=== PATIENT | female | born 1945 | race Caucasian/White ===

== ENCOUNTER 2018-12-09 09:17 | Emergency (ER) | payer MEDICARE, SELFPAY ==
[2018-12-09] MEDS ORDERED: TYLENOL EXTRA STRENGTH 500 MG PO STA (09:50)
[2018-12-09] MEDS ORDERED: TYLENOL EXTRA STRENGTH 500 MG ONE (09:55)
--- NOTE | 2018-12-09 09:58 | ERPHSYRPT ---
- History of Present Illness Time Seen by Provider: 12/09/18 09:54 Source: patient Patient Subjective Stated Complaint: stated fell last night, leg gave out. co pain in left foot, hips, upper back/shoulder pain. rating pain 10/10 at this time after moving around. states unable to put any weight on left foot. states I feel like I need xrayed from my shoulder down. Triage Nursing Assessment: pt brought in by son in /. A/O speech clear, denies hitting head or loc. bruising noted to top of left foot. no other bruising or swelling noted. pt transferred to bed from [facility] with assist, no pressure applied to left. Physician History: mild ache pain constant for one day after trip and fall, left foot and hip and shoulder and back, no bleeding no neck pain no loc, speech fluent, no other injury Allergies/Adverse Reactions: Tetanus Vaccines and Toxoid [Tetanus Vaccines & Toxoid] Adverse Reaction (Severe , Verified 12/09/18 10:03) Difficulty Swallowing Home Medications: Aspirin 81 gm Chew [Baby Aspirin 81 mg Chew] 81 mg PO DAILY 12/31/14 [ History] Melatonin/Pyridoxine [Melatonin 3 mg Tablet] 1 tab PO HS PRN 12/31/14 [History] Naproxen Sodium 220 mg [Aleve 220 MG] 220 mg PO BID PRN 12/31/14 [History] Calcium Carb, Citrate/Vit D3 [Calcium + D3 ER Tablet] 1 ea PO DAILY 04/19/15 [ History] [place]-3 Fatty Acids/Fish Oil [Fish Oil 1,000 mg Softgel] 3 ea PO DAILY 04/19/15 [History] Vitamin E 1,000 unit PO DAILY 04/19/15 [History] Vitamin B Complex Vit C No.3 [B Complex with Vitamin C] 1 each PO DAILY [History] Atenolol 12.5 mg PO DAILY 12/09/18 [History] Lisinopril 10 mg [Zestril 10 MG] 10 mg PO DAILY 12/09/18 [History] Hx Tetanus, Diphtheria Vaccination/Date Given: No (recd once and had reaction to it) Hx Influenza Vaccination/Date Given: No Hx Pneumococcal Vaccination/Date Given: No Immunizations Up to Date: No - Review of Systems Constitutional: No Fever Eyes: No Vision Changes Ears, Nose, & Throat: No Throat Pain, No Painful Swallowing Respiratory: No Dyspnea Cardiac: No Chest Pain Abdominal/Gastrointestinal: No Abdominal Pain, No Vomiting Musculoskeletal: Back Pain, Fall, Joint Pain, No Neck Pain Skin: No Skin Lesions Neurological: No Dizziness, No Focal Weakness, No Headache, No Lethargy - Past Medical History Pertinent Past Medical History: Yes Neurological History: Other ENT History: Cataracts Cardiac History: Other Respiratory History: Other Endocrine Medical History: No Pertinent History Musculoskeletal History: Fibromyalgia, Osteoarthritis GI Medical History: No Pertinent History History: No Pertinent History Psycho-Social History: No Pertinent History Female Reproductive Disorders: No Pertinent History Other Medical History: R JONELLE 2006, blockages below the waist. Pt cant walk very far due to fatigue in legs. - Past Surgical History Past Surgical History: Yes Neuro Surgical History: No Pertinent History Cardiac: No Pertinent History Respiratory: No Pertinent History Gastrointestinal: No Pertinent History Genitourinary: No Pertinent History Musculoskeletal: Other Female Surgical History: Tubal Ligation, Other Other Surgical History: subcut. bakari. mastectomy with reconstruction,right hip replacement - Social History Smoking Status: Current every day smoker How long have you smoked: 45yrs Exposure to second hand smoke: Yes Drug Use: none Patient Lives Alone: No - Female History Hx Now: No - Nursing Vital Signs Nursing Vital Signs: Initial Vital Signs Temperature 99.2 F 12/09/18 09:17 Pulse Rate 70 12/09/18 09:17 Respiratory Rate 70 H 12/09/18 09:17 Blood Pressure 181/64 12/09/18 09:17 O2 Sat by Pulse Oximetry 97 12/09/18 09:17 Pain Scale Pain Intensity 6 - Adrein Coma Score Best Eye Response (Adrien): (4) open spontaneously Best Verbal Response ([place]): (5) oriented Best Motor Response (Adrien): (6) obeys commands Adrien Total: 15 - Physical Exam General Appearance: no apparent distress Head Injury: no evidence of injury Eye Exam: PERRL/EOMI, eyes nml inspection ENT Exam: airway nml Neck Exam: supple, full range of motion, No stiff neck, No meningismus Cardiovascular Exam: regular rate/rhythm Gastrointestinal Exam: soft, No tenderness Back Exam: other (tender lumbar paraspinal), No vertebral tenderness Extremity Exam: normal range of motion, pelvis stable, other (tender left deltoid and hip and foot, nontender knee and ankle and elbow, unable to bear weight on the left) Neurologic Exam: alert, oriented x 3, cooperative, 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 nml as tested Skin Exam: warm, dry SpO2 Interpretation: normal SpO2: 97 - Course Nursing assessment & vital signs reviewed: Yes - Radiology Exams Foot X-ray Interpretation: Discussed w/ radiologist, Other (+fx of 4th prox phalanx) Pelvis X-ray Interpretation: Discussed w/ radiologist, Other (+fx left pubic symphisis) Ordered Tests: Active Orders 24 hr Category Date Time Status CHEST 1 VIEW (PORTABLE) Stat Exams 12/09/18 09:51 Completed FOOT (MINIMUM 3 VIEWS) Stat Exams 12/09/18 09:51 Completed HIP BAKARI (4V) INCL PELV IF DONE Stat Exams 12/09/18 09:51 Completed LUMBAR SPINE W/O [CT] Stat Exams 12/09/18 09:53 Completed SHOULDER Stat Exams 12/09/18 09:51 Completed THORACIC SPINE W/O CONTRAST [CT] Stat Exams 12/09/18 09:53 Completed Medication Summary Discontinued Medications Generic Name Dose Route Start Last Admin Trade Name Freq PRN Reason Stop Dose Admin Acetaminophen 500 mg 12/09/18 09:50 12/09/18 09:56 Tylenol Extra Strength 500 Mg PO 12/09/18 09:51 500 mg STAT STA Administration Acetaminophen Confirm 12/09/18 09:55 Tylenol Extra Strength 500 Mg Administered 12/09/18 09:56 Dose 1,000 mg .ROUTE .STK-MED ONE - Progress Progress: unchanged Progress Note: 12/09/18 12:21 pt accepted for transfer to [facility] trauma by Dr Maldonado - Departure Departure Disposition: Transfer Clinical Impression: Fracture, pelvis closed Qualifiers: Encounter type: initial encounter Pelvic bone location: pubis Fracture alignment: displaced Laterality: left Qualified Code(s): S32.502A - Unspecified fracture of left pubis, initial encounter for closed fracture Fracture, foot Qualifiers: Encounter type: initial encounter Fracture type: closed Laterality: left Qualified Code(s): S92.902A - Unspecified fracture of left foot, initial encounter for closed fracture Condition: Stable Critical Care Time: No Referrals: MADHU MOREL NP [Primary Care Provider] -
--- NOTE | 2018-12-09 11:14 | XRAY ---
Indication: Pain following fall. Multiple contiguous axial images obtained through the thoracic spine. Sagittal and coronal reformatted images obtained. Comparison: None. Osseous structures demineralized consistent with patient's age. Axial images negative for acute fracture, suspicious bony lesions, or spinal canal stenosis. Minimal multilevel endplate spurring. Sagittal and coronal reformatted images demonstrates normal thoracic alignment with disc spaces maintained. No acute compression fracture or subluxation. Visualized noncontrasted soft tissues demonstrates moderate pulmonary emphysema, mild bilateral dependent atelectasis, indeterminate 7 mm superior right lower lobe noncalcified nodule, and scattered vascular calcifications. CT lumbar spine reported separately. Impression: 1. Osteopenia and degenerative changes similar in appearance to thoracic radiograph June 26, 2018. 2. CT thoracic spine negative for acute fracture/subluxation. 3. 7 mm indeterminate right lower lobe pulmonary nodule. Comparison studies would be of benefit if performed elsewhere. If not, consider CT chest to establish baseline with follow-up for Fleischner guidelines. 4. Pulmonary emphysema, arteriosclerotic disease, and bilateral dependent atelectasis. CT DI 33.93
--- NOTE | 2018-12-09 11:20 | XRAY ---
Indication: Pain following fall. Multiple contiguous axial images obtained through the lumbar spine. Sagittal and coronal reformatted images obtained. Comparison: None. CT thoracic spine reported separately. Osseous structures demineralized consistent with patient's age. Remote appearing L2 superior endplate fracture with 50% height loss and kyphoplasty. Remaining levels negative for acute fracture or suspicious bony lesions. Mild multilevel annular disc osteophyte complex without large focal disc herniation or spinal canal stenosis. Also L3-S1 degenerative vacuum disc phenomena and mild bilateral L5-S1 degenerative facet arthropathy. Sagittal and coronal reformatted images demonstrates normal lumbar lordosis with minimal dextroscoliosis centered at L1. L4-S1 disc space loss. No acute compression fracture or subluxation. Visualized noncontrasted soft tissues demonstrates scattered vascular calcifications including bilateral renal arteries. Scattered sigmoid diverticulosis. Impression: 1. Negative acute fracture/subluxation. 2. Osteopenia, remote L2 endplate fracture with kyphoplasty, multilevel degenerative changes, and scoliosis. 3. Incidental scattered arteriosclerotic calcifications and sigmoid diverticulosis. CT DI 37.76
--- NOTE | 2018-12-09 11:22 | XRAY ---
Indication: Pain following fall. Comparison: None 3 views of the left shoulder demonstrates osteopenia, mild AC degenerative arthropathy, multilevel cervical thoracic degenerative spondylosis and high riding humeral head commonly seen with rotator cuff tear. No other bony, articular, or soft tissue abnormalities.
--- NOTE | 2018-12-09 11:27 | XRAY ---
Indication: Pain following fall. Comparison: Left hip November 20, 2016. AP pelvis and 2 views of the left and right hip demonstrates new minimally displaced left pubic symphysis acute fracture. Incidental osteopenia, old left inferior pubic ramus fracture, right total hip arthroplasty with intact bipolar prosthesis, mild left hip degenerative arthropathy, and scattered vascular calcifications. CT lumbar spine reported separately.
--- NOTE | 2018-12-09 11:29 | XRAY ---
Indication: Pain following fall. Comparison: August 31, 2016. Portable chest remains hyperinflated and clear. Heart is not enlarged. Bony thorax intact again with osteopenia, degenerative changes, L2 kyphoplasty, and bilateral breast augmentation. Impression: Stable nonacute hyperinflated chest with chronic features.
--- NOTE | 2018-12-09 11:33 | XRAY ---
Indication: Pain following fall. Comparison: None 3 nonweightbearing views of the left foot demonstrates tiny minimally displaced acute corner fracture base 4th proximal phalanx medial aspect. Elsewhere osteopenia, old 5th metatarsal shaft fracture, and mild 1st MTP degenerative changes.
[2018-12-09 12:16] VITALS: PULSE 73; O2SAT 97
[2018-12-09 13:07] VITALS: BP 158/101
== END 2018-12-09 13:13 | disposition short-term general hospital (02) ==
LOC: ED 09:17
DX: S32.502A Unspecified fracture of left pubis, initial encounter for closed fracture (principal); S92.902A Unspecified fracture of left foot, initial encounter for closed fracture; M79.672 Pain in left foot; M25.552 Pain in left hip; M25.551 Pain in right hip; M54.6 Pain in thoracic spine; M25.519 Pain in unspecified shoulder; M79.7 Fibromyalgia; Z96.641 Presence of right artificial hip joint; W19.XXXA Unspecified fall, initial encounter
CPT/HCPCS: 29515; 36000; 71045; 72128; 72131; 73030; 73522; 73630; 99285; A9270-GY

== ENCOUNTER 2020-04-06 13:58 | Day surgery (SDC) | payer MEDICARE ==
[2020-04-06] MEDS ORDERED: Xylocaine 1% Vial 30 ML PF IJ ONE (13:59)
[2020-04-06] MEDS ORDERED: Sodium Chloride 0.9(Preservative Free) 10 ML IJ ONE (13:59)
[2020-04-06] MEDS ORDERED: Decadron 4 MG INJ IV ONE (13:59)
[2020-04-06] MEDS ORDERED: Lactated Ringers 1,000 ML IV ONE (15:32)
--- NOTE | 2020-04-06 21:54 | XRAY ---
Indication: Cervical LEXI. Intraoperative fluoroscopy was provided for 24 seconds. 2 digital spot images submitted for interpretation demonstrates posterior midline needle tip projecting just posterior to the C7-T1 level. Small amount of contrast injected for needle tip placement. Correlate with intraoperative findings/report.
--- NOTE | 2020-04-06 21:56 | XRAY ---
24 seconds fluoroscopy time in surgery for cervical LEXI.
== END 2020-04-06 16:45 | disposition home or self-care (01) ==
LOC: SDC-PAIN 13:58
PROVIDERS: ATTEND Psychiatry & Neurology Pain Medicine
DX: M54.12 Radiculopathy, cervical region (principal); M19.90 Unspecified osteoarthritis, unspecified site; M06.9 Rheumatoid arthritis, unspecified; M79.7 Fibromyalgia; I10 Essential (primary) hypertension; Z79.899 Other long term (current) drug therapy
CPT/HCPCS: 62321; 72040; 77003; J1100; J2001; Q9966

== ENCOUNTER 2020-04-27 09:51 | Day surgery (SDC) | payer MEDICARE ==
[~2020-04-27 09:51] MED LIST: DIPRIVAN 200 MG/20 ML IV ONE; Ketamine HCl 50 MG/ML ONE
[2020-04-27] MEDS ORDERED: Xylocaine-Mpf 2% 5 Ml Vial IJ ONE (09:52)
[2020-04-27] MEDS ORDERED: Depo-Medrol 40 MG/ML IM ONE (09:52)
[2020-04-27 11:01] LABS: Absolute Neutrophil Ct (ANC) 3.65 (1.4-6.9); BASOPHIL % 0.3 % (0.0-0.4); Basophil (Absolute #) 0.02 (0-0.4); Eosinophil (Absolute #) 0.12 (0-0.5); Hematocrit 43.5 % (35-47); Hemoglobin 14.4 gm/dl (12.0-16.0); Lymphocyte (Absolute #) 1.91 (1.0-4.6); Lymphocytes % 31.4 % (24.0-44.0); Mean Cell Volume 100.5 fl (78-100); Mean Corpuscular Hemoglobin 33.3 pg (26-32); Mean Corpuscular Hgb Concent. 33.1 g/dl (32-36); Monocyte (Absolute #) 0.39 (0.0-1.3); Monocytes % 6.4 % (0.0-12.0); Neutrophil % 59.9 % (36.0-66.0); Platelet Count 232 K/mm3 (150-450); Red Blood Count 4.33 M/mm3 (4.1-5.4); Red Cell Distribution Width 13.6 % (11.5-14.0); White Blood Count 6.1 K/mm3 (4.0-10.5)
[2020-04-27 12:02] LABS: ALBUMIN 4.2 g/dL (3.5-5.0); ALKALINE PHOSPHATASE 70 U/L (38-126); ANION GAP 7.7 MEQ/L (5-15); BLOOD UREA NITROGEN 13 mg/dL (7-17); CHLORIDE 103 mmol/L (98-107); Calcium 9.5 mg/dL (8.4-10.2); Carbon Dioxide 30 mmol/L (22-30); Cholesterol 240 mg/dL (50-200); Creatinine 1 0.63 mg/dL (0.52-1.04); EST GLOMERULAR FILTRATION RATE > 60.0 ML/MIN; Glucose 103 mg/dL (74-106); HDL CHOLESTEROL 96 mg/dL (40-60); LDL, DIRECT 132 mg/dL (30-100); Potassium 3.9 mmol/L (3.5-5.1); Risk Ratio 2.5; SGOT/AST 32 U/L (14-36); SGPT/ALT 15 U/L (0-35); SODIUM 137 mmol/L (137-145); TRIGLYCERIDE 123 mg/dL (30-150); Total Protein 7.2 g/dL (6.3-8.2)
[2020-04-27] MEDS ORDERED: Lactated Ringers 1,000 ML IV ONE (13:53)
--- NOTE | 2020-04-28 14:55 | XRAY ---
39 seconds fluoroscopy time in surgery for bilateral L4-S1 MBB.
--- NOTE | 2020-04-30 22:44 | XRAY ---
Indication: Bilateral L4-S1 MBB. Intraoperative fluoroscopy was provided for 39 seconds. A single digital spot image submitted for interpretation demonstrates posterior spinal needle tips projected over the expected course of the left and right L4-S1 nerve roots. Correlate with intraoperative findings/report.
== END 2020-04-27 12:03 | disposition home or self-care (01) ==
LOC: SDC-PAIN 09:51
PROVIDERS: ATTEND Psychiatry & Neurology Pain Medicine
DX: M47.816 Spondylosis without myelopathy or radiculopathy, lumbar region (principal); M47.817 Spondylosis without myelopathy or radiculopathy, lumbosacral region; I10 Essential (primary) hypertension; M06.9 Rheumatoid arthritis, unspecified; E78.5 Hyperlipidemia, unspecified; R53.83 Other fatigue; M79.7 Fibromyalgia; Z79.899 Other long term (current) drug therapy
CPT/HCPCS: 36415; 64493; 64494; 72020; 77002; 80053; 80061; 83721; 85025; J1030; J2704

== ENCOUNTER 2020-07-20 12:35 | Day surgery (SDC) | payer MEDICARE ==
[2020-07-20] MEDS ORDERED: Depo-Medrol 40 MG/ML IM ONE (12:36)
[2020-07-20] MEDS ORDERED: BUPIVACAINE 0.5% VIAL IJ ONE (12:36)
[2020-07-20] MEDS ORDERED: Ketamine HCl 50 MG/ML ONE (13:50)
[2020-07-20] MEDS ORDERED: DIPRIVAN 200 MG/20 ML IV ONE (13:50)
--- NOTE | 2020-07-20 15:04 | XRAY ---
Indication: Bilateral L4-S1 MBB. Intraoperative fluoroscopy was provided for 8 seconds. Single digital spot image submitted for interpretation demonstrates posterior needle tips projecting over the expected left and right L4-S1 nerve roots. Correlate with intraoperative findings/report.
--- NOTE | 2020-07-20 15:21 | XRAY ---
8 seconds fluoroscopy time in surgery for bilateral L4-S1 MBB.
[2020-07-20] MEDS ORDERED: Lactated Ringers 1,000 ML IV ONE (16:06)
== END 2020-07-20 14:14 | disposition home or self-care (01) ==
LOC: SDC-PAIN 12:35
PROVIDERS: ATTEND Psychiatry & Neurology Pain Medicine
DX: M47.816 Spondylosis without myelopathy or radiculopathy, lumbar region (principal); I10 Essential (primary) hypertension; M79.7 Fibromyalgia; Z79.899 Other long term (current) drug therapy
CPT/HCPCS: 64493; 64494; 72020; 77002; J1030; J2704

== ENCOUNTER 2020-07-26 09:14 | Emergency (ER) | payer MEDICARE ==
--- NOTE | 2020-07-26 09:36 | ERPHSYRPT ---
- History of Present Illness Time Seen by Provider: 07/26/20 09:35 Source: patient Exam Limitations: no limitations Patient Subjective Stated Complaint: Pt states "I fell a little over a week ago and went to Dr. Madison and got a steroid epidural a week ago and the pain was down but when the steroid wore off, I just cannot get comfotable." Triage Nursing Assessment: Pt presented alert and oriented X 3, skin pwd Pt ambulates with a slow shuffling gait, able to speak in clear full sentences pt in no apparent respiratory distress. Pt has no bruising, no swelling noted to back. 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 Physician History: This is a 74-year-old white female who has chronic back problems. She has a history of peripheral vascular disease and hypertension. She sees a pain specialist, Dr. Rivera for control of her chronic back pain. Patient has had a right hip replacement. She had a kyphoplasty in 2008. She saw Dr[address] Rivera approximately 07/21/2020 for a injection in her spine of steroid and Marcaine combination. That injection, per her report was in the lumbar spine area. However, she did tell him that she had fallen a couple days earlier and she was having pain in the thoracic spine region. Since that time of fall, she has had persistent pain in the thoracic spine area and the right rib area. She states she is only here to obtain x-rays to make sure there is no new fractures p resent. Timing/Duration: other (Over a week ago) Severity: moderate Modifying Factors: Improves With: movement (Worsens) Associated Symptoms: denies symptoms Allergies/Adverse Reactions: Tetanus Vaccines and Toxoid [Tetanus Vaccines & Toxoid] Adverse Reaction (Severe, Verified 12/09/18 10:03) Difficulty Swallowing Home Medications: Aspirin 81 gm Chew [Baby Aspirin 81 mg Chew] 81 mg PO DAILY 12/31/14 [History] Melatonin/Pyridoxine [Melatonin 3 mg Tablet] 1 tab PO HS PRN 12/31/14 [History] Naproxen Sodium 220 mg [Aleve 220 MG] 220 mg PO BID PRN 12/31/14 [History] Calcium Carb, Citrate/Vit D3 [Calcium + D3 ER Tablet] 1 ea PO DAILY 04/19/15 [History] [place]-3 Fatty Acids/Fish Oil [Fish Oil 1,000 mg Softgel] 3 ea PO DAILY 04/19/15 [History] Vitamin E 1,000 unit PO DAILY 04/19/15 [History] Vitamin B Complex Vit C No.3 [B Complex with Vitamin C] 1 each PO DAILY 06/16/15 [History] Lisinopril 10 mg [Zestril 10 MG] 10 mg PO DAILY 12/09/18 [History] atenoloL [Atenolol] 12.5 mg PO DAILY 12/09/18 [History] Hx Tetanus, Diphtheria Vaccination/Date Given: No Hx Influenza Vaccination/Date Given: Yes Hx Pneumococcal Vaccination/Date Given: Yes Immunizations Up to Date: Yes Travel Risk - International Travel Have you traveled outside of the country in past 3 weeks: No - Coronavirus Screening Are you exhibiting any of the following symptoms?: No Close contact with a COVID-19 positive Pt in past 14-21 Days: No - Review of Systems Constitutional: No Symptoms Eyes: No Symptoms Ears, Nose, & Throat: No Symptoms Respiratory: No Symptoms Cardiac: No Symptoms Abdominal/Gastrointestinal: No Symptoms Genitourinary Symptoms: No Symptoms Musculoskeletal: Fall Skin: No Symptoms Neurological: No Symptoms Psychological: No Symptoms Endocrine: No Symptoms Hematologic/Lymphatic: No Symptoms Immunological/Allergic: No Symptoms All Other Systems: Reviewed and Negative - Past Medical History Pertinent Past Medical History: Yes Neurological History: Other ENT History: Cataracts Cardiac History: Other Respiratory History: Other Endocrine Medical History: No Pertinent History Musculoskeletal History: Fibromyalgia, Osteoarthritis GI Medical History: No Pertinent History History: No Pertinent History Psycho-Social History: No Pertinent History Female Reproductive Disorders: No Pertinent History Other Medical History: R JONELLE 2006, blockages below the waist. Pt cant walk very far due to fatigue in legs. - Past Surgical History Past Surgical History: Yes Neuro Surgical History: No Pertinent History Cardiac: No Pertinent History Respiratory: No Pertinent History Gastrointestinal: No Pertinent History Genitourinary: No Pertinent History Musculoskeletal: Other Female Surgical History: Tubal Ligation, Other Other Surgical History: subcut. shaheen. mastectomy with reconstruction,right hip replacement - Social History Smoking Status: Current every day smoker How long have you smoked: years Exposure to second hand smoke: Yes Drug Use: none Patient Lives Alone: No - Female History Hx Now: No - Nursing Vital Signs Nursing Vital Signs: Initial Vital Signs Temperature 98.7 F 07/26/20 09:25 Pulse Rate 66 07/26/20 09:25 Respiratory Rate 20 07/26/20 09:25 Blood Pressure 198/94 07/26/20 09:25 O2 Sat by Pulse Oximetry 97 07/26/20 09:25 Pain Scale Pain Intensity [Back] 8 Pain Intensity 8 - Physical Exam General Appearance: no apparent distress, alert, anxiety, thin Eye Exam: PERRL/EOMI, eyes nml inspection Ears, Nose, Throat Exam: normal ENT inspection, moist mucous membranes Neck Exam: normal inspection, non-tender, supple, full range of motion Respiratory Exam: airway intact, No chest tenderness, No respiratory distress Gastrointestinal/Abdomen Exam: No tenderness Pelvic Exam: not done Rectal Exam: not done Back Exam: normal inspection, vertebral tenderness (Mid thoracic level), decreased range of motion, No CVA tenderness Extremity Exam: normal inspection, normal range of motion, No pelvis stable Neurologic Exam: alert, oriented x 3, cooperative, life advisor II-XII nml as tested, normal mood/affect, nml cerebellar function, sensation nml Skin Exam: normal color, warm, dry Lymphatic Exam: No adenopathy SpO2 Interpretation: normal SpO2: 97 O2 Delivery: Room Air - Course Nursing assessment & vital signs reviewed: Yes Ordered Tests: Active Orders 24 hr Category Date Time Status RIBS UNILATERAL Stat Exams 07/26/20 10:32 Completed THORACIC SPINE (AP,LAT,SWIMM) Stat Exams 07/26/20 09:49 Completed - Progress Progress: pain not gone completely, re-examined Progress Note: 07/26/20 11:01 Right side rib x-ray shows old rib fractures no acute fractures present. X-ray of the thoracic spine (comparison CT chest May 13, 2020) there is a new T8 superior endplate fracture with approximately 50% height loss. Counseled pt/family regarding: diagnosis, need for follow-up, rad results - Departure Departure Disposition: Home Clinical Impression: Thoracic spine fracture Condition: Stable Critical Care Time: No Referrals: MADHU MOREL NP [Primary Care Provider] - Additional Instructions: Make sure you contact your pain specialist prior to picking up the narcotic pain medicine that was written for. This is to help prevent any cancellation of your pain contract with your pain specialist. If you do not verify, prior to picking up the prescription and taking it, you take the chance of canceling your pain co ntract. Bedrest except for bathroom privileges. Prescriptions: Oxycodone HCl/Acetaminophen [Percocet 5-325 mg Tablet] 1 each PO Q8H PRN PRN #6 tablet MDD 3 PRN Reason: Pain
--- NOTE | 2020-07-26 10:55 | XRAY ---
Indication: Pain following fall one week ago. Comparison: None 2 view right ribs demonstrates osteopenia, old 5-7 rib fractures, minimal/mild multilevel degenerative spondylosis, L2 kyphoplasty, mild/moderate right shoulder degenerative changes, and scattered aortic calcifications. Right midlung nodule detailed on CT chest May 13, 2020. No other bony, articular, or soft tissue abnormalities.
--- NOTE | 2020-07-26 10:57 | XRAY ---
Indication: Pain following fall one week ago. Comparison: CT chest May 13, 2020. AP/lateral thoracic spine demonstrates new T8 superior endplate fracture with 50% height loss. Stable osteopenia, mild multilevel degenerative spondylosis, remote L1 fracture with kyphoplasty, and scattered aortic calcifications. No other bony, articular, or soft tissue abnormalities.
[2020-07-26] MEDS ORDERED: Hydromorphone 1 mg/ml Injection IM ONE (10:59)
[2020-07-26] MEDS ORDERED: ZOFRAN ODT 4 MG PO ONE (11:00)
[2020-07-26] MEDS ORDERED: ZOFRAN ODT 4 MG ONE (11:16)
[2020-07-26] MEDS ORDERED: Hydromorphone 1 mg/ml Injection ONE (11:16)
[2020-07-26 11:31] VITALS: BP 170/67; PULSE 64; O2SAT 99
== END 2020-07-26 12:06 | disposition home or self-care (01) ==
LOC: ED 09:14
DX: S22.068A Other fracture of T7-T8 thoracic vertebra, initial encounter for closed fracture (principal); I10 Essential (primary) hypertension; I73.9 Peripheral vascular disease, unspecified; Z79.899 Other long term (current) drug therapy; Z79.891 Long term (current) use of opiate analgesic
CPT/HCPCS: 71100; 72072; 96372; 99284; J1170; Q0162

== ENCOUNTER 2022-07-12 11:01 | Emergency (ER) | payer MEDICARE ==
[2022-07-12 11:15] VITALS: O2SAT 95
--- NOTE | 2022-07-12 12:30 | XRAY ---
Indication: Headache following fall 5 days ago. Bruising both eyes and nose. Multiple contiguous axial images obtained through the head without contrast. Comparison: None Age-appropriate global atrophy, moderate periventricular degenerative micro-ischemia bilaterally, and remote lacunar infarct right basal ganglia. No acute intracranial hemorrhage, abnormal extra-axial fluid collection, or mass effect. Fourth ventricle is midline without hydrocephalus. Bony calvarium intact. Visualized paranasal sinuses and mastoid air cells are clear. 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
--- NOTE | 2022-07-12 12:34 | XRAY ---
Indication: Headache following fall 5 days ago. Bruising both eyes and nose. Multiple contiguous axial images obtained through the facial bones. Sagittal and coronal reformatted images obtained. Comparison: None Patient is edentulous. Osseous structures demineralized consistent with patient's age. No acute fracture, suspicious bony lesions, or radiopaque foreign body. Orbits including roof, delaney, and floors intact. Minimal mucosal thickening floor right maxillary sinus. Remaining paranasal sinuses and nasal passages are clear. Mild nasal septal deviation to the left. Mild right and moderate left TMJ degenerative changes. Remaining visualized noncontrasted soft tissues are unremarkable. Impression: 1. Osteopenia, bilateral TMJ degenerative changes, mild nasoseptal deviation, and minimal right maxillary sinus disease. 2. Remaining CT facial bones is negative.
--- NOTE | 2022-07-12 12:38 | XRAY ---
Indication: Headache following fall 5 days ago. Bruising both eyes and nose. Multiple contiguous axial images obtained through the cervical spine. Sagittal and coronal reformatted images obtained. Comparison: None Osseous structures demineralized consistent with patient's age. Anatomic variant referred nonunited posterior arch C1. Axial images are negative for acute fracture or suspicious bony lesions. Mild/moderate multilevel degenerative endplate spurring greatest at C5-C6 level where there is subsequent spinal canal stenosis. Also mild/moderate multilevel bilateral degenerative facet hypertrophy left greater than right and moderate atlantoaxial degenerative changes. Sagittal and coronal reformatted images demonstrates normal alignment. C5-C7 disc space loss. Remote T1 superior endplate fracture with less than 25% height loss. No acute compression fracture, subluxation, or jumped facet. Normal appearing craniocervical junction. Visualized noncontrasted soft tissues demonstrates moderate bilateral carotid calcifications. Impression: 1. Negative acute fracture/subluxation. 2. Osteopenia. Also multilevel degenerative changes greatest at C5-C6 level where there is spinal canal stenosis. 3. Scattered archers carotid calcifications.
--- NOTE | 2022-07-12 12:44 | XRAY ---
Indication: Chest pain following fall 5 days ago. Multiple contiguous axial images obtained through the chest without contrast. Comparison: December 06, 2020 Lungs again demonstrates diffuse pulmonary emphysema with bibasilar fibrosis/scarring. There remains a few small bilateral calcified and noncalcified pulmonary nodules favored to be granulomatous. No new suspicious pulmonary mass, infiltrate, effusion, or pneumothorax. Heart not enlarged again with scattered coronary calcifications. Aorta remains moderately a sclerotic without aneurysm. No pathologic mediastinal lymphadenopathy. Bony thorax again demonstrates osteopenia, mild/moderate degenerative changes throughout the spine,T9/L2 kyphoplasty, old right 4-6 rib fractures, and bilateral calcified breast implants.. New T8 kyphoplasty. Limited upper abdomen again demonstrate scattered vascular calcifications including renal arteries. Impression: 1. Again chronic findings including pulmonary emphysema, calcified/noncalcified nodules, arteriosclerotic disease, and chronic bony findings. 2. No new or acute cardiopulmonary abnormalities on this noncontrast exam.
--- NOTE | 2022-07-12 13:08 | ERPHSYRPT ---
- History of Present Illness Time Seen by Provider: 07/12/22 11:10 Source: patient Exam Limitations: no limitations Patient Subjective Stated Complaint: " I fell on Saturday evening and I have had a headache ever since. I felt like I was struck on the head by something and fell to the ground, the pain was so bad and I had to crawl around until I got my phone to call my grandson to come pick me up off the floor". Triage Nursing Assessment: [facility], pt experienced a fall on Saturday at approx 5:30pm, unknown trauma or LOC. Pt does have some slight bruising to the right eye and forehead. Pt is alert and alexandra ented x 3 at this time. Skin is pink, warm, and dry. Skin tears to below bilateral knees from the fall which is being treated for by the wound clinic. Pt states has headache since fall, rates pain 5/10 scale. States pain is continous pressure. States pain radiates down her upper back by her shoulder blades, pt eyes are PERRL. Physician History: Patient is a 76-year-old white female who suffered a fall several days ago and has had a bilateral frontal headache since. She said she was walking through the house when she felt almost like a crack over the top of the head and she fell back hitting the back of her head on the door and sliding down. She says it is a burning type of pain. She denies any loss of consciousness she has had no vomiting. Occurred: days ago (6) Reason for Fall: unknown Injuries/Pain Location: head, neck Loss of Consciousness: no loss of consciousness Quality: throbbing Severity of Pain-Max: moderate Severity of Pain-Current: moderate Associated Symptoms (Fall): headache, neck pain Allergies/Adverse Reactions: Tetanus Vaccines and Toxoid [Tetanus Vaccines & Toxoid] Adverse Reaction (Severe, Verified 07/12/22 11:17) Difficulty Swallowing states CAN have toxiod but no other tetanus Sulfa (Sulfonamide Antibiotics) Adverse Reaction (Unknown, Verified 07/12/22 11:17) states was allergic to sulfa at age 4 when had meningitis Home Medications: Melatonin/Pyridoxine [Melatonin 3 mg Tablet] 1 tab PO HSPRN PRN 12/31/14 [History] [place]-3 Fatty Acids/Fish Oil [Fish Oil 1,000 mg Softgel] 3 ea PO DAILY 04/19/15 [History] Lisinopril 10 mg [Zestril 10 MG] 10 mg PO DAILY 12/09/18 [History] atenoloL [Atenolol] 12.5 mg PO DAILY 12/09/18 [History] Amlodipine Besylate [Norvasc] 5 mg PO DAILY 01/08/22 [History] Ascorbic Acid [Vitamin C] 1,000 mg PO DAILY 01/08/22 [History] Cholecalciferol (Vitamin D3) [Vitamin D3] 125 mcg PO DAILY 01/08/22 [History] Cyanocobalamin (Vitamin B-12) [Vitamin B-12] 1,000 mcg PO DAILY 01/08/22 [History] Meloxicam 15 mg [Meloxicam 15 MG] 15 mg PO DAILY 01/08/22 [History] Vit A/Vit C/Vit E/Zinc/Copper [Eye Multivitamin Tablet] 1 each PO DAILY 01/08/22 [History] Zinc Gluconate [Zinc] 20 mg PO DAILY 01/08/22 [History] Hx Tetanus, Diphtheria Vaccination/Date Given: No Hx Influenza Vaccination/Date Given: Yes Hx Pneumococcal Vaccination/Date Given: Yes Immunizations Up to Date: Yes Travel Risk - International Travel Have you traveled outside of the country in past 3 weeks: No - Coronavirus Screening Are you exhibiting any of the following symptoms?: No Close contact with a COVID-19 positive Pt in past 14-21 Days: No - Vaccine Status Have you recieved a Covid-19 vaccination: Yes [employer]: [employer] - Review of Systems Constitutional: No Fever, No Chills Eyes: No Symptoms Ears, Nose, & Throat: No Symptoms Respiratory: No Cough, No Dyspnea Cardiac: No Chest Pain, No Edema, No Syncope Abdominal/Gastrointestinal: No Abdominal Pain, No Nausea, No Vomiting, No Diarrhea Genitourinary Symptoms: No Dysuria Musculoskeletal: No Back Pain, No Neck Pain Skin: No Rash Neurological: No Dizziness, No Focal Weakness, No Sensory Changes Psychological: No Symptoms Endocrine: No Symptoms All Other Systems: Reviewed and Negative - Past Medical History Pertinent Past Medical History: Yes Neurological History: Other ENT History: Cataracts Cardiac History: Hypertension, Other Respiratory History: Other Endocrine Medical History: No Pertinent History Musculoskeletal History: Fibromyalgia, Fractures, Osteoarthritis GI Medical History: No Pertinent History History: No Pertinent History Psycho-Social History: No Pertinent History Female Reproductive Disorders: No Pertinent History Other Medical History: R JONELLE 2006, blockages below the waist. Pt cant walk very far due to fatigue in legs. Meningitis at age 4 - Past Surgical History Past Surgical History: Yes Neuro Surgical History: No Pertinent History Cardiac: No Pertinent History Respiratory: No Pertinent History Gastrointestinal: No Pertinent History Genitourinary: No Pertinent History Musculoskeletal: Other Female Surgical History: Tubal Ligation, Other Other Surgical History: subcut. shaheen. mastectomy with reconstruction,right hip replacement, kyphoplasty x 2. - Social History Smoking Status: Current every day smoker How long have you smoked: years Exposure to second hand smoke: Yes Drug Use: none Patient Lives Alone: No - Nursing Vital Signs Nursing Vital Signs: Initial Vital Signs Temperature 97.8 F 07/12/22 11:02 Pulse Rate 70 07/12/22 11:02 Respiratory Rate 14 07/12/22 11:02 Blood Pressure 185/85 07/12/22 11:02 O2 Sat by Pulse Oximetry 95 07/12/22 11:02 Pain Scale Pain Intensity 5 - Adrien Coma Score Best Eye Response (Adrien): (4) open spontaneously Best Verbal Response ([place]): (5) oriented Best Motor Response ([place]): (6) obeys commands Adrien Total: 15 - Physical Exam General Appearance: mild distress, alert Head Injury: no evidence of injury Eye Exam: PERRL/EOMI ENT Exam: airway nml Neck Exam: normal inspection, No tenderness Respiratory/Chest Exam: normal breath sounds, No chest tenderness, No respiratory distress Cardiovascular Exam: normal heart sounds, regular rate/rhythm Gastrointestinal Exam: soft, No tenderness, No distention, No guarding, No ecchymosis Back Exam: normal inspection, No vertebral tenderness Extremity Exam: normal inspection, normal range of motion, pelvis stable, No deformities Neurologic Exam: alert, oriented x 3, cooperative, sensation nml, No motor deficits Skin Exam: normal color, warm, dry SpO2: 95 - Course Nursing assessment & vital signs reviewed: Yes - CT Exams Head CT Interpretation: Negative, No Fracture Maxillofacial Bones CT Interpretation: Other (Right maxillary sinusitis) Cervical Spine CT Interpretation: Negative, No Fracture Chest CT Interpretation: Negative, No Fracture Ordered Tests: Active Orders 24 hr Category Date Time Status CERVICAL SPINE WO CONTRAST [CT] Stat Exams 07/12/22 11:30 Completed CHEST WITHOUT CONTRAST [CT] Stat Exams 07/12/22 11:30 Completed FACIAL BONES WO CONTRAST [CT] Stat Exams 07/12/22 11:30 Completed HEAD WITHOUT CONTRAST [CT] Stat Exams 07/12/22 11:30 Completed - Progress Progress: unchanged - Departure Departure Disposition: Home Clinical Impression: Fall, Sinusitis, Multiple contusions, Fall at home Condition: Stable Critical Care Time: No Referrals: ANAIS GAN DO [Primary Care Provider] - Follow up/PCP as directed Instructions: Contusion (DC), Sinusitis, Adult (DC) Prescriptions: Azithromycin 250 mg [Zithromax 250 MG TABLET] 250 mg PO ZPACK #6 tablet
[2022-07-12 13:33] VITALS: BP 160/70; PULSE 66
== END 2022-07-12 13:25 | disposition home or self-care (01) ==
LOC: ED 11:01 → EDSTATUS 11:01 → ED 13:25
DX: T14.8XXA Other injury of unspecified body region, initial encounter (principal); W18.30XA Fall on same level, unspecified, initial encounter; J32.9 Chronic sinusitis, unspecified; I10 Essential (primary) hypertension; Z79.899 Other long term (current) drug therapy; Z72.0 Tobacco use
CPT/HCPCS: 70450; 70486; 71250; 72125; 99283

== ENCOUNTER 2023-06-14 13:40 | Emergency (ER) | payer MEDICARE ==
[2023-06-14 14:11] VITALS: TEMP 99.2
[2023-06-14] MEDS ORDERED: Zofran 4 MG/2 ML VIAL IV ONE (14:25)
[2023-06-14] MEDS ORDERED: Sodium Chloride 0.9% 1000 ML 1,000 ML IV STA ×2 (14:25→17:24)
[2023-06-14] MEDS ORDERED: Sodium Chloride 0.9% 1000 ML 1,000 ML ONE ×2 (14:34→17:45)
[2023-06-14] MEDS ORDERED: Zofran 4 MG/2 ML VIAL ONE (14:34)
[2023-06-14 14:46] LABS: Absolute Neutrophil Ct (ANC) 4.43 x10^3/uL (1.4-6.9); BASOPHIL % 0.2 % (0.0-0.4); Basophil (Absolute #) 0.01 x10^3/uL (0-0.4); Eosinophil (Absolute #) 0 x10^3/uL (0-0.5); Hematocrit 45.3 % (35-47); Hemoglobin 15.2 g/dL (12.0-16.0); Lymphocyte (Absolute #) 0.29 x10^3/uL (1.0-4.6); Mean Cell Volume 96.4 fL (78-100); Mean Corpuscular Hemoglobin 32.3 pg (26-32); Mean Corpuscular Hgb Concent. 33.6 g/dL (32-36); Mean Platelet Volume 9.2 fL (7.5-11.0); Monocyte (Absolute #) 0.07 x10^3/uL (0.0-1.3); Monocytes % 1.5 % (0.0-12.0); Neutrophil % 92.3 % (36.0-66.0); Platelet Count 208 x10^3/uL (150-450); Red Cell Distribution Width 13.1 % (11.5-14.0); White Blood Count 4.8 x10^3/uL (4.0-10.5)
[2023-06-14 15:00] LABS: ALBUMIN 4.2 g/dL (3.5-5.0); ANION GAP 15.8 MEQ/L (5-15); Calcium 9.8 mg/dL (8.4-10.2); Creatinine 1 0.7 mg/dL (0.52-1.04); EST GLOMERULAR FILTRATION RATE 89.6 ML/MIN; Potassium 3.5 mmol/L (3.5-5.1); Total Protein 7.2 g/dL (6.3-8.2)
[2023-06-14 15:26] LABS: INFLUENZA A NEGATIVE (NEGATIVE); INFLUENZA B NEGATIVE (NEGATIVE); RESPIRATORY SYNCTIAL VIRUS NEGATIVE (NEGATIVE); SARS-CoV-2 Xpert Express NEGATIVE (NEGATIVE)
--- NOTE | 2023-06-14 15:30 | XRAY ---
Indication: Cough. Covid 19 exposure. Comparison: April 07, 2021 Portable chest again demonstrates COPD without focal infiltrate, consolidation, or large effusion. Heart not enlarged. Bony thorax intact again with osteopenia, degenerative changes, mild scoliosis, and T8/T9/L2 vertebroplasty. New right humerus orthopedic hardware. Impression: Continued nonacute chest with chronic features.
[2023-06-14 15:45] LABS: Slide Review 1 YES
--- NOTE | 2023-06-14 16:54 | XRAY ---
Indication: Cough. Covid 19 exposure. Nonacute chest radiograph. Abdominal pain. Multiple contiguous axial images obtained through the chest without contrast. Comparison: July 12, 2022 Lungs again demonstrates diffuse pulmonary emphysema, minimal bibasilar fibrosis/scarring, and small bilateral calcified/noncalcified granulomatous nodules. No new pulmonary mass/nodule, infiltrate, effusion, or pneumothorax. Heart not enlarged again with scattered coronary calcifications. Aorta again moderately arteriosclerotic without aneurysm. No pathologic mediastinal lymphadenopathy. Bony thorax intact again with osteopenia, mild/moderate degenerative changes about spine, T8/T9/L2 kyphoplasty, old right rib fractures, and bilateral calcified breast implants. Limited upper abdomen again demonstrates scattered vascular calcifications including both renal arteries. Impression: Again chronic findings include pulmonary emphysema, calcified/noncalcified granulomatous nodules, arteriosclerotic disease, and chronic bony findings. No new/acute abnormalities on this noncontrast exam.
--- NOTE | 2023-06-14 16:58 | XRAY ---
Indication: Abdomen pain. Multiple contiguous axial images obtained through abdomen and pelvis without contrast. Comparison: None CT chest reported separately. Beam artifact from patient's right arm and right hip prosthesis limits exam. Noncontrasted stomach and bowel loops appear nonobstructed. Descending and sigmoid diverticulosis without diverticulitis. No free fluid/air. Remaining liver, gallbladder, pancreas, spleen, adrenal glands, kidneys, ureters, bladder, and uterus are unremarkable for noncontrast exam. Heavy scattered arteriosclerotic calcifications including both renal arteries. No AAA. Osseous structures intact with osteopenia, mild/moderate multilevel degenerative spondylosis, L2 kyphoplasty, old left pubic bone fracture, and mild left hip degenerative arthropathy. Impression: 1. Beam artifact from patient's right arm and right hip prosthesis. 2. Chronic findings including colonic diverticulosis, extensive arteriosclerotic disease, and chronic bony findings. 3. Remaining CT abdomen/pelvis without contrast exam grossly negative.
[2023-06-14 17:49] LABS: Appearance Clear (Clear); Bacteria None Seen /HPF (None Seen); Bilirubin Negative (Negative); Blood Negative (Negative); Epithelial Cells Rare /HPF (None Seen); Glucose, Urine Negative (Negative); Hyaline Casts NONE SEEN /LPF (0-2); Ketones Trace (Negative); Leukocyte Esterase Trace (Negative); Nitrite Negative (Negative); Ph 6.5 (4.6-8.0); Protein,Urine Dip Trace (Negative); RBC 0-2 /HPF (0-5); Specific Gravity 1.015 (1.005-1.030); Urobilinogen 0.2 mg/dL (0.2); WBC 0-2 /HPF (0-5)
[2023-06-14 17:50] LABS: ADD URINE CULTURE? NO (NO)
--- NOTE | 2023-06-14 18:21 | ERPHSYRPT ---
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 My belly feels like someone gut punched me and I am vomiting. I just hurt." Triage Nursing Assessment: Pt presented alert and oriented X3, skin pwd. Pt ambulates with a slow gait, able to speak in clear full sentences. PT has some generalized weakness and tender in abdomen to touch. Physician History: Patient is 77-year-old female reports to the ER complaining of nausea vomiting x1 day associated with chills and generalized lethargy. She has mild diffuse abdominal pain which she rates mild to moderate. Patient has been exposed to COVID by her caregiver. She has mild coryza without cough. Patient has history of hypertension and still smokes less than 1 pack a day. Denies chest pain, dysuria, hematuria, melena, hematochezia, and focal weakness. Additional history from her [id number]. Timing/Duration: yesterday Activities at Onset: rest Quality: dullness, fullness Abdominal Pain Onset Location: generalized abdomen Pain Radiation: no radiation Severity of Pain-Max: moderate Severity of Pain-Current: mild Modifying Factors: Improves With: nothing Associated Symptoms: denies symptoms Previous symptoms: no prior history Allergies/Adverse Reactions: Tetanus Vaccines and Toxoid [Tetanus Vaccines & Toxoid] Adverse Reaction (Severe, Verified 07/12/22 11:17) Difficulty Swallowing states CAN have toxiod but no other tetanus Sulfa (Sulfonamide Antibiotics) Adverse Reaction (Unknown, Verified 07/12/22 11:17) states was allergic to sulfa at age 4 when had meningitis Home Medications: Melatonin/Pyridoxine [Melatonin 3 mg Tablet] 1 tab PO HSPRN PRN 12/31/14 [History] [employer] Fatty Acids/Fish Oil [Fish Oil 1,000 mg Softgel] 3 ea PO DAILY 04/19/15 [History] Lisinopril 10 mg [Zestril 10 MG] 10 mg PO DAILY 12/09/18 [History] atenoloL [Atenolol] 12.5 mg PO DAILY 12/09/18 [History] Amlodipine Besylate [Norvasc] 5 mg PO DAILY 01/08/22 [History] Ascorbic Acid [Vitamin C] 1,000 mg PO DAILY 01/08/22 [History] Cholecalciferol (Vitamin D3) [Vitamin D3] 125 mcg PO DAILY 01/08/22 [History] Cyanocobalamin (Vitamin B-12) [Vitamin B-12] 1,000 mcg PO DAILY 01/08/22 [History] Meloxicam 15 mg [Meloxicam 15 MG] 15 mg PO DAILY 01/08/22 [History] Vit A/Vit C/Vit E/Zinc/Copper [Eye Multivitamin Tablet] 1 each PO DAILY 01/08/22 [History] Zinc Gluconate [Zinc] 20 mg PO DAILY 01/08/22 [History] Hx Tetanus, Diphtheria Vaccination/Date Given: No Hx Influenza Vaccination/Date Given: Yes Hx Pneumococcal Vaccination/Date Given: Yes Immunizations Up to Date: Yes Travel Risk - International Travel Have you traveled outside of the country in past 3 weeks: No - Coronavirus Screening Are you exhibiting any of the following symptoms?: Yes Symptoms: Fever, Vomiting/Diarrhea, Headaches/Body Aches/Fatigue Close contact with a COVID-19 positive Pt in past 14-21 Days: Yes - Vaccine Status Have you recieved a Covid-19 vaccination: Yes 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: [employer] - Review of Systems Constitutional: No Symptoms, Lethargy, Malaise, Weakness Eyes: No Symptoms Ears, Nose, & Throat: No Symptoms, Nose Congestion Respiratory: No Symptoms Cardiac: No Symptoms Abdominal/Gastrointestinal: No Symptoms, Abdominal Pain, Nausea, Vomiting Genitourinary Symptoms: No Symptoms Musculoskeletal: No Symptoms Skin: No Symptoms Neurological: No Symptoms Psychological: No Symptoms Endocrine: No Symptoms Hematologic/Lymphatic: No Symptoms Immunological/Allergic: No Symptoms - Past Medical History Pertinent Past Medical History: Yes Neurological History: Other ENT History: Cataracts Cardiac History: Hypertension, Other Respiratory History: Other Endocrine Medical History: No Pertinent History Musculoskeletal History: Fibromyalgia, Fractures, Osteoarthritis GI Medical History: No Pertinent History History: No Pertinent History Psycho-Social History: No Pertinent History Female Reproductive Disorders: No Pertinent History Other Medical History: R JONELLE 2006, blockages below the waist. Pt cant walk very far due to fatigue in legs. Meningitis at age 4 - Past Surgical History Past Surgical History: Yes Neuro Surgical History: No Pertinent History Cardiac: No Pertinent History Respiratory: No Pertinent History Gastrointestinal: No Pertinent History Genitourinary: No Pertinent History Musculoskeletal: Other Female Surgical History: Tubal Ligation, Other Other Surgical History: subcut. shaheen. mastectomy with reconstruction,right hip replacement, kyphoplasty x 2. right arm humurus - Social History Smoking Status: Current every day smoker How long have you smoked: years Exposure to second hand smoke: Yes Drug Use: none Patient Lives Alone: No - Nursing Vital Signs Nursing Vital Signs: Initial Vital Signs Temperature 99.2 F 06/14/23 14:02 Pulse Rate 91 H 06/14/23 14:02 Respiratory Rate 20 06/14/23 14:02 Blood Pressure 147/83 06/14/23 14:02 O2 Sat by Pulse Oximetry 96 06/14/23 14:02 Pain Scale Pain Intensity 0 Mildly hypertensive - Physical Exam General Appearance: no apparent distress (Elderly white female in no apparent distress) Eye Exam: PERRL/EOMI, eyes nml inspection Ears, Nose, Throat Exam: normal ENT inspection, TMs normal, pharynx normal, moist mucous membranes Neck Exam: normal inspection, No meningismus, No Brudzinski, No Kernig's, No carotid bruit Respiratory Exam: normal breath sounds (Lungs clear to auscultation bilaterally) Cardiovascular Exam: regular rate/rhythm (Regular rate and rhythm no heaves gallops murmurs or rubs) Gastrointestinal/Abdomen Exam: soft (Good bowel sounds/soft/mild diffuse tenderness palpation) Back Exam: normal inspection (No T or L-spine tenderness palpation) Extremity Exam: normal inspection, normal range of motion Neurologic Exam: alert, oriented x 3, 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 Gutierrez.) - CT Exams Chest CT Interpretation: Discussed w/radiologist (No acute disease on chest x-ray/COPD productively) Abdomen/Pelvis CT Interpretation: Discussed w/radiologist (No acute findings on CT abdomen pelvis without contrast productively) Ordered Tests: Active Orders 24 hr Category Date Time Status ABDOMEN AND PELVIS W/0 CONTRAS [CT] Stat Exams 06/14/23 16:18 Completed CHEST 1 VIEW (PORTABLE) Stat Exams 06/14/23 14:26 Completed CHEST WITHOUT CONTRAST [CT] Stat Exams 06/14/23 16:18 Completed AMYLASE Stat Lab 06/14/23 14:35 Completed CBC W DIFF Stat Lab 06/14/23 14:35 Completed CMP Stat Lab 06/14/23 14:35 Completed LIPASE Stat Lab 06/14/23 14:35 Completed Lactic Acid Stat Lab 06/14/23 14:25 Completed Lactic Acid Stat Lab 06/14/23 16:45 Received Lactic Acid Stat Lab 06/14/23 17:32 Completed TROPONIN Q4H Lab 06/14/23 14:35 Completed UA W/RFX UR CULTURE Stat Lab 06/14/23 15:14 Completed Medication Summary Discontinued Medications Generic Name Dose Route Start Last Admin Trade Name Freq PRN Reason Stop Dose Admin Sodium Chloride 1,000 mls @ 999 mls/hr 06/14/23 14:25 06/14/23 16:10 Sodium Chloride 0.9% 1000 Ml IV 06/14/23 15:25 Infused .Q1H1M STA Infusion Sodium Chloride Confirm 06/14/23 14:34 Sodium Chloride 0.9% 1000 Ml Administered 06/14/23 14:35 Dose 1,000 mls @ ud .ROUTE .STK-MED ONE Sodium Chloride 1,000 mls @ 999 mls/hr 06/14/23 17:24 06/14/23 18:49 Sodium Chloride 0.9% 1000 Ml IV 06/14/23 18:24 Infused .Q1H1M STA Infusion Sodium Chloride Confirm 06/14/23 17:45 Sodium Chloride 0.9% 1000 Ml Administered 06/14/23 17:46 Dose 1,000 mls @ ud .ROUTE .STK-MED ONE Ondansetron HCl 4 mg 06/14/23 14:25 06/14/23 14:37 Ondansetron Hcl 4 Mg/2 Ml Vial IV 06/14/23 14:26 4 mg STAT ONE Administration Ondansetron HCl Confirm 06/14/23 14:34 Ondansetron Hcl 4 Mg/2 Ml Vial Administered 06/14/23 14:35 Dose 4 mg .ROUTE .STK-MED ONE Lab/Rad Data: Laboratory Result Diagrams 06/14/23 14:35 06/14/23 14:35 Laboratory Results 06/14/23 06/14/23 06/14/23 Range/Units 17:32 15:14 14:40 WBC (4.0-10.5) x10^3/uL RBC (4.1-5.4) x10^6/uL Hgb (12.0-16.0) g/dL Hct (35-47) % MCV (78-100) fL MCH (26-32) pg MCHC (32-36) g/dL RDW (11.5-14.0) % Plt Count (150-450) x10^3/uL MPV (7.5-11.0) fL Gran % (36.0-66.0) % Immature Gran % (Auto) (0.00-0.4) % Nucleat RBC Rel Count (0.00-0.1) % Eos # (Auto) (0-0.5) x10^3/uL Immature Gran # (Auto) (0.00-0.03) x10^3u/L Absolute Lymphs (auto) (1.0-4.6) x10^3/uL Absolute Monos (auto) (0.0-1.3) x10^3/uL Absolute Nucleated RBC (0.00-0.01) x10^3u/L Lymphocytes % (24.0-44.0) % Monocytes % (0.0-12.0) % Eosinophils % (0.00-5.0) % Basophils % (0.0-0.4) % Absolute Granulocytes (1.4-6.9) x10^3/uL Basophils # (0-0.4) x10^3/uL Sodium (137-145) mmol/L Potassium (3.5-5.1) mmol/L Chloride (98-107) mmol/L Carbon Dioxide (22-30) mmol/L Anion Gap (5-15) MEQ/L BUN (7-17) mg/dL Creatinine (0.52-1.04) mg/dL Estimated GFR ML/MIN Glucose (74-106) mg/dL Lactic Acid 1.2 (0.4-2.0) Calcium (8.4-10.2) mg/dL Total Bilirubin (0.2-1.3) mg/dL AST (14-36) U/L ALT (0-35) U/L Alkaline Phosphatase (38-126) U/L Troponin I (0.000-0.034) ng/mL Serum Total Protein (6.3-8.2) g/dL Albumin (3.5-5.0) g/dL Amylase (30-110) U/L Lipase (23-300) U/L Urine Color Yellow (Yellow) Urine Appearance Clear (Clear) Urine pH 6.5 (4.6-8.0) Ur Specific Warren 1.015 (1.005-1.030) Urine Protein Trace A (Negative) Urine Glucose (UA) Negative (Negative) mg/dL Urine Ketones Trace A (Negative) Urine Blood Negative (Negative) Urine Nitrite Negative (Negative) Urine Bilirubin Negative (Negative) Urine Urobilinogen 0.2 (0.2) mg/dL Ur Leukocyte Esterase Trace A (Negative) U Hyaline Cast (Auto) NONE SEEN (0-2) /LPF Urine Microscopic RBC 0-2 (0-5) /HPF Urine Microscopic WBC 0-2 (0-5) /HPF Ur Epithelial Cells Rare (None Seen) /HPF Urine Bacteria None Seen (None Seen) /HPF Urine Culture Reflexed NO (NO) Influenza Type A Ag NEGATIVE (NEGATIVE) Influenza Type B Ag NEGATIVE (NEGATIVE) RSV (PCR) NEGATIVE (NEGATIVE) SARS-CoV-2 (PCR) NEGATIVE (NEGATIVE) Slides for Path Review 06/14/23 06/14/23 06/14/23 Range/Units 14:35 14:35 14:35 WBC 4.8 (4.0-10.5) x10^3/uL RBC 4.70 (4.1-5.4) x10^6/uL Hgb 15.2 (12.0-16.0) g/dL Hct 45.3 (35-47) % MCV 96.4 (78-100) fL MCH 32.3 H (26-32) pg MCHC 33.6 (32-36) g/dL RDW 13.1 (11.5-14.0) % Plt Count 208 (150-450) x10^3/uL MPV 9.2 (7.5-11.0) fL Gran % 92.3 H (36.0-66.0) % Immature Gran % (Auto) 0.0 (0.00-0.4) % Nucleat RBC Rel Count 0.0 (0.00-0.1) % Eos # (Auto) 0 (0-0.5) x10^3/uL Immature Gran # (Auto) 0.00 (0.00-0.03) x10^3u/L Absolute Lymphs (auto) 0.29 L (1.0-4.6) x10^3/uL Absolute Monos (auto) 0.07 (0.0-1.3) x10^3/uL Absolute Nucleated RBC 0.00 (0.00-0.01) x10^3u/L Lymphocytes % 6.0 L (24.0-44.0) % Monocytes % 1.5 (0.0-12.0) % Eosinophils % 0.0 (0.00-5.0) % Basophils % 0.2 (0.0-0.4) % Absolute Granulocytes 4.43 (1.4-6.9) x10^3/uL Basophils # 0.01 (0-0.4) x10^3/uL Sodium 134 L (137-145) mmol/L Potassium 3.5 (3.5-5.1) mmol/L Chloride 95 L (98-107) mmol/L Carbon Dioxide 26 (22-30) mmol/L Anion Gap 15.8 H (5-15) MEQ/L BUN 18 H (7-17) mg/dL Creatinine 0.70 (0.52-1.04) mg/dL Estimated GFR 89.6 ML/MIN Glucose 209 H (74-106) mg/dL Lactic Acid (0.4-2.0) Calcium 9.8 (8.4-10.2) mg/dL Total Bilirubin 1.00 (0.2-1.3) mg/dL AST 32 (14-36) U/L ALT 47 H (0-35) U/L Alkaline Phosphatase 93 (38-126) U/L Troponin I < 0.012 (0.000-0.034) ng/mL Serum Total Protein 7.2 (6.3-8.2) g/dL Albumin 4.2 (3.5-5.0) g/dL Amylase 64 (30-110) U/L Lipase 31 (23-300) U/L Urine Color (Yellow) Urine Appearance (Clear) Urine pH (4.6-8.0) Ur Specific Warren (1.005-1.030) Urine Protein (Negative) Urine Glucose (UA) (Negative) mg/dL Urine Ketones (Negative) Urine Blood (Negative) Urine Nitrite (Negative) Urine Bilirubin (Negative) Urine Urobilinogen (0.2) mg/dL Ur Leukocyte Esterase (Negative) U Hyaline Cast (Auto) (0-2) /LPF Urine Microscopic RBC (0-5) /HPF Urine Microscopic WBC (0-5) /HPF Ur Epithelial Cells (None Seen) /HPF Urine Bacteria (None Seen) /HPF Urine Culture Reflexed (NO) Influenza Type A Ag (NEGATIVE) Influenza Type B Ag (NEGATIVE) RSV (PCR) (NEGATIVE) SARS-CoV-2 (PCR) (NEGATIVE) Slides for Path Review YES 06/14/23 Range/Units 14:25 WBC (4.0-10.5) x10^3/uL RBC (4.1-5.4) x10^6/uL Hgb (12.0-16.0) g/dL Hct (35-47) % MCV (78-100) fL MCH (26-32) pg MCHC (32-36) g/dL RDW (11.5-14.0) % Plt Count (150-450) x10^3/uL MPV (7.5-11.0) fL Gran % (36.0-66.0) % Immature Gran % (Auto) (0.00-0.4) % Nucleat RBC Rel Count (0.00-0.1) % Eos # (Auto) (0-0.5) x10^3/uL Immature Gran # (Auto) (0.00-0.03) x10^3u/L Absolute Lymphs (auto) (1.0-4.6) x10^3/uL Absolute Monos (auto) (0.0-1.3) x10^3/uL Absolute Nucleated RBC (0.00-0.01) x10^3u/L Lymphocytes % (24.0-44.0) % Monocytes % (0.0-12.0) % Eosinophils % (0.00-5.0) % Basophils % (0.0-0.4) % Absolute Granulocytes (1.4-6.9) x10^3/uL Basophils # (0-0.4) x10^3/uL Sodium (137-145) mmol/L Potassium (3.5-5.1) mmol/L Chloride (98-107) mmol/L Carbon Dioxide (22-30) mmol/L Anion Gap (5-15) MEQ/L BUN (7-17) mg/dL Creatinine (0.52-1.04) mg/dL Estimated GFR ML/MIN Glucose (74-106) mg/dL Lactic Acid 4.7 H (0.4-2.0) Calcium (8.4-10.2) mg/dL Total Bilirubin (0.2-1.3) mg/dL AST (14-36) U/L ALT (0-35) U/L Alkaline Phosphatase (38-126) U/L Troponin I (0.000-0.034) ng/mL Serum Total Protein (6.3-8.2) g/dL Albumin (3.5-5.0) g/dL Amylase (30-110) U/L Lipase (23-300) U/L Urine Color (Yellow) Urine Appearance (Clear) Urine pH (4.6-8.0) Ur Specific Warren (1.005-1.030) Urine Protein (Negative) Urine Glucose (UA) (Negative) mg/dL Urine Ketones (Negative) Urine Blood (Negative) Urine Nitrite (Negative) Urine Bilirubin (Negative) Urine Urobilinogen (0.2) mg/dL Ur Leukocyte Esterase (Negative) U Hyaline Cast (Auto) (0-2) /LPF Urine Microscopic RBC (0-5) /HPF Urine Microscopic WBC (0-5) /HPF Ur Epithelial Cells (None Seen) /HPF Urine Bacteria (None Seen) /HPF Urine Culture Reflexed (NO) Influenza Type A Ag (NEGATIVE) Influenza Type B Ag (NEGATIVE) RSV (PCR) (NEGATIVE) SARS-CoV-2 (PCR) (NEGATIVE) Slides for Path Review - Progress Progress: improved Progress Note: 06/14/23 19:11 Nursing note and vital signs reviewed. No food or housing insecurities noted. Additional history per [id number]. All lab results reviewed and shared with patient/family. Chest x-ray result reviewed and shared with patient/family. CT result of chest abdomen pelvis without contrast reviewed and shared with patient/family. Patient received 2 L normal saline IV bolus while in ER. 06/14/23 19:12 Patient received 4 mils IV Zofran with improvement while in ER. Patient most likely has viral etiology of her nausea and vomiting. She has no evidence of a small bowel obstruction. Serial physical exams without evidence of surgical abdomen. Patient much improved with treatment and will be discharged to follow-up with her primary care physician. Patient advised to return to ER for worsening of condition. Patient without chest pain shortness of breath or focal weakness while in the ER. No nausea or vomiting observed while patient was in the ER. Counseled pt/family regarding: lab results, diagnosis, need for follow-up, rad results Medical Desision Making - Independent Historian Additional History obtained from: Family - Diagnostic Testing Diagnostic test were ordered, analyzed, and reviewed by me: Yes Radiological Interpretation: Reviewed by me - Risk of complications The pt has a mod risk of morbidity or mortality based on: Need for prescription drug management - Departure Departure Disposition: Home Clinical Impression: Nausea & vomiting Condition: Stable Critical Care Time: No Referrals: MADHU MOREL NP [Primary Care Provider] - Follow up/PCP as directed Instructions: Nausea and Vomiting, Adult (DC) Additional Instructions: Fluids Rest Zofran for nausea vomiting Follow-up with your family MD on Saturday Return to ER for inability to hold down fluids, temperature greater 100.5, or increased abdominal pain. Prescriptions: Ondansetron ODT 4 MG [Zofran Odt 4 mg] 4 mg PO Q6HPRN PRN #10 tab PRN Reason: Nausea
[2023-06-14 18:33] VITALS: BP 134/65; PULSE 91; RESP 15
[2023-06-14 19:12] VITALS: O2SAT 95
== END 2023-06-14 18:45 | disposition home or self-care (01) ==
LOC: ED 13:40
DX: R11.2 Nausea with vomiting, unspecified (principal); R68.83 Chills (without fever); R53.83 Other fatigue; R10.84 Generalized abdominal pain; I10 Essential (primary) hypertension; Z79.899 Other long term (current) drug therapy; Z72.0 Tobacco use; Z20.828 Contact with and (suspected) exposure to other viral communicable diseases
CPT/HCPCS: 0241U; 36000; 36415; 71045; 71250; 74176; 80053; 81001; 82150; 83605; 83690; 84484; 85025; 96360; 96374; 99284; J2405

== ENCOUNTER 2023-08-14 11:19 | Day surgery (SDC) | payer MEDICARE ==
[2023-08-14] MEDS ORDERED: Depo-Medrol 40 MG/ML IM ONE (11:20)
[2023-08-14] MEDS ORDERED: LIDOCAINE HCL 2% 100 MG/5 ML IJ ONE (11:20)
[2023-08-14] MEDS ORDERED: DIPRIVAN 200 MG/20 ML IV ONE (13:25)
[2023-08-14] MEDS ORDERED: Lactated Ringers 1,000 ML IV ONE (14:11)
--- NOTE | 2023-08-14 14:58 | XRAY ---
Indication: Bilateral L4-S1 MBB Intraoperative fluoroscopy provided for 15 seconds. Single digital spot image submitted for interpretation demonstrates posterior needle tips projecting over the expected left and right L4-S1 nerve roots. Correlate with intraoperative findings/report.
--- NOTE | 2023-08-14 16:56 | XRAY ---
15 seconds of fluoroscopy was used in surgery for a bilateral L4-S1 MBB.
== END 2023-08-14 13:52 | disposition home or self-care (01) ==
LOC: SDC-PAIN 11:19
PROVIDERS: ATTEND Psychiatry & Neurology Pain Medicine
DX: M47.816 Spondylosis without myelopathy or radiculopathy, lumbar region (principal); Z79.899 Other long term (current) drug therapy
CPT/HCPCS: 64493; 64494; 72020; 77002; J1030; J2704

== ENCOUNTER 2023-09-11 07:04 | Day surgery (SDC) | payer MEDICARE ==
[2023-09-11] MEDS ORDERED: BUPIVACAINE 0.5% VIAL IJ ONE (07:05)
[2023-09-11] MEDS ORDERED: Depo-Medrol 40 MG/ML IM ONE (07:05)
[2023-09-11] MEDS ORDERED: DIPRIVAN 200 MG/20 ML IV ONE (08:34)
--- NOTE | 2023-09-11 10:25 | XRAY ---
Indication: Bilateral L4-S1 MBB. Intraoperative fluoroscopy was provided for 15 seconds. Single digital spot image submitted for interpretation demonstrates posterior needle tips projecting over the expected left and right L4-S1 nerve roots. Correlate with intraoperative findings/report.
--- NOTE | 2023-09-11 10:47 | XRAY ---
15 seconds of fluoroscopy was used in surgery for a bilateral L4-S1 MBB.
[2023-09-11] MEDS ORDERED: Lactated Ringers 1,000 ML IV ONE (13:35)
== END 2023-09-11 09:02 | disposition home or self-care (01) ==
LOC: SDC-PAIN 07:04
PROVIDERS: ATTEND Psychiatry & Neurology Pain Medicine
DX: M47.816 Spondylosis without myelopathy or radiculopathy, lumbar region (principal)
CPT/HCPCS: 64493; 64494; 72020; 77002; J1030; J2704

== ENCOUNTER 2023-09-16 08:36 | Day surgery (SDC) | payer MEDICARE ==
--- NOTE | 2023-09-13 14:44 | HP ---
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 Some choking upper esophagus. No prior upper endoscopy per patient. 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 She is in need of upper endoscopy. PAST MEDICAL HISTORY: Chronic obstructive pulmonary disease, arthritis, history of pneumonia, pleuritis, scleroderma, cataracts. CURRENT MEDICATIONS: Magnesium, vitamin C, fish oil, lutein, Anoro Ellipta, meloxicam, atenolol, Lisinopril, gabapentin, amlodipine. ALLERGIES: TETANUS. PAST SURGICAL HISTORY: Had cataract surgery, had mastectomy and implants back in 1986, had a tubal in the past, shoulder surgery, hip replacement, skin cancer excision, and had back surgery in the past. FAMILY HISTORY: As mentioned above included history of thyroid cancer and esophageal cancer. Cousin had esophageal cancer. SOCIAL HISTORY: Smoker, drinks alcohol daily. REVIEW OF SYSTEMS: 12 systems reviewed. Pertinent for multiple medical problems noted above, chronic lung disease, history of scleroderma. Other systems negative or noncontributory other than above and per preadmission questionnaire. PHYSICAL EXAMINATION: Height 5' 4", BMI 16. GENERAL: No acute distress. HEENT: Sclerae nonicteric. EOM intact. NECK: No JVD. CHEST: Equal excursion. Breath sounds symmetrical. CVS: Regular rate and rhythm. ABDOMEN: Soft. EXTREMITIES: No cyanosis. NEURO: Alert, moving extremities symmetrically. PSYCH: Appropriate mood and affect. SKIN: Dry. IMPRESSION: 1. DYSPHAGIA UPPER ESOPHAGUS. NEEDS EGD, POSSIBLE BIOPSY, POSSIBLE DILATATION. Risks were explained to the patient in detail, but not limited to, bleeding; infection; bowel injury or perforation possibly requiring open procedure; possibly if no improvement in swallowing possibly may require other procedures, dilators, or referrals; risk of with the dilator possible neurological/functional problems and dilatation may not benefit particularly given her history of scleroderma, she may have esophageal dysfunction; if dilatation is performed and does improve swallowing, might need it again down the road; all the above, but not limited to; risk of mortality; risk of anesthesia or sedation. Patient agrees to proceed. Will proceed with EGD, possible biopsy, possible dilatation as an outpatient. Otherwise, continue medication for chronic obstructive pulmonary disease, hypertension, and continue her vitamins as listed above.
[2023-09-16 09:13] VITALS: RESP 16; O2SAT 95
[2023-09-16] MEDS ORDERED: Lactated Ringers 1,000 ML IV ONE (09:23)
[2023-09-16] MEDS: Lactated Ringers 1,000 ML IV SCH (09:58)
[2023-09-16] MEDS ORDERED: Xylocaine-Mpf 2% 5 Ml Vial ONE (11:07)
[2023-09-16] MEDS ORDERED: DIPRIVAN 200 MG/20 ML IV ONE (11:07)
[2023-09-16 12:24] VITALS: BP 144/84; PULSE 71; TEMP 97.7
--- NOTE | 2023-09-17 10:09 | OP ---
SURGERY DATE/TIME: 09/16/2023 1113 PREOPERATIVE DIAGNOSIS: History of dysphagia upper esophagus. POSTOPERATIVE DIAGNOSES: 1) Mild erosive gastritis. 2) Proximal esophageal narrowing and spasm. PROCEDURES: 1) EGD with cold biopsy of the antrum to evaluate for Helicobacter pylori. 2) Proximal esophageal balloon dilatation (size 20 balloon dilator). SURGEON: Dr. Wisam Ayala M.D. ANESTHESIA: MAC. FINDINGS: 1) Mild erosive gastritis. 2) Some tertiary contractions of the esophagus with some possible esophageal narrowing and spasm requiring dilatation. 3) The patient had a transient, question of little submucosal fatty density in the duodenum but whether this is part of a fold flopped back or not could not be revisualized for biopsy at this time. The patient would benefit from upper GI study down the road if she has not had one recently. ESTIMATED BLOOD LOSS: Minimal. DESCRIPTION OF PROCEDURE AND FINDINGS: The patient is taken to the endoscopy room. MAC anesthesia induced. After official time out and no disagreement with planned procedure, a bite block positioned. Video gastroscope passed down the oropharynx. There was some proximal esophageal narrowing and spasm where she was complaining of some symptoms. There is no evidence of any mass to biopsy. The scope is passed back down through the patent gastroesophageal junction to the patent pylorus to the junction of the third and fourth portion of the duodenum. Third and fourth portion of duodenum grossly unremarkable. The scope is carefully withdrawn. Just past the duodenal bulb, junction of first and second portion of the duodenum question a little bit of fatty fullness but whether this is part of a fold flopping back out could consider biopsy there but it seems it is not easily visualized after that. I felt the patient would benefit from upper GI down the road. I will see how she is doing when she follows up from dysphagia standpoint but just for completeness whether she could have a duodenal lipoma or this is a normal variation of one of her folds flopped back. Otherwise, scope had been pulled back into the stomach. Some mild erosive gastritis noted. Cold biopsy taken to evaluate for Helicobacter pylori. Good hemostasis noted. On retroflex, she had a slight hiatal weakness but no evidence of any large hiatal hernia. Scope pulled back and gastroesophageal junction was about 38 cm. Z-line was fairly crisp there. Normal distal esophageal mucosa. She did have a few tertiary contractions in the esophagus, just a narrowed area where she was having some symptoms more proximally but no evidence of any significant erosion, no signs of Diaz's in the distal esophagus at this point. Again, it was felt the patient would benefit from dilatation given her symptoms of choking there. The scope is passed back down the stomach, a 20 balloon catheter is carefully inserted and pulled back up to the proximal esophagus carefully inflated first stage 30 seconds, second stage 30 seconds and final stage size 20 balloon dilator for 2 minutes. The balloon was then decompressed. The scope much more easily passed through this area back down in the stomach and carefully withdrawn. Biopsy sites had good hemostasis. There was no evidence of any full thickness issues or injury secondary to dilatation. The scope is withdrawn. The patient tolerated the procedure well. There were no immediate complications. There was no family at the time to discuss the findings with. Should they return and have questions, I could be paged otherwise I will see her back in the office next week.
== END 2023-09-16 12:45 | disposition home or self-care (01) ==
LOC: SDC 08:36
PROVIDERS: ATTEND Surgery
DX: Z87.19 Personal history of other diseases of the digestive system (principal); Z85.810 Personal history of malignant neoplasm of tongue; Z85.01 Personal history of malignant neoplasm of esophagus; K29.70 Gastritis, unspecified, without bleeding; K22.2 Esophageal obstruction
CPT/HCPCS: 99100; C1726; J2704

== ENCOUNTER 2023-11-06 11:06 | Day surgery (SDC) | payer MEDICARE ==
[2023-11-06] MEDS ORDERED: BUPIVACAINE 0.5% VIAL IJ ONE (11:07)
[2023-11-06] MEDS ORDERED: LIDOCAINE HCL 1% 50 MG/5 ML VL PF IJ ONE (11:07)
[2023-11-06] MEDS ORDERED: Depo-Medrol 40 MG/ML IM ONE (11:07)
[2023-11-06] MEDS ORDERED: DIPRIVAN 200 MG/20 ML IV ONE (12:13)
[2023-11-06] MEDS ORDERED: Lactated Ringers 1,000 ML IV ONE (12:26)
--- NOTE | 2023-11-06 13:38 | XRAY ---
Indication: Right L4-S1 RFA. Intraoperative fluoroscopy provided for 20 seconds. 2 digital spot images submitted for interpretation demonstrates posterior needle tip projecting over expected right L4-S1 nerve roots. Correlate with intraoperative findings/report.
--- NOTE | 2023-11-06 14:10 | XRAY ---
20 seconds of fluoroscopy was used in surgery for a right L4-S1 RFA.
== END 2023-11-06 12:51 | disposition home or self-care (01) ==
LOC: SDC-PAIN 11:06
PROVIDERS: ATTEND Psychiatry & Neurology Pain Medicine
DX: M47.816 Spondylosis without myelopathy or radiculopathy, lumbar region (principal)
CPT/HCPCS: 64635; 64636; 72100; 77002; 99100; J1010; J2001; J2704; J1030

== ENCOUNTER 2023-11-14 12:09 | Day surgery (SDC) | payer MEDICARE ==
[2023-11-14] MEDS ORDERED: BUPIVACAINE 0.5% VIAL IJ ONE (12:10)
[2023-11-14] MEDS ORDERED: LIDOCAINE HCL 1% 50 MG/5 ML VL PF IJ ONE (12:10)
[2023-11-14] MEDS ORDERED: Depo-Medrol 40 MG/ML IM ONE (12:10)
[2023-11-14] MEDS ORDERED: DIPRIVAN 200 MG/20 ML IV ONE (13:23)
[2023-11-14] MEDS ORDERED: Lactated Ringers 1,000 ML IV ONE (13:49)
--- NOTE | 2023-11-14 13:49 | XRAY ---
Indication: Left L4-S1 RFA. Intraoperative fluoroscopy provided for 21 seconds. 5 digital spot image submitted for interpretation demonstrates posterior needle tips projecting over the expected left L4-S1 nerve roots. Correlate with intraoperative findings/report.
--- NOTE | 2023-11-14 14:32 | XRAY ---
21 seconds of fluoroscopy was used in surgery for a left L4-S1 RFA.
== END 2023-11-14 13:50 | disposition home or self-care (01) ==
LOC: SDC-PAIN 12:09
PROVIDERS: ATTEND Psychiatry & Neurology Pain Medicine
DX: M47.816 Spondylosis without myelopathy or radiculopathy, lumbar region (principal)
CPT/HCPCS: 64635; 64636; 72100; 77002; 99100; J1010; J2001; J2704; J1030

== ENCOUNTER 2024-08-09 00:54 | Inpatient (IN) | payer MEDICARE, OTHER ==
--- NOTE | 2024-08-09 01:05 | ERPHSYRPT ---
- History of Present Illness Source: patient Exam Limitations: no limitations Physician History: The patient fell because she lost balance. There is no syncope or anything like that. She was turning around and tripped and lost her balance. She is not on blood thinners. She did hit her forehead on the left side as well as her cheek. There is some bruising there. She does not have any cervical spine pain. She does not really have much of a headache. She is more concerned with her knee. It is tender with some effusion already. It is held in a fixed position at about 30 degrees flexed and she said she is unable to straighten it because of pain. When she does that it hurts in her proximal tibia area. Allergies/Adverse Reactions: Tetanus Vaccines and Toxoid [Tetanus Vaccines & Toxoid] Adverse Reaction (Severe, Verified 08/09/24 01:17) Difficulty Swallowing states CAN have toxiod but no other tetanus Sulfa (Sulfonamide Antibiotics) Adverse Reaction (Unknown, Verified 08/09/24 01:17) states was allergic to sulfa at age 4 when had meningitis Home Medications: Melatonin/Pyridoxine [Melatonin 3 mg Tablet] 1 tab PO HSPRN PRN 12/31/14 [History] [place]-3 Fatty Acids/Fish Oil [Fish Oil 1,000 mg Softgel] 3 ea PO DAILY 04/19/15 [History] Lisinopril 10 mg [Zestril 10 MG] 10 mg PO DAILY 12/09/18 [History] atenoloL [Atenolol] 12.5 mg PO DAILY 12/09/18 [History] Amlodipine Besylate [Norvasc] 5 mg PO DAILY 01/08/22 [History] Ascorbic Acid [Vitamin C] 1,000 mg PO DAILY 01/08/22 [History] Cholecalciferol (Vitamin D3) [Vitamin D3] 125 mcg PO DAILY 01/08/22 [History] Cyanocobalamin (Vitamin B-12) [Vitamin B-12] 1,000 mcg PO DAILY 01/08/22 [History] Meloxicam 15 mg [Meloxicam 15 MG] 15 mg PO DAILY 01/08/22 [History] Vit A/Vit C/Vit E/Zinc/Copper [Eye Multivitamin Tablet] 1 each PO DAILY 01/08/22 [History] Zinc Gluconate [Zinc] 20 mg PO DAILY 01/08/22 [History] Calcium Carbonate [Calcium] 600 mg PO DAILY 09/16/23 [History] Loratadine 10 mg PO DAILY 09/16/23 [History] Magnesium 200 mg PO DAILY 09/16/23 [History] Hx Tetanus, Diphtheria Vaccination/Date Given: No Hx Influenza Vaccination/Date Given: Yes Hx Pneumococcal Vaccination/Date Given: Yes - Review of Systems Constitutional: No Symptoms Eyes: No Symptoms Ears, Nose, & Throat: No Symptoms Respiratory: No Symptoms Skin: No Symptoms Neurological: No Symptoms - Past Medical History Pertinent Past Medical History: Yes Neurological History: Other ENT History: Cataracts Cardiac History: Hypertension, Other Respiratory History: Other Endocrine Medical History: No Pertinent History Musculoskeletal History: Fibromyalgia, Fractures, Osteoarthritis GI Medical History: No Pertinent History History: No Pertinent History Psycho-Social History: No Pertinent History Female Reproductive Disorders: No Pertinent History Other Medical History: R JONELLE 2006, blockages below the waist. Pt cant walk very far due to fatigue in legs. Meningitis at age 4 - Past Surgical History Past Surgical History: Yes Neuro Surgical History: No Pertinent History Cardiac: No Pertinent History Respiratory: No Pertinent History Gastrointestinal: No Pertinent History Genitourinary: No Pertinent History Musculoskeletal: Other Female Surgical History: Tubal Ligation, Other Other Surgical History: subcut. shaheen. mastectomy with reconstruction,right hip replacement, kyphoplasty x 2. right arm humurus - Social History Smoking Status: Current every day smoker How long have you smoked: years Exposure to second hand smoke: Yes Drug Use: none Patient Lives Alone: No Physical Exam - Nursing Vital Signs Nursing Vital Signs: Initial Vital Signs Temperature 97.0 F 08/09/24 00:58 Pulse Rate 81 08/09/24 00:58 Respiratory Rate 18 08/09/24 00:58 Blood Pressure 154/76 08/09/24 00:58 O2 Sat by Pulse Oximetry 94 L 08/09/24 00:58 Pain Scale Pain Intensity 8 - [place] Coma Score Best Eye Response (Adrien): (4) open spontaneously Best Verbal Response ([place]): (5) oriented Best Motor Response ([place]): (6) obeys commands [place] Total: 15 - Physical Exam General Appearance: no apparent distress Head Injury: tenderness (LeftMaxillary sinus area. There is also a small contusion on her left forehead. The trauma appear to be pretty minimal.) Eye Exam: bilateral eye: normal inspection, PERRL, EOMI Neck Exam: supple, trachea midline, full range of motion, normal alignment, normal inspection, No focal neuro deficit Respiratory/Chest Exam: chest tenderness, normal breath sounds, No respiratory distress Cardiovascular Exam: normal heart sounds, regular rate/rhythm Gastrointestinal Exam: soft Extremity Exam: other (The right leg is tender in the anterior tibia mainly. There is a small effusion. Examination was difficult due to pain. She is unable to straighten her leg past about 30 or 40 degrees without pain. She said it also feels like it is physically obstructed) Peripheral Pulses: dorsalis-pedis (R): 3+, dorsalis-pedis (L): 3+ Neurologic Exam: alert, oriented x 3, cooperative Skin Exam: normal color, warm Ordered Tests: Active Orders 24 hr Category Date Time Status FACIAL BONES WO CONTRAST [CT] Stat Exams 08/09/24 01:00 Completed HEAD WITHOUT CONTRAST [CT] Stat Exams 08/09/24 01:00 Completed KNEE (3 VIEWS) Stat Exams 08/09/24 01:00 Taken - Progress Progress Note: Her head and face CT was performed as interpreted by me. There is no acute abnormalities noted. Her knee films showed a tibial plateau fracture. I called the Orthopedist Dr. Ndiaye. 08/09/24 02:08 Medical Desision Making - Social Determinants of Health Limited access to: transportation - Diagnostic Testing Diagnostic test were ordered, analyzed, and reviewed by me: Yes Radiological Interpretation: Interpreted by me - Risk of complications Low Risk: Low risk of morbidity from additional dx testing or treatment - Departure Departure Disposition: In-patient Admission Clinical Impression: Tibial plateau fracture, Fall at home Condition: Stable Critical Care Time: No Referrals: MADHU MOREL NP [NON-STAFF PHY W/O PRIVILEGES] - Follow up/PCP as directed
--- NOTE | 2024-08-09 02:01 | XRAY ---
CLINICAL HISTORY: trauma COMPARISON: None. TECHNIQUE: Axial noncontrast CT scan of the brain was performed from the skull base to the high parietal region. One of the following dose reduction techniques was utilized for this exam: Automated exposure control, adjustment of the mA and/or kV according to patient size, use of iterative reconstruction. CT scan performed according to ALARA principles. FINDINGS: hypodensities denoting hypoperfusion with periventricular and subcortical as well as left thalamic and bilateral basal ganglia hypodense foci are noted. The prince-white matter differentiation is preserved. Normal CT appearance of the posterior fossa structures namely the cerebellar hemispheres, brain stem, and cerebellar peduncles. No intracerebral or extra axial hematoma. Prominent ventricular system, cortical sulci, and extra-axial CSF spaces. No midline shifts or deformity. No definite calvarial fractures. The osseous structures in the skull base are unremarkable. The scanned paranasal sinuses show right maxillary mucosal thickening. IMPRESSION: 1. No intra or extra-axial hematomas or parenchymal territorial hypodense areas suggestive of acute ischemic insult. Early changes of stroke may not be detected on a CT scan. If strong clinical suspicion of stroke then suggest MRI with diffusion-weighted imaging. 2. Microvascular ischemic changes with age match mild brain involutional changes. Electronically Signed by: Isabel Sequeira MD. (08/09/2024 01:56:37 EST)
--- NOTE | 2024-08-09 02:03 | XRAY ---
CLINICAL HISTORY: trauma COMPARISON: none TECHNIQUE: Fine slice non-contrast helical CT images were obtained through the maxillofacial bones without contrast injection. Soft tissue and bone windows were reconstructed. One of the following dose reduction techniques were utilized for this exam: Automated exposure control, adjustment of the mA and/or kV according to patient size, use of iterative reconstruction FINDINGS: The nasal bones are intact with no fractures. Bowing of the nasal septum convex to the left side with cortical irregularities/buckling of its anterosuperior aspect showing related mucosal thickening . The scanned paranasal sinuses show intact bony boundaries. Mild mucosal thickening of the maxillary antra, more evident on the right side. Clear ethmoidal air cells, frontal and sphenoid sinuses. Patent osteomeatal unit and both sphenoethmoidal recesses. Prominent inferior nasal turbinates. Normal osseous texture of the mandible with no fractures or destructive osseous lesions. Degenerative changes of the temporomandibular joints. The orbital bony boundaries are intact. The orbits have a normal appearance with unremarkable eye globes and extra-ocular muscles. Clear intra-orbital fat planes. The pterygoid plates and pterygopalatine fossa are normal. The zygomatic arch is normal and there is no diastasis of the frontozygomatic suture. Cervical spondylosis. IMPRESSION: 1. Intact maxillofacial bones and mandible with no fractures. 2. Bowing of the nasal septum convex to the left side with cortical irregularities/buckling of its anterosuperior aspect showing related mucosal thickening that could represent post traumatic sequel. Advise clinical correlation. 3. Mild maxillary sinusitis. Electronically Signed by: Isabel Sequeira MD. (08/09/2024 01:58:55 EST)
--- NOTE | 2024-08-09 02:27 | PCM.HP ---
History of Present Illness - Chief Complaint Chief Complaint: Tibial plateau fracture History of Present Illness: 78 year old female with no major medical issues who had a fall and hit her forehead and left knee, which showed a tibial plateau fracture. Dr. Ndiaye from orthopedic surgery is planning for surgery on Thursday 08/10 so patient is admitted for observation until then. CTH was also done that was unremarkable. Patient reports pain in her knee but otherwise has no other complaints. - Review of Systems Constitutional: No Fever, No Chills Eyes: No Symptoms Ears, Nose, & Throat: No Symptoms Respiratory: No Cough, No Short Of Breath Cardiac: No Chest Pain, No Edema, No Syncope Abdominal/Gastrointestinal: No Abdominal Pain, No Nausea, No Vomiting, No Diarrhea Genitourinary Symptoms: No Dysuria Musculoskeletal: No Back Pain, No Neck Pain Skin: No Rash Neurological: No Dizziness, No Focal Weakness, No Sensory Changes Psychological: No Symptoms Endocrine: No Symptoms Hematologic/Lymphatic: No Symptoms Immunological/Allergic: No Symptoms Medications & Allergies Home Medications: Home Medication List [place]-3 Fatty Acids/Fish Oil [Fish Oil 1,000 mg Softgel] 3 ea PO BID 04/19/15 [History Confirmed 08/09/24] Lisinopril 10 mg [Zestril 10 MG] 10 mg PO HS 12/09/18 [History Confirmed 08/09/24] atenoloL [Atenolol] 25 mg PO HS 12/09/18 [History Confirmed 08/09/24] Amlodipine Besylate [Norvasc] 2.5 mg PO DAILY 01/08/22 [History Confirmed 0 08/09/24] Ascorbic Acid [Vitamin C] 1,000 mg PO DAILY 01/08/22 [History Confirmed 08/09/24] Cholecalciferol (Vitamin D3) [Vitamin D3] 125 mcg PO DAILY 01/08/22 [History Confirmed 08/09/24] Cyanocobalamin (Vitamin B-12) [Vitamin B-12] 1,000 mcg PO DAILY 01/08/22 [History Confirmed 08/09/24] Meloxicam 15 mg [Meloxicam 15 MG] 15 mg PO DAILY 01/08/22 [History Confirmed 08/09/24] Calcium Carbonate [Calcium] 600 mg PO DAILY 09/16/23 [History Confirmed 08/09/24] Magnesium 400 mg PO DAILY 09/16/23 [History Confirmed 08/09/24] [place] 1 tab PO DAILY 08/09/24 [History] Lutein [Natural Lutein] 20 mg PO DAILY 08/09/24 [History Confirmed 08/09/24] Thiamine HCl [Vitamin B-1] 250 mg PO DAILY 08/09/24 [History Confirmed 08/09/24] Turmeric Root Extract [Turmeric Curcumin] 1,500 mg PO BID 08/09/24 [History Confirmed 08/09/24] Umeclidinium Brm/Vilanterol Tr [Anoro Ellipta 62.5-25 Mcg INH] 1 each IH DAILY 08/09/24 [History Confirmed 08/09/24] Zinc Gluconate 50 mg [Zinc Gluconate 50 MG] 50 mg PO DAILY 08/09/24 [History Confirmed 08/09/24] Allergies/Adverse Reactions: Allergies Allergy/AdvReac Type Severity Reaction Status Date / Time Tetanus Vaccines and Toxoid AdvReac Severe Difficulty Verified 08/09/24 01:17 [Tetanus Vaccines & Toxoid] Swallowing Sulfa (Sulfonamide AdvReac Unknown Verified 08/09/24 01:17 Antibiotics) - Past Medical History Past Medical History: Yes Neurological History: Other ENT History: Cataracts Cardiac History: Hypertension, Other Respiratory History: Other Endocrine Medical History: No Pertinent History Musculoskelatal History: Fibromyalgia, Fractures, Osteoarthritis GI Medical History: No Pertinent History History: No Pertinent History Pyscho-Social History: No Pertinent History Reproductive Disorders: No Pertinent History Comment: R JONELLE 2006, blockages below the waist. Pt cant walk very far due to fatigue in legs. Meningitis at age 4 - Past Surgical History Past Surgical History: Yes Neuro Surgical History: No Pertinent History Cardiac History: No Pertinent History Respiratory Surgery: No Pertinent History GI Surgical History: No Pertinent History Genitourinary Surgical Hx: No Pertinent History Musculskeletal Surgical Hx: Other Female Surgical History: Tubal Ligation, Other Other Surgical History: subcut. shaheen. mastectomy with reconstruction,right hip replacement, kyphoplasty x 2. right arm humurus - Social History Smoking Status: Current every day smoker How long have you smoked: years Exposure to second hand smoke: Yes Alcohol: Daily Drug Use: none - Social Determinants of Health Will the patient participate in the screening: Yes Do you worry about a steady place to live?: No Do you have any problems with any of the following?: No known problems In the past 12 months,have you had to go without utilities?: No Have you or anyone in your house had to go without enough: No Transportation Issues: No Has anyone in your support network made you feel unsafe?: No - Physical Exam Vital Signs: Vital Signs - 24 hr Temp Pulse Resp BP BP Pulse Ox 08/09/24 01:03 154/76 94 L 08/09/24 00:58 97.0 F 81 18 154/76 94 L General Appearance: no apparent distress, alert Neurologic Exam: alert, oriented x 3, cooperative, normal mood/affect, nml cerebellar function, nml station & gait, sensation nml, No motor deficits Eye Exam: PERRL/EOMI, eyes nml inspection Ears, Nose, Throat Exam: normal ENT inspection, TMs normal, pharynx normal, moist mucous membranes Neck Exam: normal inspection, non-tender, supple, full range of motion Respiratory Exam: normal breath sounds, lungs clear, No respiratory distress Cardiovascular Exam: regular rate/rhythm, normal heart sounds, normal peripheral pulses Gastrointestinal/Abdomen Exam: soft, normal bowel sounds, No tenderness, No mass Back Exam: normal inspection, normal range of motion, No CVA tenderness, No vertebral tenderness Extremity Exam: normal inspection, normal range of motion, pelvis stable Skin Exam: normal color, warm, dry, No rash Lymphatic Exam: No adenopathy Results - Radiology Impressions Radiology Exams & Impressions: Radiology Procedures Category Date Time Status FACIAL BONES WO CONTRAST [CT] Stat Exams 08/09/24 01:00 Completed HEAD WITHOUT CONTRAST [CT] Stat Exams 08/09/24 01:00 Completed KNEE (3 VIEWS) Stat Exams 08/09/24 01:00 Taken Assessment/Plan (1) Tibial plateau fracture Current Visit: Yes Status: Acute Assessment & Plan: 1. Plan for surgery by orthopedics on Thursday 08/10 2. Pain control with acetaminophen PRN, can give stronger meds if required Code(s): S82.143A - DISPLACED BICONDYLAR FRACTURE OF UNSP TIBIA, INIT Telemedicine Encounter - Telemedicine Encounter Telemedicine Encounter: "The entirety of this encounter was performed via Telemedicine" This visit was performed using real-time audio and video connection between my location and thepatients locationwith the assistance of a surrogateat the patients location. Written or verbal consent was obtained from the patient/guardian to [facility]. Any patient questions regarding the telemedicine interaction were answered.
[2024-08-09] MEDS ORDERED: Hydromorphone 1 mg/ml Injection ONE (03:18)
[2024-08-09] MEDS: Hydromorphone 1 mg/ml Injection IV ONE ×2 (03:19→03:55)
--- NOTE | 2024-08-09 05:31 | XRAY ---
CLINICAL HISTORY: fx COMPARISON: None. TECHNIQUE: Spiral axial continuous cuts were taken through the right lower extremity with multiplanar reformatting and without contrast administration. One of the following dose-reduction techniques was utilized for this exam. Automated exposure control, adjustment of the mA and/or kV according to patient size, and use of iterative reconstruction. CT scan performed according to ALARA principles. FINDINGS: There is ca omminuted fracture and depression of the medial tibial plateau. The depression reaches about 1.5 cm below the tibial plateau. There is associated lipohaemoarthriosis of the knee joint There is a soft tissue hematoma surrounding the knee joint. There is diffuse reduction of osseous mineralization. The distal femur and fibula appear unremarkable. Vascular calcification is noted. IMPRESSION: 1. Comminuted depression fracture of the medial tibial condyle (Schatzker type IV). 2. Lipohemoarthriosis of the knee joint. 3. Periarticular soft tissue hematoma. 4. Reduced osseous mineralization. Electronically Signed by: Isabel Sequeira MD. (08/09/2024 05:28:17 EST)
[2024-08-09 07:25] LABS: Hematocrit 43.4 % (34.1-44.9); Hemoglobin 14.7 g/dL (11.2-15.7); Mean Cell Volume 97.5 fL (79.4-94.8); Mean Corpuscular Hgb Concent. 33.9 g/dL (32.2-35.5); Mean Platelet Volume 9.5 fL (9.4-12.3); Platelet Count 238 x10^3/uL (182-369); Red Blood Count 4.45 x10^6/uL (3.93-5.22); Red Cell Distribution Width 12.8 % (11.7-14.4); White Blood Count 7.2 x10^3/uL (3.98-10.04)
[2024-08-09 07:33] LABS: ALBUMIN 4.1 g/dL (3.5-5.0); ANION GAP 8.9 MEQ/L (5-15); BILIRUBIN,TOTAL 0.3 mg/dL (0.2-1.3); Calcium 9.5 mg/dL (8.4-10.2); Creatinine 1 0.97 mg/dL (0.52-1.04); EST GLOMERULAR FILTRATION RATE 60.2 ML/MIN; Potassium 4.2 mmol/L (3.5-5.1); Total Protein 6.7 g/dL (6.3-8.2)
[2024-08-09] MEDS ORDERED: MEDICATION INTERVENTION MC SCH ×3 (07:45)
--- NOTE | 2024-08-09 07:48 | PCM.CONS ---
History of Present Illness - Consult Date of Consultation Date: 08/09/24 Reason for Consult: Right medial tibial plateau fracture Consulting Provider: ELSA PARRISH MD - [facility] History of Present Illness: is a 78 year old White female who fell at home yesterday sustaining a right medial tibial plateau fracture. No prior problems with the knee. Pain is mild now. Was splinted by the emergency room with long-leg splint. No other injuries. No complaints of numbness or tingling. She does have a previous nailing of her right humerus which was to require a reverse shoulder replacement in [place]. That has been delayed by a skin infection in her elbow which is cleared up. She has had cardiac clearance for that surgery in the last year.She gets around at home with a cane. She lives with her son but he is at work most of the time. She smokes half pack per day.He has COPD. No cardiac disease. No diabetes. She is not on blood thinners.No chest pain fevers or chills. Medications & Allergies Home Medications: Home Medication List [place]-3 Fatty Acids/Fish Oil [Fish Oil 1,000 mg Softgel] 3 ea PO BID 04/19/15 [History Confirmed 08/09/24] Lisinopril 10 mg [Zestril 10 MG] 10 mg PO HS 12/09/18 [History Confirmed 08/09/24] atenoloL [Atenolol] 25 mg PO HS 12/09/18 [History Confirmed 08/09/24] Amlodipine Besylate [Norvasc] 2.5 mg PO DAILY 01/08/22 [History Confirmed 08/09/24] Ascorbic Acid [Vitamin C] 1,000 mg PO DAILY 01/08/22 [History Confirmed 08/09/24] Cholecalciferol (Vitamin D3) [Vitamin D3] 125 mcg PO DAILY 01/08/22 [History Confirmed 08/09/24] Cyanocobalamin (Vitamin B-12) [Vitamin B-12] 1,000 mcg PO DAILY 01/08/22 [History Confirmed 08/09/24] Meloxicam 15 mg [Meloxicam 15 MG] 15 mg PO DAILY 01/08/22 [History Confirmed 08/09/24] Calcium Carbonate [Calcium] 600 mg PO DAILY 09/16/23 [History Confirmed 08/09/24] Magnesium 400 mg PO DAILY 09/16/23 [History Confirmed 08/09/24] Garlique 1 tab PO DAILY 08/09/24 [History] Lutein [Natural Lutein] 20 mg PO DAILY 08/09/24 [History Confirmed 08/09/24] Thiamine HCl [Vitamin B-1] 250 mg PO DAILY 08/09/24 [History Confirmed 08/09/24] Turmeric Root Extract [Turmeric Curcumin] 1,500 mg PO BID 08/09/24 [History Confirmed 08/09/24] Umeclidinium Brm/Vilanterol Tr [Anoro Ellipta 62.5-25 Mcg INH] 1 each IH DAILY 08/09/24 [History Confirmed 08/09/24] Zinc Gluconate 50 mg [Zinc Gluconate 50 MG] 50 mg PO DAILY 08/09/24 [History Confirmed 08/09/24] Allergies/Adverse Reactions: Allergies Allergy/AdvReac Type Severity Reaction Status Date / Time Tetanus Vaccines and Toxoid AdvReac Severe Difficulty Verified 08/09/24 01:17 [Tetanus Vaccines & Toxoid] Swallowing Sulfa (Sulfonamide AdvReac Unknown Verified 08/09/24 01:17 Antibiotics) - Past Medical History Past Medical History: Yes Neurological History: Other ENT History: Cataracts Cardiac History: Hypertension, Other Respiratory History: Other Endocrine Medical History: No Pertinent History Musculoskelatal History: Fibromyalgia, Fractures, Osteoarthritis GI Medical History: No Pertinent History History: No Pertinent History Pyscho-Social History: No Pertinent History Reproductive Disorders: No Pertinent History Comment: R JONELLE 2006, blockages below the waist. Pt cant walk very far due to fatigue in legs. Meningitis at age 4 - Past Surgical History Past Surgical History: Yes Neuro Surgical History: No Pertinent History Cardiac History: No Pertinent History Respiratory Surgery: No Pertinent History GI Surgical History: No Pertinent History Genitourinary Surgical Hx: No Pertinent History Musculskeletal Surgical Hx: Other Female Surgical History: Tubal Ligation, Other Other Surgical History: subcut. shaheen. mastectomy with reconstruction,right hip replacement, kyphoplasty x 2. right arm humurus - Social History Smoking Status: Current every day smoker How long have you smoked: years Exposure to second hand smoke: Yes Alcohol: Daily Drug Use: none - Social Determinants of Health Will the patient participate in the screening: Yes Do you worry about a steady place to live?: No Do you have any problems with any of the following?: No known problems In the past 12 months,have you had to go without utilities?: No Have you or anyone in your house had to go without enough: No Transportation Issues: No Has anyone in your support network made you feel unsafe?: No Does the patient want assistance with any of the above?: No - Nursing Vital Signs Nursing Vital Signs: Vital Signs - 24 hr Temp Pulse Resp BP BP Pulse Ox 08/09/24 04:21 97.5 F 95 H 18 189/85 95 08/09/24 02:30 163/80 95 08/09/24 02:09 154/74 96 08/09/24 01:03 154/76 94 L 08/09/24 00:58 97.0 F 81 18 154/76 94 L - Physical Exam SpO2: 95 - Narrative Narrative Physical Exam: Ortho Physical Exam Pleasant female, no apparent stress, alert and orient x 3, thin Right knee shows mild effusion. Tender with palpation along medial tibial plateau.Did not remove her splint to check skin but she says there is no skin break Nontender distally. 1+ dorsalis pedis pulse 5/5 dorsiflexion plantarflexion Great toe with good sensationDistally X-ray and CT scan of right knee show a medial tibial plateau fracture with 2 cm of depression and varus angulation.The bone is fairly osteopenic Assessment/Plan (1) Right medial tibial plateau fracture Current Visit: Yes Status: Acute Assessment & Plan: Discussed with patient that this will require a open reduction internal fixation of the medial plateau to try to prevent malunion.Patient understands the risk include bleeding, infection, damage to nerves or blood vessels, nonunion, malunion, fracture, possible need for further surgery and the risk of medical or anesthetic complications including the risk of . Patient wishes to proceed with surgery.Due to the snowstorm today, we will delay surgery till tomorrow. She will be n.p.o. after midnight. She will be toe-touch weight-bear for 8 weeks afterwards and could require rehab placement. If she develops a malunion or significant DJD in the future, could require hardware removal in total knee replacement. Code(s): S82.131A - DISP FX OF MEDIAL CONDYLE OF RIGHT TIBIA, INIT FOR CLOS FX Results - Labs Lab/Micro Results: Lab Results-Last 24 Hours 08/09/24 08/09/24 Range/Units 02:34 02:34 WBC 7.2 (3.98-10.04) x10^3/uL RBC 4.45 (3.93-5.22) x10^6/uL Hgb 14.7 (11.2-15.7) g/dL Hct 43.4 (34.1-44.9) % MCV 97.5 H (79.4-94.8) fL MCH 33.0 H (25.6-32.2) pg MCHC 33.9 (32.2-35.5) g/dL RDW 12.8 (11.7-14.4) % Plt Count 238 (182-369) x10^3/uL MPV 9.5 (9.4-12.3) fL Sodium 136 (135-145) mmol/L Potassium 4.2 (3.5-5.1) mmol/L Chloride 102 (98-107) mmol/L Carbon Dioxide 30 (22-30) mmol/L Anion Gap 8.9 (5-15) MEQ/L BUN 25 H (7-17) mg/dL Creatinine 0.97 (0.52-1.04) mg/dL Estimated GFR 60.2 ML/MIN Glucose 110 H (74-106) mg/dL Calcium 9.5 (8.4-10.2) mg/dL Total Bilirubin 0.30 (0.2-1.3) mg/dL AST 40 H (14-36) U/L ALT 17 (0-35) U/L Alkaline Phosphatase 71 (38-126) U/L Serum Total Protein 6.7 (6.3-8.2) g/dL Albumin 4.1 (3.5-5.0) g/dL - Radiology Impressions Radiology Exams & Impressions: Radiology Procedures Category Date Time Status FACIAL BONES WO CONTRAST [CT] Stat Exams 08/09/24 01:00 Completed HEAD WITHOUT CONTRAST [CT] Stat Exams 08/09/24 01:00 Completed KNEE (3 VIEWS) Stat Exams 08/09/24 01:00 Taken LOWER EXTREMITY WO CONTRAST [CT] Urgent Exams 08/09/24 03:24 Completed
--- NOTE | 2024-08-09 09:46 | XRAY ---
Indication: Pain following fall. Comparison: None 3 view right knee demonstrates mildly displaced/depressed comminuted fracture medial tibial plateau with hemarthrosis. Elsewhere osteopenia and moderate scattered vascular calcifications.
[2024-08-09] MEDS ORDERED: NON-FORMULARY ITEM (Calcium Carbonate [Calcium] 500 MG Tablet) PO SCH (10:00)
[2024-08-09] MEDS ORDERED: OMEGA PO SCH (10:00)
[2024-08-09] MEDS ORDERED: NON-FORMULARY ITEM (Meloxicam 15 Mg [Meloxicam 15 Mg] 15 MG Tablet) PO SCH (10:00)
[2024-08-09] MEDS ORDERED: NON-FORMULARY ITEM (Magnesium [Magnesium] 200 MG Tablet) PO SCH (10:00)
[2024-08-09] MEDS ORDERED: ASCORBIC ACID 1000 MG PO SCH (10:00)
[2024-08-09] MEDS ORDERED: FATTY ACIDS PO SCH (10:00)
[2024-08-09] MEDS ORDERED: NON-FORMULARY ITEM (Lutein [Natural Lutein] 20 MG Capsule) PO SCH (10:00)
[2024-08-09] MEDS ORDERED: NON-FORMULARY ITEM (Cholecalciferol (Vitamin D3) [Vitamin D3] 125 MCG Capsule) PO SCH (10:00)
[2024-08-09] MEDS ORDERED: GARLIQUE PO SCH (10:00)
[2024-08-09] MEDS ORDERED: NON-FORMULARY ITEM (Cyanocobalamin (Vitamin B-12) [Vitamin B-12] 1,000 MCG Tablet) PO SCH (10:00)
[2024-08-09] MEDS ORDERED: THIAMINE HCL 250 MG PO SCH (10:00)
[2024-08-09] MEDS ORDERED: MELOXICAM PO SCH (10:00)
[2024-08-09] MEDS ORDERED: TURMERIC ROOT EXTRACT 500 MG PO SCH (10:00)
[2024-08-09] MEDS ORDERED: FISH OIL PO SCH (10:00)
[2024-08-09] MEDS ORDERED: [UNRECOGNIZED DRUG - OTHER] PO SCH (10:00)
[2024-08-09] MEDS: Nicoderm CQ 21 MG TOP SCH (10:37)
[2024-08-09] MEDS: NORCO 7.5/325 MG TAB PO PRN (10:42)
[2024-08-09] MEDS: VITAMIN B-1 100 MG PO SCH (11:45)
[2024-08-09] MEDS: MAG-OX 400 PO SCH (11:45)
[2024-08-09] MEDS: FISH OIL 1,000 MG CAPSULE PO SCH (11:45)
[2024-08-09] MEDS: Ocuvite Tablet PO SCH (11:45)
[2024-08-09] MEDS: Tums EX 750 MG PO SCH (11:45)
[2024-08-09] MEDS: Vitamin C 500 MG PO SCH (11:46)
[2024-08-09] MEDS: Zinc Gluconate 50 MG PO SCH (11:46)
[2024-08-09] MEDS: Vitamin B-12 500 MCG PO SCH (11:46)
[2024-08-09] MEDS: VITAMIN D PO SCH (11:46)
[2024-08-09] MEDS: Hydromorphone 1 mg/ml Injection IV PRN (12:48)
[2024-08-09] MEDS: NORVASC 5 MG PO SCH (12:54)
[2024-08-09] MEDS: TENORMIN 50 MG PO SCH (20:41)
[2024-08-09] MEDS: Zestril 10 MG PO SCH (20:41)
[2024-08-09] MEDS ORDERED: NON-FORMULARY ITEM (Atenolol [Atenolol] 25 MG Tablet) PO SCH (22:00)
[2024-08-09 23:24] LABS: ANION GAP 8.6 MEQ/L (5-15); Calcium 9.2 mg/dL (8.4-10.2); Creatinine 1 0.54 mg/dL (0.52-1.04); EST GLOMERULAR FILTRATION RATE 94.8 ML/MIN
[2024-08-09] MEDS ORDERED: Sodium Chloride 0.9% 100 ML IV ONE (23:59)
[2024-08-10] MEDS: Sodium Chloride 0.9% 1000 ML 1,000 ML IV SCH ×2 (04:13→18:12)
--- NOTE | 2024-08-10 05:07 | PCM.NOTE ---
Date and Time: 08/10/24 9558 Subjective Assessment: Ms. Malave is a 78 year old female with a pmhx of HTN, fibromyalgia, and OA admitted 08/09/24 with a right medial tibial plateau fracture. X-ray and CT scan of right knee show a medial tibial plateau fracture with 2 cm of depression and varus angulation. Ortho has been consulted with plans for an open reduction internal fixation of the medial plateau to try to prevent malunion to be performed 08/10/24. 08/10/24: Patient doing well awaiting surgical intervention today. Pain is controlled. Right leg in splint. Plan for an open reduction internal fixation of the medial plateau to try to prevent malunion. Denies fever,cough, sob, cp, abdominal pain, APODACA, dizziness, N/V/D. - Review of Systems Constitutional: No Symptoms Eyes: No Symptoms Ears, Nose, & Throat: No Symptoms Respiratory: No Symptoms Cardiac: No Symptoms Abdominal/Gastrointestinal: No Symptoms Genitourinary Symptoms: No Symptoms Musculoskeletal: Joint Pain (right LE - in splint) Skin: No Symptoms Neurological: No Symptoms Psychological: No Symptoms Endocrine: No Symptoms Hematologic/Lymphatic: No Symptoms Immunological/Allergic: No Symptoms Objective Exam General Appearance: no apparent distress Neurologic Exam: alert, oriented x 3, cooperative Skin Exam: normal color Eye Exam: PERRL Ears, Nose, Throat Exam: normal ENT inspection Neck Exam: normal inspection Respiratory Exam: normal breath sounds, lungs clear Cardiovascular Exam: regular rate/rhythm, normal heart sounds Gastrointestinal/Abdomen Exam: soft, normal bowel sounds Extremity Exam: limited range of motion (RLE) Back Exam: normal inspection Pelvic Exam: deferred Rectal Exam: deferred Objective Data Vital Signs: Vital Signs - 24 hr Temp Pulse Resp BP BP Pulse Ox 08/10/24 04:00 97.2 F 69 18 153/69 91 L 08/09/24 23:22 97.5 F 80 16 156/67 95 08/09/24 20:41 75 154/70 08/09/24 19:38 97.3 F 75 16 154/70 92 L 08/09/24 15:59 98.1 F 80 16 171/73 94 L 08/09/24 12:00 97.9 F 83 16 158/72 96 08/09/24 07:51 97.8 F 75 16 149/79 98 08/09/24 07:48 95 Pain Assessment - Last Documented Pain Intensity 0 Pain Scale [facility] Intake and Output: Intake & Output 08/07/24 08/08/24 08/09/24 08/10/24 11:59 11:59 11:59 11:59 Intake Total 60 680 Output Total 250 Balance -190 680 Weight 42.4 kg Lab Results: Lab Results-Last 24 Hours 08/09/24 08/09/24 08/09/24 Range/Units 02:34 02:34 23:08 WBC 7.2 (3.98-10.04) x10^3/uL RBC 4.45 (3.93-5.22) x10^6/uL Hgb 14.7 (11.2-15.7) g/dL Hct 43.4 (34.1-44.9) % MCV 97.5 H (79.4-94.8) fL MCH 33.0 H (25.6-32.2) pg MCHC 33.9 (32.2-35.5) g/dL RDW 12.8 (11.7-14.4) % Plt Count 238 (182-369) x10^3/uL MPV 9.5 (9.4-12.3) fL Sodium 136 132 L (135-145) mmol/L Potassium 4.2 4.0 (3.5-5.1) mmol/L Chloride 102 95 L (98-107) mmol/L Carbon Dioxide 30 33 H (22-30) mmol/L Anion Gap 8.9 8.6 (5-15) MEQ/L BUN 25 H 18 H (7-17) mg/dL Creatinine 0.97 0.54 (0.52-1.04) mg/dL Estimated GFR 60.2 94.8 ML/MIN Glucose 110 H 120 H (74-106) mg/dL Calcium 9.5 9.2 (8.4-10.2) mg/dL Total Bilirubin 0.30 (0.2-1.3) mg/dL AST 40 H (14-36) U/L ALT 17 (0-35) U/L Alkaline Phosphatase 71 (38-126) U/L Serum Total Protein 6.7 (6.3-8.2) g/dL Albumin 4.1 (3.5-5.0) g/dL Radiology Exams: Radiology Procedures Category Date Time Status FACIAL BONES WO CONTRAST [CT] Stat Exams 08/09/24 01:00 Completed HEAD WITHOUT CONTRAST [CT] Stat Exams 08/09/24 01:00 Completed KNEE (3 VIEWS) Stat Exams 08/09/24 01:00 Completed LOWER EXTREMITY WO CONTRAST [CT] Urgent Exams 08/09/24 03:24 Completed Assessment/Plan (1) Right medial tibial plateau fracture Current Visit: Yes Status: Acute Assessment & Plan: -Ortho documentation from 08/09/24 reviewed, agree with plan for open reduction internal fixation of the medial plateau to try to prevent malunion to be performed 08/10/24 -XR and CT reviewed showing a medial tibial plateau fracture with 2 cm of depression and varus angulation -Pain control Code(s): S82.131A - DISP FX OF MEDIAL CONDYLE OF RIGHT TIBIA, INIT FOR CLOS FX (2) HTN (hypertension) Current Visit: Yes Status: Acute Assessment & Plan: -Continue home Norvasc and lisinopril Code(s): I10 - ESSENTIAL (PRIMARY) HYPERTENSION (3) Fibromyalgia Current Visit: Yes Status: Acute Assessment & Plan: -noted, continue home regimen (4) Smoker Current Visit: Yes Status: Acute Assessment & Plan: -nicotine patch Code(s): F17.200 - NICOTINE DEPENDENCE, UNSPECIFIED, UNCOMPLICATED (5) Hyponatremia Current Visit: Yes Status: Acute Assessment & Plan: -CMP reviewed with sodium mildly decreased at 132 - continue IVF Code(s): E87.1 - HYPO-OSMOLALITY AND HYPONATREMIA
[2024-08-10 07:47] LABS: Hematocrit 38.7 % (34.1-44.9); Hemoglobin 13.2 g/dL (11.2-15.7); Mean Cell Volume 97.2 fL (79.4-94.8); Mean Corpuscular Hemoglobin 33.2 pg (25.6-32.2); Mean Corpuscular Hgb Concent. 34.1 g/dL (32.2-35.5); Mean Platelet Volume 9.1 fL (9.4-12.3); Platelet Count 199 x10^3/uL (182-369); Red Blood Count 3.98 x10^6/uL (3.93-5.22); Red Cell Distribution Width 12.6 % (11.7-14.4); White Blood Count 8.7 x10^3/uL (3.98-10.04)
[2024-08-10 08:03] LABS: ALBUMIN 4.3 g/dL (3.5-5.0); ANION GAP 9.1 MEQ/L (5-15); BILIRUBIN,TOTAL 1.2 mg/dL (0.2-1.3); Calcium 9.6 mg/dL (8.4-10.2); Creatinine 1 0.56 mg/dL (0.52-1.04); EST GLOMERULAR FILTRATION RATE 93.9 ML/MIN; Potassium 3.9 mmol/L (3.5-5.1); Total Protein 7.2 g/dL (6.3-8.2)
[2024-08-10] MEDS ORDERED: Versed 2 MG/2 ML Injection ONE (10:29)
[2024-08-10] MEDS ORDERED: Lactated Ringers 1,000 ML IV ONE (10:29)
[2024-08-10] MEDS ORDERED: MARCAINE 0.25% PF/ EPI 1:200,000 ONE (10:29)
[2024-08-10] MEDS ORDERED: EXPAREL 133 MG/10 ML VIAL IJ ONE (10:31)
[2024-08-10] MEDS ORDERED: Marcaine Mpf 0.5% Vial 30 Ml ONE (10:32)
[2024-08-10] MEDS ORDERED: Zofran 4 MG/2 ML VIAL ONE (10:37)
[2024-08-10] MEDS ORDERED: propofoL IV ONE (10:37)
[2024-08-10] MEDS ORDERED: TRANEXAMIC 1,000 MG/100ML-NACL 1,000 MG/100 ML PIGGYBACK IV ONE (10:38)
[2024-08-10] MEDS: Lactated Ringers 1,000 ML IV SCH (11:02)
[2024-08-10] MEDS ORDERED: SUBLIMAZE 100 MCG/2 ML ONE ×2 (11:17→12:36)
[2024-08-10] MEDS ORDERED: Ventolin Hfa MDI IH PRN (11:20)
[2024-08-10] MEDS ORDERED: PATIENT OWN MEDICATION IH PRN (11:27)
[2024-08-10] MEDS ORDERED: Ativan 1 MG PO PRN (11:35)
[2024-08-10] MEDS ORDERED: Ativan 2 MG/1 ML VIAL IV PRN (11:35)
--- NOTE | 2024-08-10 13:21 | XRAY ---
Indication: Right tibial plateau ORIF surgery. Intraoperative fluoroscopy provided for 1 minute 44 seconds. 22 digital spot images submitted for interpretation ultimately demonstrates medial fixation plate and multiple transverse screws fixating medial tibial plateau fracture. Correlate with intraoperative findings/report.
[2024-08-10] MEDS: FOLATE 1 MG PO SCH (14:26)
[2024-08-10] MEDS: THERAGRAN MULTIVITAMIN PO SCH (14:26)
[2024-08-10] MEDS ORDERED: PERCOCET TABLET 5/325MG PO PRN (14:44)
[2024-08-10] MEDS ORDERED: MORPHINE SULFATE 2 MG INJ IV PRN (14:44)
[2024-08-10] MEDS ORDERED: Docusate Sodium 100 MG PO PRN (14:44)
[2024-08-10] MEDS ORDERED: Zofran 4 MG/2 ML VIAL IV PRN (14:44)
[2024-08-10] MEDS ORDERED: Sodium Chloride 0.9% 500 ML 500 ML IV SCH (14:45)
--- NOTE | 2024-08-10 16:27 | XRAY ---
1 minute 44 seconds of fluoroscopy used in surgery for a right tibial plateau ORIF surgery.
[2024-08-10] MEDS: CEFAZOLIN 2 GM/100 ML NaCl 2 GM/100 ML IVPB IV SCH ×2 (18:06→20:22)
[2024-08-10] MEDS: NORCO 5/325 MG PO PRN (21:07)
[2024-08-11 04:40] LABS: Absolute Neutrophil Ct (ANC) 5.96 x10^3/uL (1.56-6.13); BASOPHIL % 0.3 % (0.1-1.2); Basophil (Absolute #) 0.02 x10^3/uL (0.01-0.08); Eosinophil % 0.1 % (0.7-5.8); Eosinophil (Absolute #) 0.01 x10^3/uL (0.04-0.36); Hematocrit 31.5 % (34.1-44.9); Hemoglobin 10.6 g/dL (11.2-15.7); IMMATURE GRAN # 0.03 x10^3u/L (0.001-0.031); IMMATURE GRAN % 0.4 % (0.001-0.429); Lymphocyte (Absolute #) 1.07 x10^3/uL (1.18-3.74); Lymphocytes % 13.9 % (19.3-51.7); Mean Cell Volume 97.2 fL (79.4-94.8); Mean Corpuscular Hemoglobin 32.7 pg (25.6-32.2); Mean Corpuscular Hgb Concent. 33.7 g/dL (32.2-35.5); Mean Platelet Volume 9.3 fL (9.4-12.3); Monocyte (Absolute #) 0.61 x10^3/uL (0.24-0.86); Monocytes % 7.9 % (4.7-12.5); Neutrophil % 77.4 % (34.0-71.1); Platelet Count 155 x10^3/uL (182-369); Red Blood Count 3.24 x10^6/uL (3.93-5.22); Red Cell Distribution Width 12.8 % (11.7-14.4); White Blood Count 7.7 x10^3/uL (3.98-10.04)
[2024-08-11 05:14] LABS: ALBUMIN 3.2 g/dL (3.5-5.0); ANION GAP 4.1 MEQ/L (5-15); BILIRUBIN,TOTAL 0.5 mg/dL (0.2-1.3); Calcium 8.5 mg/dL (8.4-10.2); Creatinine 1 0.59 mg/dL (0.52-1.04); EST GLOMERULAR FILTRATION RATE 92.8 ML/MIN; Potassium 3.4 mmol/L (3.5-5.1); Total Protein 5.8 g/dL (6.3-8.2)
--- NOTE | 2024-08-11 05:19 | PCM.NOTE ---
Date and Time: 08/11/24 0516 Subjective Assessment: Ms. Malave is a 78 year old female with a pmhx of HTN, fibromyalgia, and OA admitted 08/09/24 with a right medial tibial plateau fracture. X-ray and CT scan of right knee show a medial tibial plateau fracture with 2 cm of depression and varus angulation. Ortho has been consulted with plans for an open reduction internal fixation of the medial plateau to try to prevent malunion to be performed 08/10/24. 08/10/24: Patient doing well awaiting surgical intervention today. Pain is controlled. Right leg in splint. Plan for an open reduction internal fixation of the medial plateau to try to prevent malunion. Denies fever,cough, sob, cp, abdominal pain, APODACA, dizziness, N/V/D. 08/11/24: No overnight events noted. PODS #1 and patient is doing well. Potassium to be replenished. Ortho following. Patient would like rehab on discharge, CM working on this. Denies fever,cough, sob, cp, abdominal pain, APODACA, dizziness, N/V/D. - Review of Systems Constitutional: No Symptoms Eyes: No Symptoms Ears, Nose, & Throat: No Symptoms Respiratory: No Symptoms Cardiac: No Symptoms Abdominal/Gastrointestinal: No Symptoms Genitourinary Symptoms: No Symptoms Musculoskeletal: Joint Pain Skin: No Symptoms Neurological: No Symptoms Psychological: No Symptoms Endocrine: No Symptoms Hematologic/Lymphatic: No Symptoms Immunological/Allergic: No Symptoms Objective Exam General Appearance: no apparent distress Neurologic Exam: alert, oriented x 3, cooperative Skin Exam: normal color Eye Exam: PERRL Ears, Nose, Throat Exam: normal ENT inspection Neck Exam: normal inspection Respiratory Exam: normal breath sounds, lungs clear Cardiovascular Exam: regular rate/rhythm, normal heart sounds Gastrointestinal/Abdomen Exam: soft, normal bowel sounds Extremity Exam: normal inspection, limited range of motion (due to pain RLE s/p open reduction internal fixation), other Back Exam: normal inspection Pelvic Exam: deferred Rectal Exam: deferred Objective Data Vital Signs: Vital Signs - 24 hr Temp Pulse Resp BP BP Pulse Ox 08/11/24 04:00 97.8 F 75 20 156/80 90 L 08/11/24 00:00 99.3 F 74 18 122/59 91 L 08/10/24 21:07 75 171/73 08/10/24 20:00 98.4 F 75 18 171/73 98 08/10/24 17:31 78 16 98 08/10/24 16:00 97.1 F 72 18 158/91 94 L 08/10/24 15:34 74 16 94 L 08/10/24 10:00 96.9 F 74 18 121/64 93 L 08/10/24 08:00 96.9 F 74 18 121/64 93 L Pain Assessment - Last Documented Pain Intensity 0 Pain Scale Used 0-10 Pain Scale Intake and Output: Intake & Output 08/08/24 08/09/24 08/10/24 08/11/24 11:59 11:59 11:59 11:59 Intake Total 60 748 1765 Output Total 250 900 575 Balance -190 -152 1190 Weight 42.4 kg 42.4 kg Lab Results: Lab Results-Last 24 Hours 08/10/24 08/10/24 08/11/24 Range/Units 07:30 07:30 04:15 WBC 8.7 7.7 (3.98-10.04) x10^3/uL RBC 3.98 3.24 L (3.93-5.22) x10^6/uL Hgb 13.2 10.6 L (11.2-15.7) g/dL Hct 38.7 31.5 L (34.1-44.9) % MCV 97.2 H 97.2 H (79.4-94.8) fL MCH 33.2 H 32.7 H (25.6-32.2) pg MCHC 34.1 33.7 (32.2-35.5) g/dL RDW 12.6 12.8 (11.7-14.4) % Plt Count 199 155 L (182-369) x10^3/uL MPV 9.1 L 9.3 L (9.4-12.3) fL Gran % 77.4 H (34.0-71.1) % Immature Gran % (Auto) 0.4 (0.001-0.429) % Nucleat RBC Rel Count 0.0 (0.00-0.2) % Eos # (Auto) 0.01 L (0.04-0.36) x10^3/uL Immature Gran # (Auto) 0.03 (0.001-0.031) x10^3u/L Absolute Lymphs (auto) 1.07 L (1.18-3.74) x10^3/uL Absolute Monos (auto) 0.61 (0.24-0.86) x10^3/uL Absolute Nucleated RBC 0.00 (0.00-0.012) x10^3u/L Lymphocytes % 13.9 L (19.3-51.7) % Monocytes % 7.9 (4.7-12.5) % Eosinophils % 0.1 L (0.7-5.8) % Basophils % 0.3 (0.1-1.2) % Absolute Granulocytes 5.96 (1.56-6.13) x10^3/uL Basophils # 0.02 (0.01-0.08) x10^3/uL Sodium 132 L (135-145) mmol/L Potassium 3.9 (3.5-5.1) mmol/L Chloride 97 L (98-107) mmol/L Carbon Dioxide 30 (22-30) mmol/L Anion Gap 9.1 (5-15) MEQ/L BUN 15 (7-17) mg/dL Creatinine 0.56 (0.52-1.04) mg/dL Estimated GFR 93.9 ML/MIN Glucose 109 H (74-106) mg/dL Calcium 9.6 (8.4-10.2) mg/dL Total Bilirubin 1.20 (0.2-1.3) mg/dL AST 39 H (14-36) U/L ALT 19 (0-35) U/L Alkaline Phosphatase 61 (38-126) U/L Serum Total Protein 7.2 (6.3-8.2) g/dL Albumin 4.3 (3.5-5.0) g/dL 08/11/24 Range/Units 04:15 WBC (3.98-10.04) x10^3/uL RBC (3.93-5.22) x10^6/uL Hgb (11.2-15.7) g/dL Hct (34.1-44.9) % MCV (79.4-94.8) fL MCH (25.6-32.2) pg MCHC (32.2-35.5) g/dL RDW (11.7-14.4) % Plt Count (182-369) x10^3/uL MPV (9.4-12.3) fL Gran % (34.0-71.1) % Immature Gran % (Auto) (0.001-0.429) % Nucleat RBC Rel Count (0.00-0.2) % Eos # (Auto) (0.04-0.36) x10^3/uL Immature Gran # (Auto) (0.001-0.031) x10^3u/L Absolute Lymphs (auto) (1.18-3.74) x10^3/uL Absolute Monos (auto) (0.24-0.86) x10^3/uL Absolute Nucleated RBC (0.00-0.012) x10^3u/L Lymphocytes % (19.3-51.7) % Monocytes % (4.7-12.5) % Eosinophils % (0.7-5.8) % Basophils % (0.1-1.2) % Absolute Granulocytes (1.56-6.13) x10^3/uL Basophils # (0.01-0.08) x10^3/uL Sodium 133 L (135-145) mmol/L Potassium 3.4 L (3.5-5.1) mmol/L Chloride 102 (98-107) mmol/L Carbon Dioxide 30 (22-30) mmol/L Anion Gap 4.1 L (5-15) MEQ/L BUN 12 (7-17) mg/dL Creatinine 0.59 (0.52-1.04) mg/dL Estimated GFR 92.8 ML/MIN Glucose 105 (74-106) mg/dL Calcium 8.5 (8.4-10.2) mg/dL Total Bilirubin 0.50 (0.2-1.3) mg/dL AST 28 (14-36) U/L ALT 13 (0-35) U/L Alkaline Phosphatase 56 (38-126) U/L Serum Total Protein 5.8 L (6.3-8.2) g/dL Albumin 3.2 L (3.5-5.0) g/dL Radiology Exams: Radiology Procedures Category Date Time Status FLUOROSCOPY UP TO 1 HR Routine Exams 08/10/24 07:09 Completed LOWER LEG Routine Exams 08/10/24 07:09 Completed Multi-Disciplinary Progress Notes: Multi-Disciplinary Progress Notes 08/10/24 19:00 Respiratory Note by Leanna Tineo Pt is doing well with IS and using it on her own. Initialized on 08/10/24 19:00 - END OF NOTE Assessment/Plan (1) Right medial tibial plateau fracture Current Visit: Yes Status: Acute Assessment & Plan: -Ortho documentation from 08/09/24 reviewed, agree with plan for open reduction internal fixation of the medial plateau to try to prevent malunion to be performed 08/10/24 -XR and CT reviewed showing a medial tibial plateau fracture with 2 cm of depression and varus angulation -Pain control 08/11/24: -Ortho following - NWB -PT eval and continue while IP -ASA 325mg -pain controlled -SNF pending Code(s): S82.131A - DISP FX OF MEDIAL CONDYLE OF RIGHT TIBIA, INIT FOR CLOS FX (2) HTN (hypertension) Current Visit: Yes Status: Acute Assessment & Plan: -Continue home Norvasc and lisinopril Code(s): I10 - ESSENTIAL (PRIMARY) HYPERTENSION (3) Fibromyalgia Current Visit: Yes Status: Acute Assessment & Plan: -noted, continue home regimen (4) Smoker Current Visit: Yes Status: Acute Assessment & Plan: -nicotine patch Code(s): F17.200 - NICOTINE DEPENDENCE, UNSPECIFIED, UNCOMPLICATED (5) Hyponatremia Current Visit: Yes Status: Acute Assessment & Plan: -CMP reviewed with sodium mildly decreased at 132 - continue IVF 08/11/24 -Sodium level reviewed at 133 - improving Alcohol abuse -[facility] protocol Hypokalemia -potassium level reviewed at 3.4 will replenish per protocol -mag level WNL Code(s): E87.1 - HYPO-OSMOLALITY AND HYPONATREMIA Code(s): S82.131A - DISP FX OF MEDIAL CONDYLE OF RIGHT TIBIA, INIT FOR CLOS FX (2) HTN (hypertension) Current Visit: Yes Status: Acute Code(s): I10 - ESSENTIAL (PRIMARY) HYPERTENSION (3) Fibromyalgia Current Visit: Yes Status: Acute (4) Smoker Current Visit: Yes Status: Acute Code(s): F17.200 - NICOTINE DEPENDENCE, UNSPECIFIED, UNCOMPLICATED (5) Hyponatremia Current Visit: Yes Status: Acute Code(s): E87.1 - HYPO-OSMOLALITY AND HYPONATREMIA (6) Hypokalemia Current Visit: Yes Status: Acute Code(s): E87.6 - HYPOKALEMIA
[2024-08-11] MEDS: PATIENT OWN MEDICATION IH SCH (07:08)
[2024-08-11] MEDS: Klor Con PO SCH ×3 (08:02→18:01)
[2024-08-11] MEDS: Ecotrin 325 MG PO SCH (08:10)
--- NOTE | 2024-08-11 13:52 | OP ---
SURGERY DATE/TIME: 08/10/2024 [id number] DIAGNOSIS: Right medial tibial plateau fracture. PROCEDURE: Open reduction and internal fixation of right medial tibial plateau fracture. SURGEON: Michael Ndiaye MD ANESTHESIA: General, plus femoral nerve block. FINDINGS: Comminuted medial tibial plateau fracture with about 2 cm of depression and a very osteopenic bone and paper-thin skin. ESTIMATED BLOOD LOSS: 100 mL. FLUIDS: Per the anesthesia records. SPECIMENS: None. DRAINS: None. COMPLICATIONS: None. IMPLANTS: Savanna titanium medial distal tibial short plate with 4 locking screws and 2 nonlocking screws, and there were 2 Savanna partially threaded 4 mm screws with 1 washer. INDICATIONS: Patient is a 78-year-old white female who fell and sustained above-mentioned fracture 2 days ago. It was indicated to reduce and stabilize this to prevent a malunion. DESCRIPTION OF PROCEDURE AND FINDINGS: Patient was seen in the holding room. We identified the right knee as correct. This was initialed by me. She had 2 g of Kefzol and 1000 mg tranexamic acid. She had a nerve block and then had general anesthesia supine on a radiolucent table. She had her right lower extremity on a bone foam ramp and had sterile prepping and draping of the right lower extremity. A time-out was performed by me. The tourniquet was inflated around the upper thigh to 250 mmHg. The total tourniquet time was approximately an hour and a half. A medial incision was made from slightly posterior to the MCL going to the medial tibial shaft about 9 cm in length. The medial saphenous nerve was identified and protected. The hamstring tendons were identified and freed and retracted anteriorly. The Bovie was used to incise along the posteromedial border of the tibial shaft going proximally, staying posterior to the MCL. The fracture site was identified and cleaned out. A bone tamp was then used to elevate the articular surface to get back to neutral varus. When this was verified to be in good position with a pin in place with a subarticular 2 mm K-wire, then 30 mL of cancellous bone chips were packed into the defect which was very osteopenic. The fracture was then reduced and clamped, and then additional K-wire placed to hold this in place. The Savanna distal tibial anterolateral plate was tried but did not fit well enough. Therefore, the anteromedial narrow titanium plate from Savanna for distal tibias was applied, and this fit fairly well though it did stick up slightly anteriorly but due to the thickness of the plate could not be bent completely. The plate was anchored with a K-wire and verified to be in good position. It should be mentioned that before the plate was applied that two 4 mm Savanna cannulated screws were placed from anterior along the medial plateau just subarticular with one of them having a washer to give distal support to the subarticular surface and to help hold the reduction of the fracture. The plate was then anchored distally with 2 nonlocking screws, and then an additional nonlocking screw was placed proximally but did not get very good bite due to osteopenia. Three locking screws were then placed through the plate about 1 cm distal to the articular surface, and then additional locking screw was placed through the most distal hole. Final C-arm views showed good reduction and screw length. The knee was tested for varus and valgus stability which seemed fairly good. The tourniquet was released. The locking screws were torqued with a torque wrench. All K-wires were removed. The wounds were thoroughly irrigated, and then the subcutaneous tissue was closed with 2-0 Vicryl and the skin with radha. There were several skin tears which were treated with Tegaderm dressings. Then, a sterile dressing was applied, and the patient was placed in a 20-inch knee immobilizer. Plan is for patient to be 0 to 30 degrees range of motion for the first month and otherwise be in the knee immobilizer. She may remove dressing and shower after 5 days. She will need to go to rehab. She will have aspirin for DVT prophylaxis. Staple removal in 10 to 12 days with repeat x-ray then. We will plan on starting 50% weightbearing after 8 weeks.
[2024-08-12 00:09] VITALS: RESP 16
[2024-08-12 05:09] LABS: BASOPHIL % 0.3 % (0.1-1.2); Basophil (Absolute #) 0.02 x10^3/uL (0.01-0.08); Eosinophil % 0.6 % (0.7-5.8); Eosinophil (Absolute #) 0.04 x10^3/uL (0.04-0.36); Hematocrit 32.2 % (34.1-44.9); IMMATURE GRAN # 0.01 x10^3u/L (0.001-0.031); IMMATURE GRAN % 0.2 % (0.001-0.429); Lymphocyte (Absolute #) 0.83 x10^3/uL (1.18-3.74); Lymphocytes % 13.4 % (19.3-51.7); Mean Cell Volume 97.6 fL (79.4-94.8); Mean Corpuscular Hemoglobin 33.3 pg (25.6-32.2); Mean Corpuscular Hgb Concent. 34.2 g/dL (32.2-35.5); Mean Platelet Volume 9.3 fL (9.4-12.3); Monocyte (Absolute #) 0.49 x10^3/uL (0.24-0.86); Monocytes % 7.9 % (4.7-12.5); Neutrophil % 77.6 % (34.0-71.1); Platelet Count 174 x10^3/uL (182-369); Red Cell Distribution Width 12.6 % (11.7-14.4); White Blood Count 6.2 x10^3/uL (3.98-10.04)
--- NOTE | 2024-08-12 05:13 | PCM.NOTE ---
Date and Time: 08/12/24 0512 Subjective Assessment: Ms. Malave is a 78 year old female with a pmhx of HTN, fibromyalgia, and OA admitted 08/09/24 with a right medial tibial plateau fracture. X-ray and CT scan of right knee show a medial tibial plateau fracture with 2 cm of depression and varus angulation. Ortho has been consulted with plans for an open reduction internal fixation of the medial plateau to try to prevent malunion to be performed 08/10/24. 08/10/24: Patient doing well awaiting surgical intervention today. Pain is controlled. Right leg in splint. Plan for an open reduction internal fixation of the medial plateau to try to prevent malunion. Denies fever,cough, sob, cp, abdominal pain, APODACA, dizziness, N/V/D. 08/11/24: No overnight events noted. PODS #1 and patient is doing well. Potassium to be replenished. Ortho following. Patient would like rehab on discharge, CM working on this. Denies fever,cough, sob, cp, abdominal pain, APODACA, dizziness, N/V/D. Objective Data Vital Signs: Vital Signs - 24 hr Temp Pulse Resp BP BP Pulse Ox 08/12/24 03:59 97.5 F 76 16 158/69 93 L 08/12/24 00:00 97.5 F 70 16 152/67 93 L 08/11/24 21:34 78 150/66 08/11/24 19:55 97.5 F 78 15 150/66 95 08/11/24 17:09 82 18 97 08/11/24 16:00 97.8 F 71 16 127/69 92 L 08/11/24 11:37 98.1 F 73 16 141/63 97 08/11/24 10:33 98 08/11/24 07:40 78 16 97 08/11/24 07:36 97.7 F 78 16 149/75 97 Pain Assessment - Last Documented Pain Intensity 0 Pain Scale Used 0-10 Pain Scale Intake and Output: Intake & Output 08/09/24 08/10/24 08/11/24 08/12/24 11:59 11:59 11:59 11:59 Intake Total 60 748 2245 1000 Output Total 590 236 4799 850 Balance -190 -152 1170 150 Weight 42.4 kg 42.4 kg Lab Results: Lab Results-Last 24 Hours 08/11/24 08/11/24 08/11/24 Range/Units 04:15 04:50 11:10 Sodium 133 L (135-145) mmol/L Potassium 3.4 L 3.3 L (3.5-5.1) mmol/L Chloride 102 (98-107) mmol/L Carbon Dioxide 30 (22-30) mmol/L Anion Gap 4.1 L (5-15) MEQ/L BUN 12 (7-17) mg/dL Creatinine 0.59 (0.52-1.04) mg/dL Estimated GFR 92.8 ML/MIN Glucose 105 (74-106) mg/dL Calcium 8.5 (8.4-10.2) mg/dL Magnesium 1.8 (1.6-2.3) mg/dL Total Bilirubin 0.50 (0.2-1.3) mg/dL AST 28 (14-36) U/L ALT 13 (0-35) U/L Alkaline Phosphatase 56 (38-126) U/L Serum Total Protein 5.8 L (6.3-8.2) g/dL Albumin 3.2 L (3.5-5.0) g/dL 08/11/24 Range/Units 18:42 Sodium (135-145) mmol/L Potassium 4.0 D (3.5-5.1) mmol/L Chloride (98-107) mmol/L Carbon Dioxide (22-30) mmol/L Anion Gap (5-15) MEQ/L BUN (7-17) mg/dL Creatinine (0.52-1.04) mg/dL Estimated GFR ML/MIN Glucose (74-106) mg/dL Calcium (8.4-10.2) mg/dL Magnesium (1.6-2.3) mg/dL Total Bilirubin (0.2-1.3) mg/dL AST (14-36) U/L ALT (0-35) U/L Alkaline Phosphatase (38-126) U/L Serum Total Protein (6.3-8.2) g/dL Albumin (3.5-5.0) g/dL Radiology Exams: Radiology Procedures Category Date Time Status FLUOROSCOPY UP TO 1 HR Routine Exams 08/10/24 07:09 Completed LOWER LEG Routine Exams 08/10/24 07:09 Completed Multi-Disciplinary Progress Notes: Multi-Disciplinary Progress Notes 08/11/24 13:34 Case Management Note by Marie Saenz AND COOPER COMPLETE AND APPROVED, NO LEVEL II REQUIRED. FULL REFERRAL FAXED TO [facility] AND [facility] FAXED WELL AND PLACED ON CHART Initialized on 08/11/24 13:34 - END OF NOTE Assessment/Plan (1) Right medial tibial plateau fracture Current Visit: Yes Status: Acute Assessment & Plan: -Ortho documentation from 08/09/24 reviewed, agree with plan for open reduction internal fixation of the medial plateau to try to prevent malunion to be performed 08/10/24 -XR and CT reviewed showing a medial tibial plateau fracture with 2 cm of depression and varus angulation -Pain control 08/11/24: -Ortho following - [facility] -PT eval and continue while IP -ASA 325mg -pain controlled -SNF pending Code(s): S82.131A - DISP FX OF MEDIAL CONDYLE OF RIGHT TIBIA, INIT FOR CLOS FX (2) HTN (hypertension) Current Visit: Yes Status: Acute Assessment & Plan: -Continue home Norvasc and lisinopril Code(s): I10 - ESSENTIAL (PRIMARY) HYPERTENSION (3) Fibromyalgia Current Visit: Yes Status: Acute Assessment & Plan: -noted, continue home regimen (4) Smoker Current Visit: Yes Status: Acute Assessment & Plan: -nicotine patch Code(s): F17.200 - NICOTINE DEPENDENCE, UNSPECIFIED, UNCOMPLICATED (5) Hyponatremia Current Visit: Yes Status: Acute Assessment & Plan: -CMP reviewed with sodium mildly decreased at 132 - continue IVF 08/11/24 -Sodium level reviewed at 133 - improving Alcohol abuse -[facility] protocol Hypokalemia -potassium level reviewed at 3.4 will replenish per protocol -mag level WNL Code(s): E87.1 - HYPO-OSMOLALITY AND HYPONATREMIA Code(s): S82.131A - DISP FX OF MEDIAL CONDYLE OF RIGHT TIBIA, INIT FOR CLOS FX (2) HTN (hypertension) Current Visit: Yes Status: Acute Code(s): I10 - ESSENTIAL (PRIMARY) HYPERTENSION (3) Fibromyalgia Current Visit: Yes Status: Acute (4) Smoker Current Visit: Yes Status: Acute Code(s): F17.200 - NICOTINE DEPENDENCE, UNSPECIFIED, UNCOMPLICATED (5) Hyponatremia Current Visit: Yes Status: Acute Code(s): E87.1 - HYPO-OSMOLALITY AND HYPONATREMIA (6) Hypokalemia Current Visit: Yes Status: Acute Code(s): E87.6 - HYPOKALEMIA
[2024-08-12 05:27] LABS: ALBUMIN 3.2 g/dL (3.5-5.0); ANION GAP 3.6 MEQ/L (5-15); BILIRUBIN,TOTAL 0.7 mg/dL (0.2-1.3); Calcium 9.2 mg/dL (8.4-10.2); Creatinine 1 0.53 mg/dL (0.52-1.04); EST GLOMERULAR FILTRATION RATE 95.2 ML/MIN; MAGNESIUM 1.8 mg/dL (1.6-2.3); Total Protein 6.1 g/dL (6.3-8.2)
--- NOTE | 2024-08-12 08:14 | PCM.NOTE ---
Date and Time: 08/12/24 0811 Postop day 2 from [facility] of right medial tibial plateau fracture. Pain is moderate. Only taking Neon.Got up to chair with physical therapy yesterday. Has not done range of motion yet.Patient says she is excepted for rehab placement on Objective Exam Comments: 08/12/24 08:12 Alert and orient x 3 Right knee immobilizer in place. Moderate edema in foot. 5/5 dorsiflexion plantarflexion great toe with good sensation Objective Data Vital Signs: Vital Signs - 24 hr Temp Pulse Resp BP BP Pulse Ox 08/12/24 03:59 97.5 F 76 16 158/69 93 L 08/12/24 00:00 97.5 F 70 16 152/67 93 L 08/11/24 21:34 78 150/66 08/11/24 19:55 97.5 F 78 15 150/66 95 08/11/24 17:09 82 18 97 08/11/24 16:00 97.8 F 71 16 127/69 92 L 08/11/24 11:37 98.1 F 73 16 141/63 97 08/11/24 10:33 98 Pain Assessment - Last Documented Pain Intensity 5 Pain Scale Used 0-10 Pain Scale Intake and Output: Intake & Output 08/09/24 08/10/24 08/11/24 08/12/24 11:59 11:59 11:59 11:59 Intake Total 60 748 2245 1000 Output Total 759 662 4845 850 Balance -190 -152 1170 150 Weight 42.4 kg 42.4 kg Lab Results: Lab Results-Last 24 Hours 08/11/24 08/11/24 08/12/24 Range/Units 11:10 18:42 04:50 WBC 6.2 (3.98-10.04) x10^3/uL RBC 3.30 L (3.93-5.22) x10^6/uL Hgb 11.0 L (11.2-15.7) g/dL Hct 32.2 L (34.1-44.9) % MCV 97.6 H (79.4-94.8) fL MCH 33.3 H (25.6-32.2) pg MCHC 34.2 (32.2-35.5) g/dL RDW 12.6 (11.7-14.4) % Plt Count 174 L (182-369) x10^3/uL MPV 9.3 L (9.4-12.3) fL Gran % 77.6 H (34.0-71.1) % Immature Gran % (Auto) 0.2 (0.001-0.429) % Nucleat RBC Rel Count 0.0 (0.00-0.2) % Eos # (Auto) 0.04 (0.04-0.36) x10^3/uL Immature Gran # (Auto) 0.01 (0.001-0.031) x10^3u/L Absolute Lymphs (auto) 0.83 L (1.18-3.74) x10^3/uL Absolute Monos (auto) 0.49 (0.24-0.86) x10^3/uL Absolute Nucleated RBC 0.00 (0.00-0.012) x10^3u/L Lymphocytes % 13.4 L (19.3-51.7) % Monocytes % 7.9 (4.7-12.5) % Eosinophils % 0.6 L (0.7-5.8) % Basophils % 0.3 (0.1-1.2) % Absolute Granulocytes 4.80 (1.56-6.13) x10^3/uL Basophils # 0.02 (0.01-0.08) x10^3/uL Sodium (135-145) mmol/L Potassium 3.3 L 4.0 D (3.5-5.1) mmol/L Chloride (98-107) mmol/L Carbon Dioxide (22-30) mmol/L Anion Gap (5-15) MEQ/L BUN (7-17) mg/dL Creatinine (0.52-1.04) mg/dL Estimated GFR ML/MIN Glucose (74-106) mg/dL Calcium (8.4-10.2) mg/dL Magnesium (1.6-2.3) mg/dL Total Bilirubin (0.2-1.3) mg/dL AST (14-36) U/L ALT (0-35) U/L Alkaline Phosphatase (38-126) U/L Serum Total Protein (6.3-8.2) g/dL Albumin (3.5-5.0) g/dL 08/12/24 Range/Units 04:50 WBC (3.98-10.04) x10^3/uL RBC (3.93-5.22) x10^6/uL Hgb (11.2-15.7) g/dL Hct (34.1-44.9) % MCV (79.4-94.8) fL MCH (25.6-32.2) pg MCHC (32.2-35.5) g/dL RDW (11.7-14.4) % Plt Count (182-369) x10^3/uL MPV (9.4-12.3) fL Gran % (34.0-71.1) % Immature Gran % (Auto) (0.001-0.429) % Nucleat RBC Rel Count (0.00-0.2) % Eos # (Auto) (0.04-0.36) x10^3/uL Immature Gran # (Auto) (0.001-0.031) x10^3u/L Absolute Lymphs (auto) (1.18-3.74) x10^3/uL Absolute Monos (auto) (0.24-0.86) x10^3/uL Absolute Nucleated RBC (0.00-0.012) x10^3u/L Lymphocytes % (19.3-51.7) % Monocytes % (4.7-12.5) % Eosinophils % (0.7-5.8) % Basophils % (0.1-1.2) % Absolute Granulocytes (1.56-6.13) x10^3/uL Basophils # (0.01-0.08) x10^3/uL Sodium 133 L (135-145) mmol/L Potassium 4.0 (3.5-5.1) mmol/L Chloride 102 (98-107) mmol/L Carbon Dioxide 31 H (22-30) mmol/L Anion Gap 3.6 L (5-15) MEQ/L BUN 13 (7-17) mg/dL Creatinine 0.53 (0.52-1.04) mg/dL Estimated GFR 95.2 ML/MIN Glucose 115 H (74-106) mg/dL Calcium 9.2 (8.4-10.2) mg/dL Magnesium 1.8 (1.6-2.3) mg/dL Total Bilirubin 0.70 (0.2-1.3) mg/dL AST 35 (14-36) U/L ALT 15 (0-35) U/L Alkaline Phosphatase 68 (38-126) U/L Serum Total Protein 6.1 L (6.3-8.2) g/dL Albumin 3.2 L (3.5-5.0) g/dL Multi-Disciplinary Progress Notes: Multi-Disciplinary Progress Notes 08/11/24 13:34 Case Management Note by Marie Saenz AND COOPER COMPLETE AND APPROVED, NO LEVEL II REQUIRED. FULL REFERRAL FAXED TO [facility] FAXED WELL AND PLACED ON CHART Initialized on 08/11/24 13:34 - END OF NOTE Assessment/Plan (1) Right medial tibial plateau fracture Current Visit: Yes Status: Acute Assessment & Plan: Doing well with right tibial plateau fracture Plan: Physical therapy may remove knee immobilizer for 0 to 30 degrees range of motion of knee.Otherwise keep knee immobilizer on. Toe-touch weight-bear for 8 weeks then 50% weight-bear for 4 weeks after that Return to clinic 10 to 12 days postop for staple removal and x-ray Return to see me in early September Code(s): S82.131A - DISP FX OF MEDIAL CONDYLE OF RIGHT TIBIA, INIT FOR CLOS FX
[2024-08-12 11:38] VITALS: BP 139/67; PULSE 74; TEMP 97.6; O2SAT 96
--- NOTE | 2024-08-12 11:57 | PCM.DS ---
Discharge Summary Date of Admission: 08/09/24 02:37 Date of Discharge: 08/12/24 Admitting Physician: OJ GARCES MD Primary Care Provider: ROSMERY WASHINGTON Allergies Allergies Tetanus Vaccines and Toxoid [Tetanus Vaccines & Toxoid] Adverse Reaction (Severe, Verified 08/09/24 01:17) Difficulty Swallowing states CAN have toxiod but no other tetanus Sulfa (Sulfonamide Antibiotics) Adverse Reaction (Unknown, Verified 08/09/24 01:17) states was allergic to sulfa at age 4 when had meningitis Hospital Summary - Hospital Course Hospital Course: Ms. Malave is a 78 year old female with a pmhx of HTN, fibromyalgia, and OA admitted 08/09/24 with a right medial tibial plateau fracture. X-ray and CT scan of right knee show a medial tibial plateau fracture with 2 cm of depression and varus angulation. Ortho has been consulted with plans for an open reduction internal fixation of the medial plateau to try to prevent malunion to be performed 08/10/24. 08/10/24: Patient doing well awaiting surgical intervention today. Pain is controlled. Right leg in splint. Plan for an open reduction internal fixation of the medial plateau to try to prevent malunion. Denies fever,cough, sob, cp, abdominal pain, APODACA, dizziness, N/V/D. 08/11/24: No overnight events noted. PODS #1 and patient is doing well. Potassium to be replenished. Ortho following. Patient would like rehab on discharge, CM working on this. Denies fever,cough, sob, cp, abdominal pain, APODACA, dizziness, N/V/D. 08/12/24: No overnight events noted. Pain controlled. Patient to discharge to SNF. Plan: Physical therapy may remove knee immobilizer for 0 to 30 degrees range of motion of knee.Otherwise keep knee immobilizer on. Toe-touch weight-bear for 8 weeks then 50% weight-bear for 4 weeks after that Return to Ortho clinic 10 to 12 days postop for staple removal and x-ray. Patient is agreeable to plan and stable for discharge. Discharge Note Latest Assessment & Plan (1) Right medial tibial plateau fracture Current Visit: Yes Status: Acute Assessment & Plan: -Ortho documentation from 08/09/24 reviewed, agree with plan for open reduction internal fixation of the medial plateau to try to prevent malunion to be performed 08/10/24 -XR and CT reviewed showing a medial tibial plateau fracture with 2 cm of depression and varus angulation -Pain control 08/11/24: -Ortho following - [facility] -PT eval and continue while IP -ASA 325mg -pain controlled -SNF pending 08/12: - Ortho note reviewed: Plan: Physical therapy may remove knee immobilizer for 0 to 30 degrees range of motion of knee.Otherwise keep knee immobilizer on. Toe- touch weight-bear for 8 weeks then 50% weight-bear for 4 weeks after that Return to Ortho clinic 10 to 12 days postop for staple removal and x-ray. Code(s): S82.131A - DISP FX OF MEDIAL CONDYLE OF RIGHT TIBIA, INIT FOR CLOS FX (2) HTN (hypertension) Current Visit: Yes Status: Acute Assessment & Plan: -Continue home Norvasc and lisinopril Code(s): I10 - ESSENTIAL (PRIMARY) HYPERTENSION (3) Fibromyalgia Current Visit: Yes Status: Acute Assessment & Plan: -noted, continue home regimen (4) Smoker Current Visit: Yes Status: Acute Assessment & Plan: -nicotine patch Code(s): F17.200 - NICOTINE DEPENDENCE, UNSPECIFIED, UNCOMPLICATED (5) Hyponatremia Current Visit: Yes Status: Acute Assessment & Plan: -CMP reviewed with sodium mildly decreased at 132 - continue IVF 08/11/24 -Sodium level reviewed at 133 - improving 08/12/24: -Improved- will need CMP at [place] with follow up Alcohol abuse -[facility] protocol Hypokalemia -potassium level reviewed at 3.4 will replenish per protocol -mag level WNL 08/12/24: -resolved Code(s): E87.1 - HYPO-OSMOLALITY AND HYPONATREMIA I spent 35 minutes [id number] with the patient on the day of discharge performing discharge exam, discussing hospital stay and discharge instructions with patient and caregivers, preparation of discharge records, prescriptions & referral forms and addressing any questions/concerns the patient had as documented above. - Vitals & Intake/Output Vital Signs: Vital Signs Temperature 97.6 F 08/12/24 11:37 Pulse Rate 74 08/12/24 11:37 Respiratory Rate 16 08/12/24 11:37 Blood Pressure 139/67 08/12/24 11:37 O2 Sat by Pulse Oximetry 96 08/12/24 11:37 Intake & Output: Intake & Output 08/09/24 08/10/24 08/11/24 08/12/24 11:59 11:59 11:59 11:59 Intake Total 60 748 2245 1480 Output Total 309 797 0661 1100 Balance -190 -152 1170 380 Weight 42.4 kg 42.4 kg - Lab Result Diagrams: 08/12/24 04:50 08/12/24 04:50 Lab Results-Last 24 Hrs: Lab Results-Last 24 Hours 08/11/24 08/12/24 08/12/24 Range/Units 18:42 04:50 04:50 WBC 6.2 (3.98-10.04) x10^3/uL RBC 3.30 L (3.93-5.22) x10^6/uL Hgb 11.0 L (11.2-15.7) g/dL Hct 32.2 L (34.1-44.9) % MCV 97.6 H (79.4-94.8) fL MCH 33.3 H (25.6-32.2) pg MCHC 34.2 (32.2-35.5) g/dL RDW 12.6 (11.7-14.4) % Plt Count 174 L (182-369) x10^3/uL MPV 9.3 L (9.4-12.3) fL Gran % 77.6 H (34.0-71.1) % Immature Gran % (Auto) 0.2 (0.001-0.429) % Nucleat RBC Rel Count 0.0 (0.00-0.2) % Eos # (Auto) 0.04 (0.04-0.36) x10^3/uL Immature Gran # (Auto) 0.01 (0.001-0.031) x10^3u/L Absolute Lymphs (auto) 0.83 L (1.18-3.74) x10^3/uL Absolute Monos (auto) 0.49 (0.24-0.86) x10^3/uL Absolute Nucleated RBC 0.00 (0.00-0.012) x10^3u/L Lymphocytes % 13.4 L (19.3-51.7) % Monocytes % 7.9 (4.7-12.5) % Eosinophils % 0.6 L (0.7-5.8) % Basophils % 0.3 (0.1-1.2) % Absolute Granulocytes 4.80 (1.56-6.13) x10^3/uL Basophils # 0.02 (0.01-0.08) x10^3/uL Sodium 133 L (135-145) mmol/L Potassium 4.0 D 4.0 (3.5-5.1) mmol/L Chloride 102 (98-107) mmol/L Carbon Dioxide 31 H (22-30) mmol/L Anion Gap 3.6 L (5-15) MEQ/L BUN 13 (7-17) mg/dL Creatinine 0.53 (0.52-1.04) mg/dL Estimated GFR 95.2 ML/MIN Glucose 115 H (74-106) mg/dL Calcium 9.2 (8.4-10.2) mg/dL Magnesium 1.8 (1.6-2.3) mg/dL Total Bilirubin 0.70 (0.2-1.3) mg/dL AST 35 (14-36) U/L ALT 15 (0-35) U/L Alkaline Phosphatase 68 (38-126) U/L Serum Total Protein 6.1 L (6.3-8.2) g/dL Albumin 3.2 L (3.5-5.0) g/dL Micro Results-Entire Visit: Microbiology 08/09/24 17:35 Urine Culture - Final Urine, Indwelling Catheter <10K NORMAL SKIN MAURICIO PROBABLE SKIN CONTAMINANT - Procedures and Test Procedures and Tests throughout Hospitalization: Therapy Orders & Screens 08/10/24 14:44 PT Eval & Treat (MD Order) ONCE Reason for Eval:: for rehab placement Diagnosis: Tibial plateau fracture Incentive Spirometry Q1H Comment: Diagnosis: Tibial plateau fracture 08/10/24 15:31 Respiratory Therapy Assessment DAILY Comment: Diagnosis: Tibial plateau fracture 08/10/24 15:32 Oxygen Nasal Cannula 2 lpm Comment: Diagnosis: Tibial plateau fracture 08/12/24 10:46 Respiratory MDI UD Comment: Diagnosis: Tibial plateau fracture Discharge Exam General Appearance: no apparent distress Neurologic Exam: alert, oriented x 3, cooperative Eye Exam: PERRL Ears, Nose, Throat Exam: normal ENT inspection Neck Exam: normal inspection Respiratory Exam: normal breath sounds, lungs clear Cardiovascular Exam: regular rate/rhythm, normal heart sounds Gastrointestinal/Abdomen Exam: soft, normal bowel sounds Pelvic Exam: deferred Rectal Exam: deferred Back Exam: normal inspection Extremity Exam: limited range of motion (RLE) Final Diagnosis/Problem List - Final Discharge Diagnosis/Problem (1) Right medial tibial plateau fracture Current Visit: Yes Status: Acute Code(s): S82.131A - DISP FX OF MEDIAL CONDYLE OF RIGHT TIBIA, INIT FOR CLOS FX (2) HTN (hypertension) Current Visit: Yes Status: Chronic Code(s): I10 - ESSENTIAL (PRIMARY) HYPERTENSION (3) Fibromyalgia Current Visit: Yes Status: Chronic (4) Smoker Current Visit: Yes Status: Chronic Code(s): F17.200 - NICOTINE DEPENDENCE, UNSPECIFIED, UNCOMPLICATED (5) Hyponatremia Current Visit: Yes Status: Acute Code(s): E87.1 - HYPO-OSMOLALITY AND HYPONATREMIA (6) Hypokalemia Current Visit: Yes Status: Resolved Code(s): E87.6 - HYPOKALEMIA - Discharge Discharge Date: 08/12/24 Disposition: DC TO ANY "OTHER" RETIREMENT Condition: Stable Prescriptions: New Aspirin EC 325 mg [Ecotrin 325 MG] 325 mg PO QAM tablet Folic Acid 1 mg [Folate 1 mg] 1 mg PO DAILY tablet Hydrocodone/Acetaminophen [Hydrocodone-Acetamin 5-325 mg] 1 tab PO Q4HPRN PRN 3 Days #18 tablet MDD 6 PRN Reason: Pain Nicotine 21 mg [Nicoderm CQ 21 MG] 21 mg TOP DAILY patch Multivitamins,Therapeutic Tab* [Theragran Multivitamin] 1 tab PO QAM tablet Continue [place]-3 Fatty Acids/Fish Oil [Fish Oil 1,000 mg Softgel] 3 ea PO BID Lisinopril 10 mg [Zestril 10 MG] 10 mg PO HS atenoloL [Atenolol] 25 mg PO HS Cholecalciferol (Vitamin D3) [Vitamin D3] 125 mcg PO DAILY Ascorbic Acid [Vitamin C] 1,000 mg PO DAILY Cyanocobalamin (Vitamin B-12) [Vitamin B-12] 1,000 mcg PO DAILY Amlodipine Besylate [Norvasc] 2.5 mg PO DAILY Meloxicam 15 mg [Meloxicam 15 MG] 15 mg PO DAILY Magnesium 400 mg PO DAILY Calcium Carbonate [Calcium] 600 mg PO DAILY Zinc Gluconate 50 mg [Zinc Gluconate 50 MG] 50 mg PO DAILY Turmeric Root Extract [Turmeric Curcumin] 1,500 mg PO BID Lutein [Natural Lutein] 20 mg PO DAILY Umeclidinium Brm/Vilanterol Tr [Anoro Ellipta 62.5-25 Mcg INH] 1 each IH DAILY Thiamine HCl [Vitamin B-1] 250 mg PO DAILY Garlique 1 tab PO DAILY Azelastine HCl [Astepro Allergy] 205.5 mcg NS BID Loratadine 10 mg [Claritin 10 mg] 10 mg PO DAILY Albuterol 2.5 mg/0.5 ml [PROVENTIL Solution 2.5 MG/0.5 ML] 2.5 mg IH Q4-6HPRN PRN PRN Reason: Shortness Of Breath/Wheezing Additional Instructions: RETIREMENT ORDERS: ADMIT TO DETENTION FACILITY REGULAR DIET PT/OT EVAL AND TREAT: SEE RESTRICTIONS MAY REMOVE KNEE IMMOBILIZER FOR 0-30 DEGREES ROM OF KNEE, OTHERWISE KEEP KNEE IMMOBILIZER ON TOE-TOUCH WEIGHT-BEAR FOR 8 WEEKS THEN 50% WEIGHT-BEAR FOR 4 WEEKS AFTER THAT REINFORCE DRESSING IF NEEDED, MAY CHANGE ON POST OP DAY 5 (08/15) RETURN TO CLINIC SCHEDULED 10-12 DAYS POST OP FOR STAPLE REMOVAL AND XRAY RETURN TO CLINIC SCHEDULED IN SEPTEMBER FOR FOLLOW UP SEE ATTACHED MED LIST Follow up with: LESA PARRISH MD [ACTIVE STAFF] - 09/14/24 1:00 pm ERIC HERCULES [CONSULTING PHYSICIAN] - JALEN CONTRERAS NP [NON-STAFF PHY W/O PRIVILEGES] - 08/24/24 10:30 am
== END 2024-08-12 14:45 | DRG 493 ==
LOC: ED 00:54 → MED SURG 02:37 → INTOOBSV 02:37 → OBSVTOIN 02:37
PROVIDERS: ADMIT Student in an Organized Health Care Education/Training Program; ATTEND Student in an Organized Health Care Education/Training Program
PROC: 0QSG04Z Reposition Right Tibia with Internal Fixation Device, Open Approach (ICD-10-PCS; principal; 2024-08-10)
DX: S82.131A Displaced fracture of medial condyle of right tibia, initial encounter for closed fracture (principal); E87.1 Hypo-osmolality and hyponatremia; W19.XXXA Unspecified fall, initial encounter; I10 Essential (primary) hypertension; M79.7 Fibromyalgia; F17.200 Nicotine dependence, unspecified, uncomplicated; F10.10 Alcohol abuse, uncomplicated; E87.6 Hypokalemia; Z79.899 Other long term (current) drug therapy
CPT/HCPCS: 36415; 64447; 70450; 70486; 73562; 73590; 73700; 76000; 76937; 80048; 80053; 83735; 84132; 85025; 85027; 87086; 94640; 94760; 99100; 99282; 99285; C1713; C1762; J0666; J0690; J1171; J2250; J2405; J2704; J3010; L1830; Q3014; 97110-GP; A9270-GY

== ENCOUNTER 2024-09-27 16:02 | Emergency (ER) | payer MEDICARE, OTHER ==
[2024-09-27 16:24] VITALS: TEMP 97.8
--- NOTE | 2024-09-27 16:39 | ERPHSYRPT ---
- History of Present Illness Time Seen by Provider: 09/27/24 16:20 Source: EMS Exam Limitations: clinical condition Physician History: 78yo f presents from [facility] inpatient [facility] for concerns of stroke. Pt last known well 14:00 today. Nursing staff and EMS report pt has had unintelligible speech since 2pm today which is a totally new symptom for her. Pt is currently undergoing rehab for recent tibial fracture. Pt is unable to follow simple commands. Pt speech is dysarthric, pt is not speaking in comprehensible language, speech is rather rapid in nature as well. Pt is not on anticoagulants per [facility] med rec. Timing/Duration: today (1400 last known well) Severity: moderate Character of Deficits: impaired speech Baseline/Normal Cognition: alert oriented x 3 Current Cognition: alert but confused (unintelligible speech) Baseline Gait: walks only w/assistance (currently undergoing rehab for broken tibia right) Associated Symptoms: slurred speech, No fever, No vomiting Allergies/Adverse Reactions: Tetanus Vaccines and Toxoid [Tetanus Vaccines & Toxoid] Adverse Reaction (Severe, Verified 09/27/24 16:14) Difficulty Swallowing states CAN have toxiod but no other tetanus Sulfa (Sulfonamide Antibiotics) Adverse Reaction (Unknown, Verified 09/27/24 1 6:14) states was allergic to sulfa at age 4 when had meningitis Home Medications: [place]-3 Fatty Acids/Fish Oil [Fish Oil 1,000 mg Softgel] 3 ea PO BID 04/19/15 [History] Lisinopril 10 mg [Zestril 10 MG] 10 mg PO HS 12/09/18 [History] atenoloL [Atenolol] 25 mg PO HS 12/09/18 [History] Amlodipine Besylate [Norvasc] 2.5 mg PO DAILY 01/08/22 [History] Cholecalciferol (Vitamin D3) [Vitamin D3] 5,000 unit PO DAILY 01/08/22 [History] Meloxicam 15 mg [Meloxicam 15 MG] 15 mg PO HS 01/08/22 [History] Albuterol 2.5 mg/0.5 ml [PROVENTIL Solution 2.5 MG/0.5 ML] 2.5 mg IH Q4- 6HPRN PRN 08/09/24 [History] Azelastine HCl [Astepro Allergy] 205.5 mcg NS BID 08/09/24 [History] Loratadine 10 mg [Claritin 10 mg] 10 mg PO DAILY 08/09/24 [History] Umeclidinium Brm/Vilanterol Tr [Anoro Ellipta 62.5-25 Mcg INH] 1 each IH DAILY 08/09/24 [History] Aspirin EC 81 mg [Ecotrin 81 mg] 81 mg PO DAILY 09/27/24 [History] Docusate Sodium [Colace] 100 mg PO BID 09/27/24 [History] Hx Tetanus, Diphtheria Vaccination/Date Given: No Hx Influenza Vaccination/Date Given: Yes Hx Pneumococcal Vaccination/Date Given: Yes Travel Risk - Emerging Infectious Disease Are you exhibiting symptoms associated with any current EIDs: No - Review of Systems Respiratory: No Cough Cardiac: No Edema Abdominal/Gastrointestinal: No Vomiting, No Diarrhea - Past Medical History Pertinent Past Medical History: Yes Neurological History: Other ENT History: Cataracts Cardiac History: Hypertension, Other Respiratory History: COPD, Other Endocrine Medical History: No Pertinent History Musculoskeletal History: Fibromyalgia, Fractures, Osteoarthritis GI Medical History: No Pertinent History History: No Pertinent History Psycho-Social History: No Pertinent History Female Reproductive Disorders: No Pertinent History Other Medical History: Meningitis at age 4, Displaced fracture of medial condyle of right tibia, muscle wasting - Past Surgical History Past Surgical History: Yes Neuro Surgical History: No Pertinent History Cardiac: No Pertinent History Respiratory: No Pertinent History Gastrointestinal: No Pertinent History Genitourinary: No Pertinent History Musculoskeletal: Other Female Surgical History: Tubal Ligation, Other Other Surgical History: shaheen. mastectomy with reconstruction,right hip replacement, kyphoplasty x 2, right tibia - Social History Drug Use: none - Social Determinants of Health Will the patient participate in the screening: Yes Do you worry about a steady place to live?: No In the past 12 months,have you had to go without utilities?: No Transportation Issues: No Has anyone in your support network made you feel unsafe?: No Have you or anyone in your house had to go w/o enough food: No - Nursing Vital Signs Nursing Vital Signs: Initial Vital Signs Temperature 97.8 F 09/27/24 16:19 Pulse Rate 80 09/27/24 16:19 Respiratory Rate 17 09/27/24 16:19 Blood Pressure 223/119 09/27/24 16:19 O2 Sat by Pulse Oximetry 94 L 09/27/24 16:19 Pain Scale Pain Intensity 0 - [place] Coma Scale Best Eye Response (Adrien): (4) open spontaneously Best Verbal Response (Adrien): (3) inappropriate words Best Motor Response (Adrien): (5) localizes to pain Adrien Total: 12 - Physical Exam General Appearance: no apparent distress Eye Exam: bilateral eye: normal inspection, PERRL, EOMI Ears, Nose, Throat Exam: normal ENT inspection Neck Exam: normal inspection, non-tender Respiratory: normal breath sounds, lungs clear, airway intact, No chest tenderness, No respiratory distress Cardiovascular: regular rate/rhythm, normal heart sounds Gastrointestinal: soft, No tenderness, No distention Extremity Exam: other (RLE in air cast, RUE significantly weaker than left 2/4 strength w/ minimal active motion) Mental Status: other (aphasic speech, speech incomprehensible, word finding difficulties, minimally able to follow simple commands) straightener hand Exam: PERRL, abnormal speech (aphasic speech, speech incomprehensible, word finding difficulties, minimally able to follow simple commands), No normal speech, No facial asymmetry, No facial droop, No facial weakness, No gaze palsy Motor/Sensory: weak motor strength RUE, weak motor strength RLE Skin Exam: normal color SpO2 Interpretation: normal SpO2: 96 O2 Delivery: Room Air - Course EKG Interpreted by Me: RATE (80), Sinus Rhythm, Left Bundle Branch Block, Non- specific ST Changes (not suggestive of acute ischemia) Ordered Tests: Active Orders 24 hr Category Date Time Status EKG-ER Only STAT Care 09/27/24 16:24 Active NPO (ED) STAT Care 09/27/24 16:24 Active Tele-Health Consult ROUTINE Cons 09/27/24 17:03 Active CHEST 1 VIEW (PORTABLE) Stat Exams 09/27/24 16:[address] ANGIOGRAPHY NECK [CT] Stat Exams 09/27/24 16:38 Ordered CTA HEAD W AND/OR WO CONTRAST [CT] Stat Exams 09/27/24 16:38 Ordered HEAD WITHOUT CONTRAST [CT] Stat Exams 09/27/24 16:04 Completed BMP Stat Lab 09/27/24 16:54 Completed CBC W DIFF Stat Lab 09/27/24 16:54 Completed POCT GLUCOSE Stat Lab 09/27/24 17:17 Completed PTT Stat Lab 09/27/24 16:54 Completed TROPONIN Q4H Lab 09/27/24 16:54 Completed TROPONIN Q4H Lab 09/27/24 20:30 Ordered TROPONIN Q4H Lab 09/28/24 00:30 Ordered UA W/RFX UR CULTURE Stat Lab 09/27/24 16:37 Completed Urine Triage Profile Stat Lab 09/27/24 16:37 Completed Medication Summary Discontinued Medications Generic Name Dose Route Start Last Admin Trade Name Blair PRN Reason Stop Dose Admin Alteplase, Recombinant 40.2 mg 09/27/24 17:30 09/27/24 17:47 Alteplase 100 Mg Vial IV 09/27/24 17:31 40.2 mg STAT STA Administration Lab/Rad Data: Laboratory Result Diagrams 09/27/24 16:54 09/27/24 16:54 Laboratory Results 09/27/24 09/27/24 09/27/24 Range/Units 17:17 16:54 16:54 WBC (3.98-10.04) x10^3/uL RBC (3.93-5.22) x10^6/uL Hgb (11.2-15.7) g/dL Hct (34.1-44.9) % MCV (79.4-94.8) fL MCH (25.6-32.2) pg MCHC (32.2-35.5) g/dL RDW (11.7-14.4) % Plt Count (182-369) x10^3/uL MPV (9.4-12.3) fL Gran % (34.0-71.1) % Immature Gran % (Auto) (0.001-0.429) % Nucleat RBC Rel Count (0.00-0.2) % Eos # (Auto) (0.04-0.36) x10^3/uL Immature Gran # (Auto) (0.001-0.031) x10^3u/L Absolute Lymphs (auto) (1.18-3.74) x10^3/uL Absolute Monos (auto) (0.24-0.86) x10^3/uL Absolute Nucleated RBC (0.00-0.012) x10^3u/L Lymphocytes % (19.3-51.7) % Monocytes % (4.7-12.5) % Eosinophils % (0.7-5.8) % Basophils % (0.1-1.2) % Absolute Granulocytes (1.56-6.13) x10^3/uL Basophils # (0.01-0.08) x10^3/uL APTT 27.6 (25.1-36.5) SECONDS Sodium (135-145) mmol/L Potassium (3.5-5.1) mmol/L Chloride (98-107) mmol/L Carbon Dioxide (22-30) mmol/L Anion Gap (5-15) MEQ/L BUN (7-17) mg/dL Creatinine (0.52-1.04) mg/dL Estimated GFR ML/MIN Glucose (74-106) mg/dL POC Glucometer 102 (74 to 106) mg/dL Calcium (8.4-10.2) mg/dL Troponin I < 0.012 (0.000-0.033) ng/mL Urine Color (Yellow) Urine Appearance (Clear) Urine pH (4.6-8.0) Ur Specific [place] (1.005-1.030) Urine Protein (Negative) Urine Glucose (UA) (Negative) mg/dL Urine Ketones (Negative) Urine Blood (Negative) Urine Nitrite (Negative) Urine Bilirubin (Negative) Urine Urobilinogen (0.2) mg/dL Ur Leukocyte Esterase (Negative) U Hyaline Cast (Auto) (0-2) /LPF Urine Microscopic RBC (0-5) /HPF Urine Microscopic WBC (0-5) /HPF Ur Epithelial Cells (None Seen) /HPF Urine Bacteria (None Seen) /HPF Urine Culture Reflexed (NO) Urine Opiates Level (NEGATIVE) Ur Methadone (NEGATIVE) Urine Barbiturates (NEGATIVE) Ur Phencyclidine (PCP) (NEGATIVE) Urine Amphetamine (NEGATIVE) U Benzodiazepine Level (NEGATIVE) Urine Cocaine (NEGATIVE) Urine Marijuana (THC) (NEGATIVE) 09/27/24 09/27/24 09/27/24 Range/Units 16:54 16:54 16:37 WBC 11.3 H (3.98-10.04) x10^3/uL RBC 4.31 (3.93-5.22) x10^6/uL Hgb 13.5 (11.2-15.7) g/dL Hct 42.2 (34.1-44.9) % MCV 97.9 H (79.4-94.8) fL MCH 31.3 (25.6-32.2) pg MCHC 32.0 L (32.2-35.5) g/dL RDW 11.8 (11.7-14.4) % Plt Count 296 (182-369) x10^3/uL MPV 8.9 L (9.4-12.3) fL Gran % 61.2 (34.0-71.1) % Immature Gran % (Auto) 0.2 (0.001-0.429) % Nucleat RBC Rel Count 0.0 (0.00-0.2) % Eos # (Auto) 0.06 (0.04-0.36) x10^3/uL Immature Gran # (Auto) 0.02 (0.001-0.031) x10^3u/L Absolute Lymphs (auto) 3.51 (1.18-3.74) x10^3/uL Absolute Monos (auto) 0.74 (0.24-0.86) x10^3/uL Absolute Nucleated RBC 0.00 (0.00-0.012) x10^3u/L Lymphocytes % 31.1 (19.3-51.7) % Monocytes % 6.5 (4.7-12.5) % Eosinophils % 0.5 L (0.7-5.8) % Basophils % 0.5 (0.1-1.2) % Absolute Granulocytes 6.91 H (1.56-6.13) x10^3/uL Basophils # 0.06 (0.01-0.08) x10^3/uL APTT (25.1-36.5) SECONDS Sodium 139 (135-145) mmol/L Potassium 4.2 (3.5-5.1) mmol/L Chloride 99 (98-107) mmol/L Carbon Dioxide 28 (22-30) mmol/L Anion Gap 15.6 H (5-15) MEQ/L BUN 19 H (7-17) mg/dL Creatinine 0.62 (0.52-1.04) mg/dL Estimated GFR 91.7 ML/MIN Glucose 101 (74-106) mg/dL POC Glucometer (74 to 106) mg/dL Calcium 9.9 (8.4-10.2) mg/dL Troponin I (0.000-0.033) ng/mL Urine Color (Yellow) Urine Appearance (Clear) Urine pH (4.6-8.0) Ur Specific [place] (1.005-1.030) Urine Protein (Negative) Urine Glucose (UA) (Negative) mg/dL Urine Ketones (Negative) Urine Blood (Negative) Urine Nitrite (Negative) Urine Bilirubin (Negative) Urine Urobilinogen (0.2) mg/dL Ur Leukocyte Esterase (Negative) U Hyaline Cast (Auto) (0-2) /LPF Urine Microscopic RBC (0-5) /HPF Urine Microscopic WBC (0-5) /HPF Ur Epithelial Cells (None Seen) /HPF Urine Bacteria (None Seen) /HPF Urine Culture Reflexed (NO) Urine Opiates Level NEGATIVE (NEGATIVE) Ur Methadone NEGATIVE (NEGATIVE) Urine Barbiturates NEGATIVE (NEGATIVE) Ur Phencyclidine (PCP) NEGATIVE (NEGATIVE) Urine Amphetamine NEGATIVE (NEGATIVE) U Benzodiazepine Level NEGATIVE (NEGATIVE) Urine Cocaine NEGATIVE (NEGATIVE) Urine Marijuana (THC) POSITIVE A (NEGATIVE) 09/27/24 Range/Units 16:37 WBC (3.98-10.04) x10^3/uL RBC (3.93-5.22) x10^6/uL Hgb (11.2-15.7) g/dL Hct (34.1-44.9) % MCV (79.4-94.8) fL MCH (25.6-32.2) pg MCHC (32.2-35.5) g/dL RDW (11.7-14.4) % Plt Count (182-369) x10^3/uL MPV (9.4-12.3) fL Gran % (34.0-71.1) % Immature Gran % (Auto) (0.001-0.429) % Nucleat RBC Rel Count (0.00-0.2) % Eos # (Auto) (0.04-0.36) x10^3/uL Immature Gran # (Auto) (0.001-0.031) x10^3u/L Absolute Lymphs (auto) (1.18-3.74) x10^3/uL Absolute Monos (auto) (0.24-0.86) x10^3/uL Absolute Nucleated RBC (0.00-0.012) x10^3u/L Lymphocytes % (19.3-51.7) % Monocytes % (4.7-12.5) % Eosinophils % (0.7-5.8) % Basophils % (0.1-1.2) % Absolute Granulocytes (1.56-6.13) x10^3/uL Basophils # (0.01-0.08) x10^3/uL APTT (25.1-36.5) SECONDS Sodium (135-145) mmol/L Potassium (3.5-5.1) mmol/L Chloride (98-107) mmol/L Carbon Dioxide (22-30) mmol/L Anion Gap (5-15) MEQ/L BUN (7-17) mg/dL Creatinine (0.52-1.04) mg/dL Estimated GFR ML/MIN Glucose (74-106) mg/dL POC Glucometer (74 to 106) mg/dL Calcium (8.4-10.2) mg/dL Troponin I (0.000-0.033) ng/mL Urine Color Yellow (Yellow) Urine Appearance Clear (Clear) Urine pH 8.0 (4.6-8.0) Ur Specific [place] <=1.005 (1.005-1.030) Urine Protein Negative (Negative) Urine Glucose (UA) Negative (Negative) mg/dL Urine Ketones Negative (Negative) Urine Blood Negative (Negative) Urine Nitrite Negative (Negative) Urine Bilirubin Negative (Negative) Urine Urobilinogen 0.2 (0.2) mg/dL Ur Leukocyte Esterase Negative (Negative) U Hyaline Cast (Auto) NONE SEEN (0-2) /LPF Urine Microscopic RBC 0-2 (0-5) /HPF Urine Microscopic WBC 0-2 (0-5) /HPF Ur Epithelial Cells None Seen (None Seen) /HPF Urine Bacteria None Seen (None Seen) /HPF Urine Culture Reflexed NO (NO) Urine Opiates Level (NEGATIVE) Ur Methadone (NEGATIVE) Urine Barbiturates (NEGATIVE) Ur Phencyclidine (PCP) (NEGATIVE) Urine Amphetamine (NEGATIVE) U Benzodiazepine Level (NEGATIVE) Urine Cocaine (NEGATIVE) Urine Marijuana (THC) (NEGATIVE) - Progress Progress: re-examined Progress Note: 09/27/24 16:[address] head w/o contrast, will order CTA head/neck at this time 09/27/24 17:21 at 17:15 I spoke w/ Dr Ayala (teleneurologist) regarding pt's current state and last known well of 1400 discussed NIHSS of 22, expressive aphasia and R upper and lower extremity defici ts Dr Ayala recommended giving TNK or TPA for symptoms of ischemic stroke also reported that pt is a fair candidate for thrombectomy 09/27/24 17:24 I spoke w/ pt's son and daughter in law regarding risk and benefits of giving TPA including significant bleeding risk and risk of loss of life son voiced understanding of risk and is in agreement that he would like to have pt treated with TPA will order at this time 09/27/24 18:23 i spoke w/ [facility]y at [facility] Christiansen regarding pt case and need for transfer, she recommended obtaining CTA head/neck and transferring via helicopter, she is willing to accept for transfer 09/27/24 18:24 On re-exam, pt continues to have expressive aphasia, pupils still PERRLA 09/27/24 18:56 CTA being performed 09/27/24 19:30 pt transported out of our facility by [facility] by air Medical Desision Making - Diagnostic Testing Diagnostic test were ordered, analyzed, and reviewed by me: Yes Radiological Interpretation: Reviewed by me, Teleradiologist Report - Risk of complications The pt has a high risk of morbidity or mortality based on: Decision regarding hospitilization or escalation of hosp level of care - Departure Departure Disposition: Transfer Clinical Impression: Ischemic stroke, Received thrombolytics, Right arm weakness Condition: Stable Critical Care Time: Yes Critical Care Time(excluding separately billable procedures): Critical 75-104 mins Referrals: ROSMERY WASHINGTON [Primary Care Provider] - Follow up/PCP as directed
--- NOTE | 2024-09-27 16:44 | XRAY ---
CLINICAL HISTORY: SLURRED SPEECH COMPARISON: 08/09/2024. TECHNIQUE: Axial non-contrast CT scan of the brain was performed from the skull base to the high parietal region. One of the following dose reduction techniques were utilized for this exam: Automated exposure control, adjustment of the mA and/or kV according to patient size, use of iterative reconstruction. CTDI: 53.92, DLP: 2005.58 FINDINGS: Mild symmetrical dilatation of the supratentorial ventricles. Deepening of the cortical sulci, basal cisterns and sylvian fissures. Stable focal left thalamic and right basal ganglionic hypodensities Bilateral ill-defined hypodensities are seen in the periventricular white matter suggesting atherosclerotic leukoencephalopathy. No shift of midline structures detected. No intra or extra-axial collections. Normal posterior fossa structures. IMPRESSION: 1. No acute major territorial infarction, hemorrhage, or mass effects. 2. Stable focal left thalamic and right basal ganglionic hypodensities denote chronic lacunar infarcts. 3. Generalized involutional changes with chronic microvascular ischemic changes. (unchanged) 4. Early changes of acute ischemic infarct may sometimes not be detected on a CT scan. If clinically suspicious, MRI with diffusion-weighted imaging may be recommended for further evaluation. [facility] was called at at 3:36 PM [employer] 09/27/2024 and Bo Singh was informed regarding the negative stroke results. Electronically Signed by: Isabel Sequeira MD. (09/27/2024 16:39:12 EST)
[2024-09-27 16:54] LABS: Absolute Neutrophil Ct (ANC) 6.91 x10^3/uL (1.56-6.13); BASOPHIL % 0.5 % (0.1-1.2); Basophil (Absolute #) 0.06 x10^3/uL (0.01-0.08); Eosinophil % 0.5 % (0.7-5.8); Eosinophil (Absolute #) 0.06 x10^3/uL (0.04-0.36); Hematocrit 42.2 % (34.1-44.9); Hemoglobin 13.5 g/dL (11.2-15.7); IMMATURE GRAN # 0.02 x10^3u/L (0.001-0.031); IMMATURE GRAN % 0.2 % (0.001-0.429); Lymphocyte (Absolute #) 3.51 x10^3/uL (1.18-3.74); Lymphocytes % 31.1 % (19.3-51.7); Mean Cell Volume 97.9 fL (79.4-94.8); Mean Corpuscular Hemoglobin 31.3 pg (25.6-32.2); Mean Platelet Volume 8.9 fL (9.4-12.3); Monocyte (Absolute #) 0.74 x10^3/uL (0.24-0.86); Monocytes % 6.5 % (4.7-12.5); Neutrophil % 61.2 % (34.0-71.1); Platelet Count 296 x10^3/uL (182-369); Red Blood Count 4.31 x10^6/uL (3.93-5.22); Red Cell Distribution Width 11.8 % (11.7-14.4); White Blood Count 11.3 x10^3/uL (3.98-10.04)
[2024-09-27 17:05] LABS: Appearance Clear (Clear); Bacteria None Seen /HPF (None Seen); Bilirubin Negative (Negative); Blood Negative (Negative); Epithelial Cells None Seen /HPF (None Seen); Glucose, Urine Negative (Negative); Hyaline Casts NONE SEEN /LPF (0-2); Ketones Negative (Negative); Leukocyte Esterase Negative (Negative); Nitrite Negative (Negative); Protein,Urine Dip Negative (Negative); RBC 0-2 /HPF (0-5); Specific Gravity <=1.005 (1.005-1.030); Urobilinogen 0.2 mg/dL (0.2); WBC 0-2 /HPF (0-5)
[2024-09-27 17:15] LABS: Amphetamine,Urine NEGATIVE (NEGATIVE); Barbiturate,Urine NEGATIVE (NEGATIVE); Benzodiazepine,Urine NEGATIVE (NEGATIVE); Cocaine,Urine NEGATIVE (NEGATIVE); Methadone,Urine NEGATIVE (NEGATIVE); Opiate,Urine NEGATIVE (NEGATIVE); PCP,Urine NEGATIVE (NEGATIVE); THC,Urine POSITIVE (NEGATIVE)
[2024-09-27 17:40] LABS: ANION GAP 15.6 MEQ/L (5-15); Calcium 9.9 mg/dL (8.4-10.2); Creatinine 1 0.62 mg/dL (0.52-1.04); EST GLOMERULAR FILTRATION RATE 91.7 ML/MIN; Potassium 4.2 mmol/L (3.5-5.1)
[2024-09-27] MEDS: Activase 100 MG IV STA (17:47)
[2024-09-27 18:17] VITALS: O2SAT 96
--- NOTE | 2024-09-27 19:12 | XRAY ---
Indication: Stroke. Comparison: January 08, 2024 Portable chest unchanged again appearing clear with incidental COPD. Heart not enlarged. Bony thorax intact again with osteopenia, degenerative changes, T8/T9/L2 vertebroplasty, old right humerus fracture with grossly intact hardware, and bilateral calcified breast implants. No new/acute findings.
[2024-09-27 19:25] VITALS: BP 190/105; PULSE 86; RESP 25
--- NOTE | 2024-09-27 21:04 | XRAY ---
CLINICAL HISTORY: dysarthria, stroke r/o COMPARISON: None. TECHNIQUE: Axial CT angiography of the neck was done with contrast and sagittal and coronal reformats with MIP reconstructions. One of the following dose reduction techniques were utilized for this exam: Automated exposure control, adjustment of the mA and/or kV according to patient size, use of iterative reconstruction. FINDINGS: The aortic arch shows atherosclerotic changes with calcified plaques. Normal branching pattern noted. Calcified plaques are seen in the proximal portions of bilateral subclavian arteries, more so on the left side, resulting in 50%-60% luminal narrowing. Bilateral common carotid arteries show atherosclerotic changes with small calcified plaques. Focal fibrofatty and calcified plaques on left side, resulting in nearly 30% luminal narrowing.. Calcified plaques are seen at bilateral carotid bulbs and osteoproximal segments of internal carotid arteries, causing nearly 70-75% luminal narrowing on the right side and 60-70% luminal narrowing on the left side along with small fibrofatty plaques. The rest of cervical portions of bilateral internal carotid arteries appear normal in caliber and contrast opacification. Bilateral external carotid arteries appear normal in caliber and contrast opacification. The visualized portions of bilateral vertebral arteries appear normal in caliber and contrast opacification. No arteriovenous malformation was noted. Emphysematous changes in both lung apices. IMPRESSION: 1. Calcified plaques at bilateral carotid bulbs and osteoproximal segments of internal carotid arteries, causing nearly 70-75% luminal narrowing on the right side and 60-70% luminal narrowing on the left side along with small fibrofatty plaques. 2. Calcified plaques in the proximal portions of bilateral subclavian arteries, more so on the left side, resulting in 50%-60% luminal narrowing. 3. Bilateral common carotid arteries show atherosclerotic changes with small calcified plaques. Focal fibrofatty and calcified plaques on left side, resulting in nearly 30% luminal narrowing. Electronically Signed by: Isabel Sequeira MD. (09/27/2024 21:00:25 EST)
--- NOTE | 2024-09-27 21:06 | XRAY ---
CLINICAL HISTORY: dysarthria, stroke r/o COMPARISON: CT head done on the same date reviewed 09/27/2024. TECHNIQUE: Axial CT angiography of the head was done with contrast and sagittal and coronal reformats with MIP reconstructions. 80 cc isovue 370 intravenous contrast was administered. One of the following dose reduction techniques were utilized for this exam: Automated exposure control, adjustment of the mA and/or kV according to patient size, use of iterative reconstruction. CTDI 53.92, DLP 620.16 FINDINGS: The cavernous portions of bilateral internal carotid arteries show calcified plaques with nearly 10-20% luminal narrowing. Bilateral anterior and middle cerebral arteries appear normal in caliber and contrast opacification. The basilar artery and bilateral posterior cerebral arteries appear normal in caliber and contrast opacification. origin of right posterior cerebral artery. Right vertebral artery is marie ypoplastic, a normal variant. The left vertebral artery appears normal in caliber and contrast opacification. No evidence of definite thrombus / arteriovenous malformation. IMPRESSION: 1. No critical stenosis in CT angiography of the head. 2. Mild atherosclerotic changes in cavernous portions of bilateral internal carotid arteries Electronically Signed by: Isabel Sequeira MD. (09/27/2024 21:01:53 EST)
== END 2024-09-27 19:25 | disposition short-term general hospital (02) ==
LOC: ED 16:02
DX: I63.9 Cerebral infarction, unspecified (principal); R47.01 Aphasia; G81.91 Hemiplegia, unspecified affecting right dominant side; I10 Essential (primary) hypertension; Z79.899 Other long term (current) drug therapy
CPT/HCPCS: 36415; 51702; 70450; 70496; 70498; 71045; 80048; 80307; 81001; 82947; 84484; 85025; 85730; 93005; 96374; 99291; 99292; Q3014; 99285; J2997

== ENCOUNTER 2024-10-08 16:07 | Emergency (ER) | payer MEDICARE, OTHER ==
--- NOTE | 2024-10-08 16:48 | XRAY ---
Indication: Pain and swelling following fall. Comparison: August 09, 2024 3 view right knee demonstrates new intact medial fixation plate/transverse screws fixating medial tibial plateau fracture with improved apposition/alignment and new healing callus formation/heterotopic ossification. Remaining knee unchanged again with effusion, osteopenia and extensive vascular calcifications.
[2024-10-08 16:49] VITALS: TEMP 97.7; O2SAT 98
[2024-10-08] MEDS ORDERED: NORCO 5/325 MG ONE (17:19)
[2024-10-08] MEDS: NORCO 5/325 MG PO ONE (17:19)
--- NOTE | 2024-10-08 19:19 | ERPHSYRPT ---
- History of Present Illness Time Seen by Provider: 10/08/24 16:10 Source: patient, family, EMS, [facility] records Exam Limitations: no limitations Patient Subjective Stated Complaint: C/O right knee and lower back pain following a fall at [facility] on 10/06/24. Patient had surgery to her RLE just distal to her knee here at [facility] by Dr. Archibald on 09/14/24. Triage Nursing Assessment: Patient arrived by ambulance. She is alert and oriented. Right knee is swollen and tender to touch. No immobilizer in place to upon arrival to ER and patient reports to staff that she is non-weight bearing to RLE and is supposed to be wearing an immobilizer. Physician History: 78-year-old female is brought in the ER by EMS from [facility] with complaint of ground-level mechanical fall when she tried to get out of her bed slipped on a piece of carpet, hit her right knee, hip and upper extremity with some skin tear upper extremity. Patient continues to have pain right knee and hip with some swelling around right knee. She was recently operated on right knee here. She has hardware in right hip, right arm. She is updated with tetanus. She was recently seen here and was given tPA for strokelike symptoms. Reports mild to moderate pain right knee with movements and better with being still. Did not hit her head. No loss of consciousness. This happened 2 days ago and [facility] could not get onsite x-rays done today. Allergies/Adverse Reactions: Tetanus Vaccines and Toxoid [Tetanus Vaccines & Toxoid] Adverse Reaction (Severe, Verified 09/27/24 16:14) Difficulty Swallowing states CAN have toxiod but no other tetanus Sulfa (Sulfonamide Antibiotics) Adverse Reaction (Unknown, Verified 09/27/24 16:14) states was allergic to sulfa at age 4 when had meningitis Home Medications: [place]-3 Fatty Acids/Fish Oil [Fish Oil 1,000 mg Softgel] 3 ea PO BID 04/19/15 [History] Lisinopril 10 mg [Zestril 10 MG] 10 mg PO HS 12/09/18 [History] atenoloL [Atenolol] 25 mg PO HS 12/09/18 [History] Amlodipine Besylate [Norvasc] 2.5 mg PO DAILY 01/08/22 [History] Cholecalciferol (Vitamin D3) [Vitamin D3] 5,000 unit PO DAILY 01/08/22 [History] Meloxicam 15 mg [Meloxicam 15 MG] 15 mg PO HS 01/08/22 [History] Albuterol 2.5 mg/0.5 ml [PROVENTIL Solution 2.5 MG/0.5 ML] 2.5 mg IH Q4- 6HPRN PRN 08/09/24 [History] Azelastine HCl [Astepro Allergy] 205.5 mcg NS BID 08/09/24 [History] Loratadine 10 mg [Claritin 10 mg] 10 mg PO DAILY 08/09/24 [History] Umeclidinium Brm/Vilanterol Tr [Anoro Ellipta 62.5-25 Mcg INH] 1 each IH DAILY 08/09/24 [History] Aspirin EC 81 mg [Ecotrin 81 mg] 81 mg PO DAILY 09/27/24 [History] Docusate Sodium [Colace] 100 mg PO BID 09/27/24 [History] Hx Tetanus, Diphtheria Vaccination/Date Given: Yes Hx Influenza Vaccination/Date Given: Yes Hx Pneumococcal Vaccination/Date Given: Yes Immunizations Up to Date: Yes Travel Risk - International Travel Have you traveled outside of the country in past 3 weeks: No - Emerging Infectious Disease Are you exhibiting symptoms associated with any current EIDs: No - Review of Systems Constitutional: No Symptoms Ears, Nose, & Throat: No Symptoms Respiratory: No Symptoms Cardiac: No Symptoms Abdominal/Gastrointestinal: No Symptoms Musculoskeletal: Arthralgias, Fall, Injury, Joint Redness, Joint Pain, Joint Swelling Skin: Skin Lesions Neurological: No Symptoms Endocrine: No Symptoms Immunological/Allergic: No Symptoms - Past Medical History Pertinent Past Medical History: Yes Neurological History: Stroke, Other ENT History: Cataracts Cardiac History: Hypertension, Other Respiratory History: COPD, Other Endocrine Medical History: No Pertinent History Musculoskeletal History: Fibromyalgia, Fractures, Osteoarthritis GI Medical History: No Pertinent History History: No Pertinent History Psycho-Social History: No Pertinent History Female Reproductive Disorders: No Pertinent History Other Medical History: Meningitis at age 4, Displaced fracture of medial condyle of right tibia, muscle wasting - Past Surgical History Past Surgical History: Yes Neuro Surgical History: No Pertinent History Cardiac: No Pertinent History Respiratory: No Pertinent History Gastrointestinal: No Pertinent History Genitourinary: No Pertinent History Musculoskeletal: Other Female Surgical History: Tubal Ligation, Other Other Surgical History: shaheen. mastectomy with reconstruction,right hip replacement, kyphoplasty x 2, right tibia - Social History Smoking Status: Former smoker Exposure to second hand smoke: No Drug Use: none - Social Determinants of Health Will the patient participate in the screening: Yes Do you worry about a steady place to live?: No Do you have any problems with any of the following?: No known problems In the past 12 months,have you had to go without utilities?: No Transportation Issues: No Has anyone in your support network made you feel unsafe?: No Have you or anyone in your house had to go w/o enough food: No Comment: Living at [facility] - Nursing Vital Signs Nursing Vital Signs: Initial Vital Signs Temperature 97.7 F 10/08/24 16:07 Pulse Rate 76 10/08/24 16:07 Respiratory Rate 14 10/08/24 16:07 Blood Pressure 196/87 10/08/24 16:07 O2 Sat by Pulse Oximetry 98 10/08/24 16:07 Pain Scale Pain Intensity 10 - [place] Coma Score Best Eye Response ([place]): (4) open spontaneously Best Verbal Response ([place]): (5) oriented Best Motor Response ([place]): (6) obeys commands [place] Total: 15 - Physical Exam General Appearance: no apparent distress, alert Head Injury: no evidence of injury Eye Exam: PERRL/EOMI, eyes nml inspection ENT Exam: airway nml, No evidence of ENT injury, No dental injury Neck Exam: supple, trachea midline, full range of motion, normal alignment Respiratory/Chest Exam: normal breath sounds, No chest tenderness, No respiratory distress Cardiovascular Exam: normal heart sounds, regular rate/rhythm Gastrointestinal Exam: soft, No tenderness Back Exam: normal inspection Extremity Exam: inflammation, bony point tenderness (Right knee/right hip, mild tenderness right upper arm and elbow.), hip tenderness, pain with movement, swelling, tenderness Neurologic Exam: alert, oriented x 3, cooperative, transactional attorney II-XII nml as tested, sensation nml, No motor deficits Skin Exam: normal color SpO2 Interpretation: normal SpO2: 98 O2 Delivery: Room Air Ordered Tests: Active Orders 24 hr Category Date Time Status ELBOW (MINIMUM 3 VIEWS) Stat Exams 10/08/24 17:15 Taken HIP UNI (2V) INCL PEL IF DONE Stat Exams 10/08/24 17:15 Taken KNEE (3 VIEWS) Stat Exams 10/08/24 16:26 Completed SHOULDER Stat Exams 10/08/24 17:15 Taken Medication Summary Discontinued Medications Generic Name Dose Route Start Last Admin Trade Name [place] PRN Reason Stop Dose Admin Hydrocodone Bitart/Acetaminophen 1 tab 10/08/24 17:16 10/08/24 17:19 Hydrocodone/Apap 5/325 1 Tab Tablet PO 10/08/24 17:17 1 tab STAT ONE Administration Hydrocodone Bitart/Acetaminophen Confirm 10/08/24 17:19 Hydrocodone/Apap 5/325 1 Tab Tablet Administered 10/08/24 17:20 Dose 1 tab .ROUTE .STK-MED ONE - Progress Progress: improved Progress Note: 10/08/24 19:16 78-year-old is evaluated in the ER for [facility] mechanical [facility] at [facility] ago with injury to the right knee hip elbow and shoulder. She has swelling around right shoulder, given [place] for symptomatic relief, feeling much better. X-rays right knee showed stable hardware with no new acute finding except for some effusion, [place] wrap applied. X-rays right hip are negative for fracture dislocation reviewed by me followed by official preliminary read X-rays right elbow and shoulder negative for fracture dislocation reviewed by me, pending official read. She did not hit her head, no injury anywhere else. Patient is nonweightbearing and was supposed to start weightbearing tomorrow which I have advised her to follow-up with orthopedics before having weightbearing and use cane/walker for ambulation to avoid a fall. Discussed signs symptoms of worsening needing return to ER which patient/family seem understanding. Stable for discharge. Complexity of problem addressed: Moderate acute Complexity of data reviewed/analyzed: Moderate Risk of complication/morbidity/mortality with condition managed: Mild to moderate Counseled pt/family regarding: diagnosis, need for follow-up, rad results Medical Desision Making - Diagnostic Testing Diagnostic test were ordered, analyzed, and reviewed by me: Yes Radiological Interpretation: Interpreted by me, Reviewed by me - Risk of complications The pt has a mod risk of morbidity or mortality based on: Need for prescription drug management - Departure Departure Disposition: Home Clinical Impression: Knee contusion, Contusion, hip, Contusion, upper extremity, Skin tear, Fall Condition: Stable Critical Care Time: No Referrals: ROSMERY WASHINGTON [Primary Care Provider] - Follow up with PCP 1 day CORDELL RASHEED DO [ACTIVE STAFF] - Follow up/PCP as directed (Call tomorrow for reevaluation appointment) Instructions: Swollen Joints (DC), Preventing falls - ED discharge instructions Additional Instructions: Continue with your current pain medications as needed. Intermittent ice application. Use cane/walker for ambulation, consult your orthopedic surgeon tomorrow for reevaluation. Return to ER for any worsening.
[2024-10-08 21:20] VITALS: BP 134/67; PULSE 78; RESP 18
--- NOTE | 2024-10-09 08:44 | XRAY ---
Indication: Status post fall. Comparison: May 10, 2020 Portable AP pelvis and 2-view right hip again demonstrates osteopenia, intact right total hip arthroplasty, mild left hip degenerative arthropathy, moderate lower lumbar degenerative spondylosis, mild pubic symphysis degenerative changes, and mild scattered vascular calcifications. No new/acute abnormalities.
--- NOTE | 2024-10-09 08:48 | XRAY ---
Indication: Pain following fall. Comparison: None 2 portable views right humerus interpreted with same day elbow exam demonstrates osteopenia, old distal humeral shaft fracture with intact orthopedic fixation plate/screws, moderate acromioclavicular/glenohumeral degenerative arthropathy with spurring, mild multilevel cervicothoracic degenerative spondylosis, and T7/T8 vertebroplasty. Also high riding humeral head commonly seen with rotator cuff tear. No other abnormalities. Impression: Nonacute right humerus with chronic features.
--- NOTE | 2024-10-09 08:48 | XRAY ---
Indication: Pain following fall. Comparison: None 3 portable views right elbow demonstrates osteopenia. No other bony, articular, or soft tissue abnormalities. Humerus reported separately.
== END 2024-10-08 21:44 | disposition home or self-care (01) ==
LOC: ED 16:07
DX: S80.01XA Contusion of right knee, initial encounter (principal); S70.01XA Contusion of right hip, initial encounter; S40.021A Contusion of right upper arm, initial encounter; S41.111A Laceration without foreign body of right upper arm, initial encounter; W06.XXXA Fall from bed, initial encounter; Y92.122 Bedroom in nursing home as the place of occurrence of the external cause; I10 Essential (primary) hypertension; Z79.899 Other long term (current) drug therapy
CPT/HCPCS: 73030; 73080; 73502; 73562; 99283; 99284; A9270-GY